=== PATIENT | female | born 1975 | race American Indian/Alaskan Native ===

== ENCOUNTER 2016-08-29 18:50 | Inpatient (IN) | payer MEDICARE ==
[2016-08-29 20:12] LABS: Red Blood Count 4.86 M/mm3 (3.65-5.03)
[2016-08-29 20:13] LABS: Hematocrit 38.6 % (30.3-42.9); Hemoglobin 12.4 gm/dl (10.1-14.3); Mean Corpuscular HGB Conc 32 % (30-34); Mean Corpuscular Hemoglobin 26 pg (28-32); Mean Corpuscular Volume 79 fl (79-97); Platelet Count 326 K/mm3 (140-440); Red Cell Distribution Width 14.6 % (13.2-15.2)
[2016-08-29 20:14] LABS: Basophils % (Auto) 0.3 % (0.0-1.8); Eosinophils % (Auto) 0.2 % (0.0-4.3)
[2016-08-29 20:23] LABS: Alanine Aminotransferase 25 units/L (7-56); Albumin 2.1 g/dL (3.9-5); Albumin/Globulin Ratio 0.4 %; Alkaline Phosphatase 164 units/L (35-129); Anion Gap 20 mmol/L; Bilirubin,Total 0.4 mg/dL (0.1-1.2); Blood Urea Nitrogen 10 mg/dL (7-17); Calcium 8.4 mg/dL (8.4-10.2); Carbon Dioxide 23 mmol/L (22-30); Chloride 89.3 mmol/L (98-107); Glucose 444 mg/dL (65-100); Potassium 4.3 mmol/L (3.6-5.0); Sodium 128 mmol/L (137-145); Total Protein 7.3 g/dL (6.3-8.2)
[2016-08-30 01:54] LABS: Bacteria,Urine 1+ /HPF (Negative); Bilirubin,Urine NEG (Negative); Blood,Urine MOD (Negative); Ketones,Urine NEG (Negative); Leukocyte Esterase,Urine NEG (Negative); Mucus,Urine FEW /HPF; Nitrite,Urine NEG (Negative)
[2016-08-30] MEDS ORDERED: VANCOMYCIN/NS 1 GM/250 ML 1 GM/250 ML BAG IV ONE (06:18)
--- NOTE | 2016-08-30 06:22 | Emergency Department Report ---
HPI - General Chief Complaint: Skin/Abscess/Foreign Body Time Seen by Provider: 08/30/16 06:10 - HPI HPI: 41-year-old Afro-Monegasque female presents to the emergency department from home with complaint of pain, intermittent fever, and feeling "sick" from a abdominal abscess. The patient was seen in for about 1 week ago for this abscess and was given clindamycin on a ten-day course. She has been taking the medication compliantly but says that the abscess is gotten larger, worse, and is causing other symptoms. She is not taken anything else for symptoms prior to presentation. Patient does have a history of hypertension and insulin- dependent diabetes. She currently lives in [place] and sees Dr. Lila Farr for her primary care needs but is trying to move to [place]. She denies any nausea, vomiting, chest pain or shortness of breath. ED Past Medical Hx - Past Medical History Previous Medical History?: Yes Hx Hypertension: Yes (seen by right of way appraiser with clearance) Hx Congestive Heart Failure: No Hx Diabetes: Yes Hx Renal Disease: No Hx Sickle Cell Disease: No Hx Asthma: Yes (stable on PRN inhalers; no recent flares) Hx COPD: No Hx HIV: No Additional medical history: High cholestrol. - Surgical History Past Surgical History?: Yes Additional Surgical History: c-sectionx3. abd surgery. - Social History Smoking Status: Never Smoker Substance Use Type: None - Medications Home Medications: Home Medications Medication Instructions Recorded Confirmed Last Taken Type Gabapentin [Gabapentin] 300 mg PO TID PRN 07/02/15 08/30/16 08/29/16 History Insulin Regular, Human [HumuLIN R] 40 unit SQ BS PRN 07/02/15 08/30/16 08/29/16 History Clindamycin [Clindamycin CAP] 300 mg PO Q6H 08/30/16 08/30/16 08/29/16 History ED Review of Systems ROS: Stated complaint: ABSCESS ON STOMACH Other details as noted in HPI Comment: All other systems reviewed and negative Constitutional: chills, fever Eyes: denies: eye pain, eye discharge, vision change ENT: denies: ear pain, throat pain Respiratory: denies: cough, shortness of breath, wheezing Cardiovascular: denies: chest pain, palpitations Gastrointestinal: abdominal pain. denies: nausea, vomiting Genitourinary: denies: urgency, dysuria, discharge Musculoskeletal: denies: back pain, joint swelling, arthralgia Skin: lesions, change in color Neurological: denies: headache, weakness, paresthesias Physical Exam - Physical Exam Vital Signs: Vital Signs 08/29/16 08/30/16 19:14 04:52 Temperature 99.7 F H Pulse Rate 119 H 110 H Respiratory 16 18 Rate Blood Pressure 154/95 Blood Pressure 127/82 [Right] O2 Sat by Pulse 100 100 Oximetry Physical Exam: GENERAL: The patient is well-developed well-nourished. HEENT: Normocephalic. Atraumatic. Extraocular motions are intact. Patient has moist mucous membranes. Pupils equal reactive to light bilaterally. NECK: Supple. Trachea is midline. CHEST/LUNGS: Clear to auscultation. There is no respiratory distress noted. HEART/CARDIOVASCULAR: Regular. There is no tachycardia. There is no gallop rub or murmur. ABDOMEN: Abdomen is soft. Patient has tenderness to palpation to the right lower quadrant of the abdomen where she has a cellulitis and abscess. Morbidly obese habitus. Patient has normal bowel sounds. SKIN: There is an area of cellulitis to the right lower quadrant of the abdomen with some erythema and thickened orange peel appearing skin. There is one area to the lateral portion of the cellulitis that appears to have been a previous abscess that is opened up and drained and there is another more medial portion that might be a more current, fluctuant abscess. NEURO: The patient is awake, alert, and oriented. The patient is cooperative. The patient has no focal neurologic deficits. The patient has normal speech. MUSCULOSKELETAL: There is no tenderness or deformity. There is no limitation range of motion. There is no evidence of acute injury. ED Course Vital Signs 08/29/16 08/30/16 19:14 04:52 Temperature 99.7 F H Pulse Rate 119 H 110 H Respiratory 16 18 Rate Blood Pressure 154/95 Blood Pressure 127/82 [Right] O2 Sat by Pulse 100 100 Oximetry ED Medical Decision Making - Lab Data Result diagrams: 08/29/16 19:35 08/29/16 19:35 - Radiology Data Radiology results: report reviewed CT of the abdomen and pelvis with IV contrast shows a new right lateral [place] hernia containing a normal loop of a descending colon. Interval hernia repair of midline periumbilical hernia. There is no evidence to suggest any ischemia or incarceration of the bowel. - Medical Decision Making This is a 41 year old female presents emergency Department with complaint of some right lower quadrant abdominal pain. She has a previous abscess and she does not think it is responding to the clindamycin she has been on. Patient does have a visible cellulitis and a superficial area that could be abscess. Patient has labs that show a leukocytosis, elevated lactic acid level. Patient' s vital signs show some mild tachycardia and a low-grade fever. All this together is concerning for sepsis. Blood cultures were sent and the patient was started on vancomycin. A CT of the abdomen and pelvis with IV contrast was done that shows a new spagelian hernia that is not incarcerated or strangulated. There is no obvious deep abdominal abscess but there is obviously visible superficial cellulitis and possible abscess there. Patient will be admitted to hospital for further evaluation and has been accepted for admission by will be adequate. Patient's blood sugar levels elevated. There is no visible acidosis on the labs. Unknown if there is any ketosis as the beta hydroxybutyrate is currently a send out test. Patient was given IV fluid resuscitation and IV insulin and her blood sugar will continue to be followed. - Differential Diagnosis abscess, cellulitis, diverticulitis, colitis Critical Care Time: No Critical care attestation.: If time is entered above; I have spent that time in minutes in the direct care of this critically ill patient, excluding procedure time. ED Disposition Clinical Impression: Abdominal wall cellulitis, Hyperglycemia Sepsis Qualifiers: Sepsis type: sepsis due to unspecified organism Qualified Code(s): A41.9 - Sepsis, unspecified organism Uncontrolled diabetes mellitus Qualifiers: Diabetes mellitus type: type 1 Diabetes mellitus complication status: with hyperglycemia Qualified Code(s): E10.65 - Type 1 diabetes mellitus with hyperglycemia Morbid obesity Qualifiers: Obesity type: unspecified obesity type Qualified Code(s): E66.01 - Morbid ( severe) obesity due to excess calories Disposition: OP ADMITTED IP TO THIS HOSP Is pt being admited?: Yes Condition: Stable Referrals: PRIMARY CARE,MD [Primary Care Provider] - 3-5 Days Time of Disposition: 10:21
[2016-08-30] MEDS ORDERED: NACL 0.9% 1000 ML 1,000 ML IV ONE (06:24)
[2016-08-30] MEDS ORDERED: TYLENOL PO ONE (07:58)
--- NOTE | 2016-08-30 08:56 | Cat Scan Report ---
FINAL REPORT EXAM: CT ABDOMEN PELVIS W CON HISTORY: Abd abscess TECHNIQUE: Standard enhanced CT of the abdomen and pelvis. Delayed images through the kidneys and bladder were obtained. Coronal and sagittal reconstruction was also performed. Contrast: 100 mL Omnipaque 300 given IV. PRIORS: CT a/P 11/14/2014 FINDINGS: There is no evidence for abscess or acute inflammatory process. There has been interval repair of a midline periumbilical hernia with ventral hernia mesh in place. However, there is now a right lateral spigelian hernia which contains a normal loop of ascending colon. Within the abdomen, the liver, spleen, pancreas, adrenal glands, and kidneys are unremarkable. The gallbladder has been surgically removed. No evidence for retroperitoneal or pelvic lymphadenopathy is seen. The bowel loops have normal caliber. No soft tissue mass, fluid collection, inflammatory change, or free air is seen within the abdomen or pelvis. The appendix is normal. Within the pelvis, the bladder is unremarkable. The uterus is normal. No evidence for mass or lymphadenopathy is seen in the pelvis. Images through the upper abdomen include the lung bases which are expanded and clear. Bony structures show no focal abnormalities and are intact. IMPRESSION: 1. New right lateral spigelian hernia containing a normal loop of ascending colon 2. Interval hernia repair of a midline periumbilical hernia 3. No evidence for abscess.
[2016-08-30] MEDS ORDERED: D50W (25GM) IV PRN (10:43)
[2016-08-30] MEDS ORDERED: VANCOMYCIN VIAL IV SCH (11:15)
--- NOTE | 2016-08-30 11:24 | History and Physical Report ---
History of Present Illness Date of examination: 08/30/16 Date of admission: 08/30/16 Chief complaint: Abscess in the anterior abdominal wall, very elevated blood sugar History of present illness: Patient is a 41-year-old lady was a history of diabetes mellitus, was in the process of moving to [place] 2 weeks ago. On the left her that she discovered that she had redness with abscess in the right lower quadrants of the anterior abdominal wall. She doctor who started her on 2 antibiotics. She's been unable to eat because of her symptoms. Has fever and chills. Denies any nausea vomiting. Has polyuria polydipsia and polyphagia. She has been in the 200s at home. Patient has not been taking her insulin because she has been unable to eat since onset of her symptoms. Denies any chest pain, no shortness of breath orthopnea paroxysmal nocturnal dyspnea. At emergency department patient also was found to be 440. Commenced on IV medications and insulin. Ketones were negative Past History Past Medical History: diabetes (with diabetic peripheral neuropathy, asthma, obesity), hypertension, hyperlipidemia Medications and Allergies Allergies Allergy/AdvReac Type Severity Reaction Status Date / Time No Known Allergies Allergy Verified 05/02/15 15:33 Home Medications Medication Instructions Recorded Confirmed Last Taken Type Gabapentin [Gabapentin] 300 mg PO TID PRN 07/02/15 08/30/16 08/29/16 History Insulin Regular, Human [HumuLIN R] 40 unit SQ BS PRN 07/02/15 08/30/16 08/29/16 History Clindamycin [Clindamycin CAP] 300 mg PO Q6H 08/30/16 08/30/16 08/29/16 History Active Meds: Active Medications Aspirin (Aspirin) 325 mg PO QDAY RAJAN Dextrose (D50w (25gm)) 50 ml IV PRN PRN PRN Reason: Hypoglycemia Gabapentin (Neurontin) 300 mg PO TID PRN PRN Reason: Pain Heparin Sodium (Porcine) (Heparin) 5,000 unit SUB-Q Q12HR RAJAN Levofloxacin/Dextrose (Levaquin 750mg/150ml) 750 mg in 150 mls @ 100 mls/hr IV Q24HR RAJAN PRN Reason: Protocol Insulin Aspart (Novolog) 0 units SUB-Q ACHS RAJAN PRN Reason: Protocol Insulin Detemir (Levemir) 20 units SUB-Q QHS RAJAN Vancomycin HCl (Vancomycin Pharmacy To Dose) 1 each IV PKCONSULT ON LICENSE OF [facility] PRN Reason: Protocol Vancomycin HCl (Vancomycin Vial) 1,000 mg IV DAILY ON LICENSE OF [facility] PRN Reason: Protocol Review of systems Constitutional: Well Nouridhed and Well developed. Obese Head: NC/ AT Eyes: Denies any visual impairments. No discharge from the eyes Nose: Denies any rhinorrhea or epistaxis Throats: Denies any post nasal drainage. Ears: Denies any hearing deficits Cardiovascular system: Denies any chest pain, shortness of breath, orthopnea, paroxysmal nocturnal dyspnea, or palpitation. Respiratory system: Denies any cough, difficulty breathing, wheezing, pleuritic chest pain, Gastrointestinal system: Denies any abdominal pain, nausea vomiting, hematemesis or melena. Neurological system: Denies any headache, slurred speech, facial droop, lateralizing weakness Genitalia system: Denies any dysuria, urinary frequency or urgency, urethral discharge Skin: Abscess right lower quadrant of the anterior abdominal wall draining yellowish-brown. Hematological: Denies any cervical tenderness hemorrhages or petechia. Immunological: Denies any multiple septic spots, Lymphatic: Denies any generalized lymphadenopathy. Endocrine: Denies any polyuria, polydipsia, polyphagia. No heat or cold intolerance. Musculoskeletal system: No joint pain or swelling. Psych: No visual, tactile, auditory or hallucination Exam - Constitutional Vitals: Temp Pulse Resp BP Pulse Ox 100.8 F H 104 H 16 141/86 97 08/30/16 07:46 08/30/16 07:46 08/30/16 07:46 08/30/16 08:00 08/30/16 08:00 General appearance: Present: no acute distress, obese - EENT Eyes: Present: PERRL ENT: hearing intact, clear oral mucosa - Neck Neck: Present: supple, normal ROM - Respiratory Respiratory effort: normal Respiratory: bilateral: CTA - Cardiovascular Heart Sounds: Present: S1 & S2. Absent: rub, click - Extremities Extremities: pulses symmetrical, No edema Peripheral Pulses: within normal limits - Abdominal General gastrointestinal: Present: soft, non-tender, non-distended, normal bowel sounds Female genitourinary: Present: normal - Integumentary Integumentary: Present: clear, warm, dry, erythema (on the right lower quadrant and anterior abdominal wall) - Musculoskeletal Musculoskeletal: gait normal, strength equal bilaterally - Psychiatric Psychiatric: appropriate mood/affect, intact judgment & insight - Neurologic Neurologic: CNII-XII intact, moves all extremities Results - Labs CBC & Chem 7: 08/29/16 19:35 08/29/16 19:35 Labs: Abnormal lab results 08/29/16 08/29/16 08/30/16 Range/Units 19:35 19:35 07:07 WBC 15.0 H (4.5-11.0) K/mm3 MCH 26 L (28-32) pg Lymph % (Auto) 8.1 L (13.4-35.0) % [place] % (Auto) 9.0 H (0.0-7.3) % [place] # 1.4 H (0.0-0.8) K/mm3 Seg Neutrophils % 82.4 H (40.0-70.0) % Seg Neutrophils # 12.3 H (1.8-7.7) K/mm3 Sodium 128 L (137-145) mmol/L Chloride 89.3 L (98-107) mmol/L Glucose 444 H (65-100) mg/dL Lactic Acid 2.1 H* (0.7-2.0) mmol/L Alkaline Phosphatase 164 H (35-129) units/L Albumin 2.1 L (3.9-5) g/dL Assessment and Plan 1. Abscess with cellulitis of the anterior abdominal wall right lower quadrant : Obtain a wound culture, blood culture, wound care, was patient on IV vancomycin and Levaquin. Likely organism is staph aureus from uncontrolled diabetes mellitus Patient has similar experience in the left lower quadrant on the anterior abdominal wall. Surgical consult obtained. Spoke with Dr. Mccracken 2. Sepsis: From anterior abdominal wall abscess. Patient has sinus tachycardia , tachypnea, leukocytosis and fever 100.8. Blood culture obtained. Wound culture obtained. Patient commenced on IV Levaquin and vancomycin. Wound care ordered. 3. Diabetes mellitus type 2: Uncontrolled. Noncompliant with medication. Commence patient on sliding scale insulin. Consistent, hydrated diet. Optimize wound infection control to enhance glycemic control 4. Diabetic peripheral neuropathy: Continue with gabapentin. 5. Morbid obesity: Controlled. 6. Obstructive sleep apnea: Patient is on CPAP machine at night. will continue with the same 7. DVT prophylaxis with heparin, GI prophylaxis with Pepcid spent 35 minutes during this admission process and that her patient care review of medical records and laboratory data. Explained To the Patient Was Presents Understanding - Patient Problems (1) Abdominal wall abscess Onset Date: 08/30/16 Current Visit: Yes Status: Acute Plan to address problem: Abscess with Cellulitis likely secondary to staph infection from uncontrolled diabetes mellitus. Patient has similar episode on the left lateral aspect of the anterior abdominal wall status post I&D. We will obtain wound culture, blood culture, commence patient on Levaquin and vancomycin. Surgical consult was obtained for incision and drainage. Discussed with Dr. Mccracken. (2) Sepsis Onset Date: 08/30/16 Current Visit: Yes Status: Acute Qualifiers: Sepsis type: sepsis due to unspecified organism Qualified Code(s): A41.9 - Sepsis, unspecified organism (3) Diabetes Onset Date: 08/30/16 Current Visit: No Status: Acute Qualifiers: Diabetes mellitus type: D Diabetes mellitus complication status: D Diabetes mellitus complication detail: D Diabetic retinopathy severity: D Proliferative retinopathy type: P Diabetes mellitus macular edema: D Diabetes mellitus terminal operator insulin use: D Laterality: L Chronic kidney disease stage: C (4) Hypertension Onset Date: 08/30/16 Current Visit: No Status: Acute Qualifiers: Hypertension type: H
[2016-08-30] MEDS ORDERED: ASPIRIN ONE (11:29)
[2016-08-30] MEDS ORDERED: HEPARIN ONE (11:29)
[2016-08-30] MEDS: ASPIRIN PO SCH (11:41)
[2016-08-30] MEDS: NOVOLOG SUB-Q SCH ×3 (11:41→22:49)
[2016-08-30] MEDS: HEPARIN SUB-Q SCH ×2 (11:41→22:49)
[2016-08-30] MEDS ORDERED: VANCOMYCIN PHARMACY TO DOSE IV SCH (12:00)
[2016-08-30] MEDS: LEVAQUIN 750MG/150ML 750 MG/150 ML BAG IV SCH (13:11)
--- NOTE | 2016-08-30 14:49 | Consultation ---
HISTORY OF PRESENT ILLNESS: I was called by Dr. Blake to see this patient. She is a 41-year-old black female, overweight. Her BSA is 2.89 and BMI is 56.7. She is 5 feet 7 inches. She is very obese. She is a known case of diabetes mellitus for the last 10-11 years; she is on insulin for that, which I believe maybe she is not taking it really well. Her blood sugar yesterday at home was in the range of about 400 according to her. I was called to evaluate her because of some cellulitis over the right lower quadrant with evidence of ? an abscess. She had a sinus tract draining some purulent material in that area. She had no nausea or vomiting. She had a spigelian hernia on the right side. She had questionable recurrence of her umbilical hernia that was repaired about 13 months ago. I was asked to evaluate her from a general surgical point of view. ALLERGIES: Allergic reactions were denied. MEDICATIONS: Mainly insulin and she is on vancomycin and Levaquin at the present time, by [place]. SOCIAL HISTORY: She has 3 children. She does not work. PHYSICAL EXAMINATION: GENERAL: At this point showed a very obese, bonita black female. She is in no distress. She told me she felt a little bit relieved now. HEAD AND NECK: Essentially negative. BREASTS: Symmetric. No evidence of any specific or discrete masses. CHEST: Essentially clear to me. HEART: Sounds normal. ABDOMEN: Protuberant, very stuporous, severe tenderness to the right lower quadrant with evidence of an induration and redness with a sinus tract releasing purulent material in the mid right lower abdomen. EXTREMITIES: Showed no evidence of any DVT, moderate edema. IMPRESSION: 1. Cellulitis with abscess formation ? right lower quadrant. 2. Status post umbilical hernia repair about 1 year ago. 3. Spigelian hernia, right side. 4. Exogenous obesity. 5. Diabetes mellitus that is not well controlled. Surgically speaking, we need to pursue that further. She is already on antibiotics. We will try to incise and drain and/or pack this area in the right lower quadrant on Thursday and then we will go from there. I had a lengthy talk with the patient as to the problem that you are facing. She understands, and we will go from there. JOB# [id number] MING/TEMITOPE
[2016-08-30] MEDS: VANCOMYCIN VIAL 1,500 MG in NACL 0.9% 500 ML 500 ML IV SCH ×2 (15:56→22:50)
[2016-08-30] MEDS: NEURONTIN PO PRN (22:48)
[2016-08-30] MEDS: LEVEMIR SUB-Q SCH (22:49)
[2016-08-31 06:40] LABS: Hematocrit 29.8 % (30.3-42.9); Hemoglobin 9.5 gm/dl (10.1-14.3); Mean Corpuscular HGB Conc 32 % (30-34); Mean Corpuscular Hemoglobin 25 pg (28-32); Mean Corpuscular Volume 79 fl (79-97); Platelet Count 302 K/mm3 (140-440); Red Blood Count 3.78 M/mm3 (3.65-5.03); Red Cell Distribution Width 14.8 % (13.2-15.2); White Blood Count 15.1 K/mm3 (4.5-11.0)
[2016-08-31 06:53] LABS: Alanine Aminotransferase 17 units/L (7-56); Albumin 2.3 g/dL (3.9-5); Albumin/Globulin Ratio 0.5 %; Alkaline Phosphatase 127 units/L (35-129); Anion Gap 16 mmol/L; BUN/Creatinine Ratio 17.77; Bilirubin,Total 0.3 mg/dL (0.1-1.2); Blood Urea Nitrogen 16 mg/dL (7-17); Carbon Dioxide 25 mmol/L (22-30); Chloride 96.8 mmol/L (98-107); Glucose 170 mg/dL (65-100); Magnesium 2.1 mg/dL (1.7-2.3); Phosphorous 2.7 mg/dL (2.5-4.5); Potassium 4.2 mmol/L (3.6-5.0); Sodium 134 mmol/L (137-145); Total Protein 6.6 g/dL (6.3-8.2)
[2016-08-31] MEDS: VANCOMYCIN VIAL 1,500 MG in NACL 0.9% 500 ML 500 ML IV SCH ×2 (07:45→16:59)
[2016-08-31 08:25] LABS: Basophils % (Manual) 0 % (0.0-1.8); Blastocytes % (Manual) 0 %; Eosinophils % (Manual) 0 % (0.0-4.3)
[2016-08-31 08:26] LABS: Anisocytosis 1+
[2016-08-31 08:27] LABS: Diff Status Complete
[2016-08-31] MEDS: NOVOLOG SUB-Q SCH ×4 (08:52→23:41)
--- NOTE | 2016-08-31 09:49 | Progress Note ---
Assessment and Plan Assessment and plan: 1. Abscess with cellulitis of the anterior abdominal wall right lower quadrant : Obtain a wound culture, blood culture, wound care, continue IV abx, fup with surgery, Dr delarosa for I&D, fup intraop cultures 2. Sepsis: From anterior abdominal wall abscess. continue sepsis protocol, continue abx 3. Diabetes mellitus type 2: optimize insulins 4. Diabetic peripheral neuropathy: Continue with gabapentin. 5. Obstructive sleep apnea: continue CPAP [facility] Hospitalist Physical - Constitutional Vitals: Temp Pulse Resp BP Pulse Ox 99.9 F H 93 H 20 131/64 95 08/31/16 08:28 08/31/16 08:28 08/31/16 08:28 08/31/16 08:28 08/31/16 08:28 General appearance: Present: no acute distress, obese Results - Labs CBC & Chem 7: 08/31/16 05:50 08/31/16 05:50 Labs: Laboratory Last Values WBC 15.1 K/mm3 (4.5-11.0) H 08/31/16 05:50 RBC 3.78 M/mm3 (3.65-5.03) 08/31/16 05:50 Hgb 9.5 gm/dl (10.1-14.3) L 08/31/16 05:50 Hct 29.8 % (30.3-42.9) L D 08/31/16 05:50 MCV 79 fl (79-97) 08/31/16 05:50 MCH 25 pg (28-32) L 08/31/16 05:50 MCHC 32 % (30-34) 08/31/16 05:50 RDW 14.8 % (13.2-15.2) 08/31/16 05:50 Plt Count 302 K/mm3 (140-440) 08/31/16 05:50 Lymph % (Auto) [employer] 08/31/16 05:50 [place] % (Auto) [employer] 08/31/16 05:50 Eos % (Auto) [employer] 08/31/16 05:50 Baso % (Auto) [employer] 08/31/16 05:50 Lymph # [employer] 08/31/16 05:50 Gall[place] # [employer] 08/31/16 05:50 Eos # [employer] 08/31/16 05:50 Baso # [employer] 08/31/16 05:50 Add Manual Diff Complete 08/31/16 05:50 Total Counted 100 08/31/16 05:50 Seg Neutrophils % [employer] 08/31/16 05:50 Seg Neuts % (Manual) 82.0 % (40.0-70.0) H 08/31/16 05:50 Band Neutrophils % 0 % 08/31/16 05:50 Lymphocytes % (Manual) 7.0 % (13.4-35.0) L 08/31/16 05:50 Reactive Lymphs % (Man) 0 % 08/31/16 05:50 Monocytes % (Manual) 11.0 % (0.0-7.3) H 08/31/16 05:50 Eosinophils % (Manual) 0 % (0.0-4.3) 08/31/16 05:50 Basophils % (Manual) 0 % (0.0-1.8) 08/31/16 05:50 Metamyelocytes % 0 % 08/31/16 05:50 Myelocytes % 0 % 08/31/16 05:50 Promyelocytes % 0 % 08/31/16 05:50 Blast Cells % 0 % 08/31/16 05:50 Nucleated RBC % Not Reportable 08/31/16 05:50 Seg Neutrophils # [employer] 08/31/16 05:50 Seg Neutrophils # Man 12.4 K/mm3 (1.8-7.7) H 08/31/16 05:50 Band Neutrophils # 0.0 K/mm3 08/31/16 05:50 Lymphocytes # (Manual) 1.1 K/mm3 (1.2-5.4) L 08/31/16 05:50 Abs React Lymphs (Man) 0.0 K/mm3 08/31/16 05:50 Monocytes # (Manual) 1.7 K/mm3 (0.0-0.8) H 08/31/16 05:50 Eosinophils # (Manual) 0.0 K/mm3 (0.0-0.4) 08/31/16 05:50 Basophils # (Manual) 0.0 K/mm3 (0.0-0.1) 08/31/16 05:50 Metamyelocytes # 0.0 K/mm3 08/31/16 05:50 Myelocytes # 0.0 K/mm3 08/31/16 05:50 Promyelocytes # 0.0 K/mm3 08/31/16 05:50 Blast Cells # 0.0 K/mm3 08/31/16 05:50 WBC Morphology Not Reportable 08/31/16 05:50 Hypersegmented Neuts Not Reportable 08/31/16 05:50 Hyposegmented Neuts Not Reportable 08/31/16 05:50 Hypogranular Neuts Not Reportable 08/31/16 05:50 Smudge Cells Not Reportable 08/31/16 05:50 Toxic Granulation Not Reportable 08/31/16 05:50 Toxic Vacuolation Not Reportable 08/31/16 05:50 Dohle Bodies Not Reportable 08/31/16 05:50 Pelger-Huet Anomaly Not Reportable 08/31/16 05:50 Eddy Rods Not Reportable 08/31/16 05:50 Platelet Estimate Appears normal 08/31/16 05:50 Clumped Platelets Not Reportable 08/31/16 05:50 Plt Clumps, EDTA Not Reportable 08/31/16 05:50 Large Platelets Not Reportable 08/31/16 05:50 Giant Platelets Not Reportable 08/31/16 05:50 Platelet Satelliting Not Reportable 08/31/16 05:50 Plt Morphology Comment Not Reportable 08/31/16 05:50 RBC Morphology Not Reportable 08/31/16 05:50 Dimorphic RBCs Not Reportable 08/31/16 05:50 Polychromasia Not Reportable 08/31/16 05:50 Hypochromasia Not Reportable 08/31/16 05:50 Poikilocytosis Not Reportable 08/31/16 05:50 Anisocytosis 1+ 08/31/16 05:50 Microcytosis Not Reportable 08/31/16 05:50 Macrocytosis Not Reportable 08/31/16 05:50 Spherocytes Not Reportable 08/31/16 05:50 Pappenheimer Bodies Not Reportable 08/31/16 05:50 Sickle Cells Not Reportable 08/31/16 05:50 Target Cells Not Reportable 08/31/16 05:50 Tear Drop Cells Not Reportable 08/31/16 05:50 Ovalocytes Not Reportable 08/31/16 05:50 Helmet Cells Not Reportable 08/31/16 05:50 [place] Bodies Not Reportable 08/31/16 05:50 [place] Rings Not Reportable 08/31/16 05:50 Praveen Cells Not Reportable 08/31/16 05:50 Bite Cells Not Reportable 08/31/16 05:50 Crenated Cell Not Reportable 08/31/16 05:50 Elliptocytes Not Reportable 08/31/16 05:50 Acanthocytes (Spur) Not Reportable 08/31/16 05:50 Rouleaux Not Reportable 08/31/16 05:50 Hemoglobin C Crystals Not Reportable 08/31/16 05:50 Schistocytes Not Reportable 08/31/16 05:50 Malaria parasites Not Reportable 08/31/16 05:50 Juan [place] Bodies Not Reportable 08/31/16 05:50 Hem Pathologist Commnt No 08/31/16 05:50 VBG pH 7.368 (7.320-7.420) 08/30/16 07:07 Sodium 134 mmol/L (137-145) L 08/31/16 05:50 Potassium 4.2 mmol/L (3.6-5.0) 08/31/16 05:50 Chloride 89.3 mmol/L (98-107) L 08/29/16 19:35 Carbon Dioxide 25 mmol/L (22-30) 08/31/16 05:50 Anion Gap 20 mmol/L 08/29/16 19:35 BUN 16 mg/dL (7-17) 08/31/16 05:50 Creatinine 0.9 mg/dL (0.7-1.2) 08/31/16 05:50 Estimated GFR > 60 ml/min 08/31/16 05:50 BUN/Creatinine Ratio 17.77 % 08/31/16 05:50 Glucose 170 mg/dL (65-100) H 08/31/16 05:50 Hemoglobin A1c 9.7 % (4-6) H 08/30/16 12:09 Lactic Acid 1.2 mmol/L (0.7-2.0) 08/30/16 11:15 Calcium 8.0 mg/dL (8.4-10.2) L 08/31/16 05:50 Phosphorus 2.7 mg/dL (2.5-4.5) 08/31/16 05:50 Magnesium 2.1 mg/dL (1.7-2.3) 08/31/16 05:50 Total Bilirubin 0.3 mg/dL (0.1-1.2) 08/31/16 05:50 AST 19 units/L (5-40) 08/31/16 05:50 ALT 17 units/L (7-56) 08/31/16 05:50 Alkaline Phosphatase 127 units/L (35-129) 08/31/16 05:50 Total Protein 6.6 g/dL (6.3-8.2) 08/31/16 05:50 Albumin 2.3 g/dL (3.9-5) L 08/31/16 05:50 Albumin/Globulin Ratio 0.5 % 08/31/16 05:50 Triglycerides 126 mg/dL (2-149) 08/30/16 12:09 Cholesterol 106 mg/dL (50-199) 08/30/16 12:09 LDL Cholesterol Direct 74 mg/dL (50-130) 08/30/16 12:09 HDL Cholesterol 7 mg/dL (40-59) L 08/30/16 12:09 Cholesterol/HDL Ratio 15.14 % 08/30/16 12:09 Urine Color Yellow (Yellow) 08/29/16 Unknown Urine Turbidity Clear (Clear) 08/29/16 Unknown Urine pH 6.0 (5.0-7.0) 08/29/16 Unknown Ur Specific [place] 1.027 (1.003-1.030) 08/29/16 Unknown Urine Protein 100 mg/dl mg/dL (Negative) 08/29/16 Unknown Urine Glucose (UA) >=500 mg/dL (Negative) 08/29/16 Unknown Urine Ketones Neg mg/dL (Negative) 08/29/16 Unknown Urine Blood Mod (Negative) 08/29/16 Unknown Urine Nitrite Neg (Negative) 08/29/16 Unknown Urine Bilirubin Neg (Negative) 08/29/16 Unknown Urine Urobilinogen 4.0 mg/dL (<2.0) 08/29/16 Unknown Ur Leukocyte Esterase Neg (Negative) 08/29/16 Unknown Urine WBC (Auto) 3.0 /HPF (0.0-6.0) 08/29/16 Unknown Urine RBC (Auto) 7.0 /HPF (0.0-6.0) 08/29/16 Unknown U Epithel Cells (Auto) 2.0 /HPF (0-13.0) 08/29/16 Unknown Urine Bacteria (Auto) 1+ /HPF (Negative) 08/29/16 Unknown Urine Mucus Few /HPF 08/29/16 Unknown Urine HCG, Qual Negative (Negative) 08/30/16 Unknown Vancomycin Trough 20.5 ug/mL (5.0-20.0) H 08/31/16 05:50 Ketones mmol/L (-0.28) 08/30/16 07:07
[2016-08-31] MEDS: MORPHINE IV PRN ×3 (09:56→23:43)
[2016-08-31] MEDS: ASPIRIN PO SCH (11:52)
[2016-08-31] MEDS: HEPARIN SUB-Q SCH ×2 (11:52→22:37)
[2016-08-31] MEDS: NEURONTIN PO PRN (11:53)
[2016-08-31] MEDS: LEVAQUIN 750MG/150ML 750 MG/150 ML BAG IV SCH (15:02)
--- NOTE | 2016-08-31 16:52 | Progress Note ---
Subjective Patient Reports: Positive: no new complaints, feels better Narrative: Will incise and drain under GA in AM ,sugar still high . Objective Vital Signs - 12hr 08/31/16 08/31/16 08/31/16 06:00 08:28 12:42 Temperature 98.0 F 99.9 F H 98.9 F Pulse Rate [ 99 H 93 H 92 H From Monitor] Respiratory 22 20 20 Rate Blood Pressure 127/67 131/64 155/78 [Left Arm] O2 Sat by Pulse 98 95 Oximetry 08/31/16 16:21 Temperature 98.3 F Pulse Rate [ 94 H From Monitor] Respiratory 20 Rate Blood Pressure 154/89 [Left Arm] O2 Sat by Pulse Oximetry - Labs 08/31/16 05:50 08/31/16 05:50 Diabetes panel 08/31/16 Range/Units 05:50 Sodium 134 L (137-145) mmol/L Potassium 4.2 (3.6-5.0) mmol/L Carbon Dioxide 25 (22-30) mmol/L BUN 16 (7-17) mg/dL Creatinine 0.9 (0.7-1.2) mg/dL Glucose 170 H (65-100) mg/dL Calcium 8.0 L (8.4-10.2) mg/dL AST 19 (5-40) units/L ALT 17 (7-56) units/L Alkaline Phosphatase 127 (35-129) units/L Total Protein 6.6 (6.3-8.2) g/dL Albumin 2.3 L (3.9-5) g/dL Calcium panel 08/31/16 Range/Units 05:50 Calcium 8.0 L (8.4-10.2) mg/dL Phosphorus 2.7 (2.5-4.5) mg/dL Albumin 2.3 L (3.9-5) g/dL Pituitary panel 08/31/16 Range/Units 05:50 Sodium 134 L (137-145) mmol/L Potassium 4.2 (3.6-5.0) mmol/L Carbon Dioxide 25 (22-30) mmol/L BUN 16 (7-17) mg/dL Creatinine 0.9 (0.7-1.2) mg/dL Glucose 170 H (65-100) mg/dL Calcium 8.0 L (8.4-10.2) mg/dL Adrenal panel 08/31/16 Range/Units 05:50 Sodium 134 L (137-145) mmol/L Potassium 4.2 (3.6-5.0) mmol/L Carbon Dioxide 25 (22-30) mmol/L BUN 16 (7-17) mg/dL Creatinine 0.9 (0.7-1.2) mg/dL Glucose 170 H (65-100) mg/dL Calcium 8.0 L (8.4-10.2) mg/dL Total Bilirubin 0.3 (0.1-1.2) mg/dL AST 19 (5-40) units/L ALT 17 (7-56) units/L Alkaline Phosphatase 127 (35-129) units/L Total Protein 6.6 (6.3-8.2) g/dL Albumin 2.3 L (3.9-5) g/dL
[2016-09-01] MEDS: VANCOMYCIN VIAL 1,500 MG in NACL 0.9% 500 ML 500 ML IV SCH ×3 (00:29→17:44)
[2016-09-01] MEDS: LEVEMIR SUB-Q SCH ×2 (00:29→22:51)
[2016-09-01 06:05] LABS: Basophils % (Auto) 0.3 % (0.0-1.8); Eosinophils % (Auto) 0.7 % (0.0-4.3); Hematocrit 28.9 % (30.3-42.9); Hemoglobin 9.4 gm/dl (10.1-14.3); Mean Corpuscular HGB Conc 33 % (30-34); Mean Corpuscular Volume 79 fl (79-97); Platelet Count 311 K/mm3 (140-440); Red Blood Count 3.66 M/mm3 (3.65-5.03); Red Cell Distribution Width 15.1 % (13.2-15.2); White Blood Count 14.3 K/mm3 (4.5-11.0)
[2016-09-01 06:10] LABS: Mean Corpuscular Hemoglobin 26 pg (28-32)
[2016-09-01 06:28] LABS: Alanine Aminotransferase 15 units/L (7-56); Albumin 2.1 g/dL (3.9-5); Albumin/Globulin Ratio 0.5 %; Alkaline Phosphatase 132 units/L (35-129); Anion Gap 16 mmol/L; Bilirubin,Total 0.3 mg/dL (0.1-1.2); Blood Urea Nitrogen 16 mg/dL (7-17); Carbon Dioxide 25 mmol/L (22-30); Glucose 151 mg/dL (65-100); Potassium 4.2 mmol/L (3.6-5.0); Sodium 135 mmol/L (137-145); Total Protein 6.4 g/dL (6.3-8.2)
[2016-09-01] MEDS: NOVOLOG SUB-Q SCH ×4 (08:15→22:50)
--- NOTE | 2016-09-01 10:45 | Admit Criteria Form ---
Admission Criteria Documentation: CELLULITIS Clinical Indications for Admission to Inpatient Care (Place 'X' for any and all applicable criteria): Admission is indicated for ANY ONE of the following(1)(2)(3)(4)(5): [ ]I. Limb-threatening infection [X]II. High-risk comorbid condition as indicated by ANY ONE of the following: [X]a) Uncontrolled diabetes (eg, HbA1c greater than 10% (0.1)) [ ]b) Cirrhosis [ ]c) Neutropenia [ ]d) Asplenia [ ]e) Immunosuppression [ ]f) Symptomatic heart failure [ ]III. Failure of outpatient therapy as indicated by ALL of the following: [ ]a) Progression or no improvement after adequate trial (minimum of 48 hours, with longer period for stable lower extremity infection) [ ]b) Adequate antibiotic regimen as indicated by use of ANY ONE of the following: [ ]i) First-generation cephalosporin (e.g., cephalexin) [ ]ii) Antistaphylococcal penicillin (e.g., dicloxacillin) [ ]iii) Penicillin-allergic patient regimen (clindamycin, extended-spectrum fluoroquinolone, or doxycycline) [ ]iv) Resistant organism (eg, methicillin-resistant Staphylococcus aureus) regimen (6) [ ]c) Outpatient intravenous therapy regimen is not appropriate due to ANY ONE of the following. (7)(8)(9)(10): [ ]i) It was tried and was not successful (eg, progression of infection). [ ]ii) It is not available or cannot be arranged in a clinically appropriate time frame (e.g., the next day). [ ]iii) Clinical presentation (eg, acuity of infection, rapidity of progression, confirmed or suspected bacteremia) is judged to require ALL of the following: [ ]1) Immediate initiation of intravenous therapy ( eg, cannot wait for next day) [ ]2) Intensity of patient monitoring and observation (eg, vital sign measurement, checks for infection progression) that cannot be provided at other than inpatient level of care [ ]IV. Mental status changes [ ]V. Bacteremia [ ]. Hemodynamic instability [ ]VII. Suspected necrotizing soft tissue infection (e.g., gas in tissue)(11)( 12) [ ]VIII. Orbital infection (13)(14) [X]IX. Associated surgical procedure (e.g., abscess drainage, debridement) not amenable to outpatient, emergency department, or observation care [ ]X. Cutaneous gangrene [ ]XI. High fever (temperature greater than 39.5 degrees C (103.1 degrees F) (oral)) not responsive to outpatient, emergency department, or observation care therapy [ ]XIII. Inpatient admission required rather than observation care (Also use Cellulitis: Observation Care as appropriate) because of ANY ONE of the following : [ ]a) Periorbital or perineal infection that is severe or worsening [ ]b) Severe pain requiring acute inpatient management [ ]c) IV fluid to replace significant ongoing (e.g., for over 24 hours) losses (greater than 3L/m2 per day) [ ]d) Compartment syndrome monitoring (17) [ ]e) Strict or protective (eg, laminar flow) isolation [ ]f) Urgent debridement or skin grafting [ ]g) Bone or joint debridement [ ]h) Immediate inpatient surgery [ ]i) Other condition, treatment or monitoring requiring inpatient admission Extended stay beyond goal length of stay may be needed for (1)(18): [ ]a) Necrotizing soft tissue infection or fasciitis [ ]b) Gram-negative infection [ ]c) Methicillin-resistant Staphylococcal aureus (MRSA) infection [ ]d) Peripheral venous insufficiency with cellulitis [ ]e) Extensive edema [ ]f) Sepsis or continued Hemodynamic instability [ ]g) Continued high fever or mental status change [ ]h) Bacteremia [ ]i) Active serious comorbid conditions ( eg, heart failure, renal insufficiency) The original [facility] content created by [facility] [employer] has been revised. The portions of the content which have been revised are identified through the use of italic text or in bold, and [facility] has neither reviewed nor approved the modified material. All other unmodified content is copyright [facility] Please see references footnoted in the original [facility] [employer] edition 2016 Admission Criteria Met: Yes
[2016-09-01] MEDS: ASPIRIN PO SCH (11:12)
[2016-09-01] MEDS: HEPARIN SUB-Q SCH ×2 (11:13→22:54)
--- NOTE | 2016-09-01 11:47 | Anesthesia Consultation ---
Anesthesia Consult and Med Hx Date of service: 09/01/16 - Airway Anesthetic Teeth Evaluation: Good ROM Head & Neck: Adequate Mental/Hyoid Distance: Adequate Mallampati Class: Class II Intubation Access Assessment: Probably Good - Pulmonary Exam CTA: Yes - Cardiac Exam Cardiac Exam: RRR - Pre-Operative Health Status ASA Pre-Surgery Classification: ASA3 Proposed Anesthetic Plan: General - Pulmonary Hx Smoking: No Hx Asthma: Yes (MILD) Hx Respiratory Symptoms: No COPD: No Hx Pneumonia: No Hx Sleep Apnea: No - Cardiovascular System Hx Hypertension: Yes Hx Coronary Artery Disease: No - Central Nervous System Hx Seizures: No CVA: No Hx Psychiatric Problems: No - Gastrointestinal Hx Gastroesophageal Reflux Disease: No - Endocrine Hx Renal Disease: No Hx End Stage Renal Disease: No Hx Insulin Dependent Diabetes: Yes (since 2001) - Hematic Hx Anemia: No Hx Sickle Cell Disease: No - Other Systems Hx Alcohol Use: No Hx Substance Use: No Hx Cancer: No Hx Obesity: Yes (BMI=52)
--- NOTE | 2016-09-01 11:48 | Anesthesia Day of Surgery ---
Anesthesia Day of Surgery - Day of Surgery Patient Examined: Yes Patient H&P Reviewed: Yes Patient is NPO: Yes
[2016-09-01] MEDS ORDERED: PEPCID IV NR (12:00)
[2016-09-01] MEDS ORDERED: VERSED IV NR (12:00)
[2016-09-01] MEDS: LEVAQUIN 750MG/150ML 750 MG/150 ML BAG IV SCH (12:06)
[2016-09-01] MEDS: NACL 0.9% 1000 ML 1,000 ML IV SCH ×2 (12:23→17:45)
[2016-09-01] MEDS ORDERED: PROAIR IH ONE (12:57)
[2016-09-01] MEDS ORDERED: DIPRIVAN 10 MG/ML IV ONE ×2 (12:57→13:29)
[2016-09-01] MEDS ORDERED: NACL 0.9% 1000 ML 1,000 ML IV SCH (13:00)
[2016-09-01] MEDS ORDERED: XYLOCAINE MPF 2% ONE (13:02)
[2016-09-01] MEDS ORDERED: ZEMURON IV ONE (13:02)
[2016-09-01] MEDS ORDERED: SUBLIMAZE ONE (13:03)
[2016-09-01] MEDS ORDERED: VERSED ONE (13:03)
[2016-09-01] MEDS ORDERED: QUELICIN ONE (13:25)
[2016-09-01] MEDS ORDERED: ZOFRAN ONE (13:42)
[2016-09-01] MEDS ORDERED: NACL 0.9% IR ONE (14:00)
[2016-09-01] MEDS ORDERED: DILAUDID ONE (14:46)
[2016-09-01] MEDS: DILAUDID IV PRN ×4 (15:41→16:10)
[2016-09-01] MEDS: MORPHINE IV PRN ×2 (17:35→22:00)
--- NOTE | 2016-09-01 17:36 | Post Anesthesia Evaluation ---
- Post Anesthesia Evaluation Patient Participated: Yes Airway Patent: Yes Stable Respiratory Function: Yes Nausea/Vomiting: No Temp > 96.8F: Yes Pain Manageable: Yes Adequeate Hydration: Yes Anesthesia Complications: No Block Receding Appropriately: Not Applicable Patient on Ventilator: No
--- NOTE | 2016-09-01 18:27 | Progress Note ---
Assessment and Plan Assessment and plan: 1. Abscess with cellulitis of the anterior abdominal wall right lower quadrant : Obtain a wound culture, blood culture, wound care, continue IV abx, fup with surgery, Dr delarosa for I&D today, fup intraop cultures 2. Sepsis: From anterior abdominal wall abscess. continue sepsis protocol, continue abx 3. Diabetes mellitus type 2: Continue insulins 4. Diabetic peripheral neuropathy: Continue with gabapentin. 5. Obstructive sleep apnea: continue CPAP QHS History Interval history: She continues to have right-sided abdominal pain, denies fevers or chills Hospitalist Physical - Physical exam Narrative exam: General: Patient appears well in no distress, obese HEENT: MMM, EOMI cardiac: S1-S2 heard lungs: clear to auscultation, abdomen: soft, nontender, nondistended bowel sounds positive Skin: There is induration, fluctuance, tenderness or warmth and erythema of the skin of the pannus on the right side extremities: no edema clubbing or cyanosis Neuro: no focal deficit Psych: appropriate behavior and mood, cognition intact - Constitutional Vitals: Temp Pulse Resp BP Pulse Ox 98 F 89 20 114/69 99 09/01/16 16:30 09/01/16 16:30 09/01/16 16:30 09/01/16 16:30 09/01/16 16:30 General appearance: Present: no acute distress, obese Results - Labs CBC & Chem 7: 09/02/16 06:46 09/02/16 06:46 Labs: Laboratory Last Values WBC 14.3 K/mm3 (4.5-11.0) H 09/01/16 05:32 RBC 3.66 M/mm3 (3.65-5.03) 09/01/16 05:32 Hgb 9.4 gm/dl (10.1-14.3) L 09/01/16 05:32 Hct 28.9 % (30.3-42.9) L 09/01/16 05:32 MCV 79 fl (79-97) 09/01/16 05:32 MCH 26 pg (28-32) L 09/01/16 05:32 MCHC 33 % (30-34) 09/01/16 05:32 RDW 15.1 % (13.2-15.2) 09/01/16 05:32 Plt Count 311 K/mm3 (140-440) 09/01/16 05:32 Lymph % (Auto) 11.0 % (13.4-35.0) L 09/01/16 05:32 [place] % (Auto) 10.4 % (0.0-7.3) H 09/01/16 05:32 Eos % (Auto) 0.7 % (0.0-4.3) 09/01/16 05:32 Baso % (Auto) 0.3 % (0.0-1.8) 09/01/16 05:32 Lymph # 1.6 K/mm3 (1.2-5.4) 09/01/16 05:32 [place] # 1.5 K/mm3 (0.0-0.8) H 09/01/16 05:32 Eos # 0.1 K/mm3 (0.0-0.4) 09/01/16 05:32 Baso # 0.0 K/mm3 (0.0-0.1) 09/01/16 05:32 Add Manual Diff Complete 08/31/16 05:50 Total Counted 100 08/31/16 05:50 Seg Neutrophils % 77.6 % (40.0-70.0) H 09/01/16 05:32 Seg Neuts % (Manual) 82.0 % (40.0-70.0) H 08/31/16 05:50 Band Neutrophils % 0 % 08/31/16 05:50 Lymphocytes % (Manual) 7.0 % (13.4-35.0) L 08/31/16 05:50 Reactive Lymphs % (Man) 0 % 08/31/16 05:50 Monocytes % (Manual) 11.0 % (0.0-7.3) H 08/31/16 05:50 Eosinophils % (Manual) 0 % (0.0-4.3) 08/31/16 05:50 Basophils % (Manual) 0 % (0.0-1.8) 08/31/16 05:50 Metamyelocytes % 0 % 08/31/16 05:50 Myelocytes % 0 % 08/31/16 05:50 Promyelocytes % 0 % 08/31/16 05:50 Blast Cells % 0 % 08/31/16 05:50 Nucleated RBC % Not Reportable 08/31/16 05:50 Seg Neutrophils # 11.1 K/mm3 (1.8-7.7) H 09/01/16 05:32 Seg Neutrophils # Man 12.4 K/mm3 (1.8-7.7) H 08/31/16 05:50 Band Neutrophils # 0.0 K/mm3 08/31/16 05:50 Lymphocytes # (Manual) 1.1 K/mm3 (1.2-5.4) L 08/31/16 05:50 Abs React Lymphs (Man) 0.0 K/mm3 08/31/16 05:50 Monocytes # (Manual) 1.7 K/mm3 (0.0-0.8) H 08/31/16 05:50 Eosinophils # (Manual) 0.0 K/mm3 (0.0-0.4) 08/31/16 05:50 Basophils # (Manual) 0.0 K/mm3 (0.0-0.1) 08/31/16 05:50 Metamyelocytes # 0.0 K/mm3 08/31/16 05:50 Myelocytes # 0.0 K/mm3 08/31/16 05:50 Promyelocytes # 0.0 K/mm3 08/31/16 05:50 Blast Cells # 0.0 K/mm3 08/31/16 05:50 WBC Morphology Not Reportable 08/31/16 05:50 Hypersegmented Neuts Not Reportable 08/31/16 05:50 Hyposegmented Neuts Not Reportable 08/31/16 05:50 Hypogranular Neuts Not Reportable 08/31/16 05:50 Smudge Cells Not Reportable 08/31/16 05:50 Toxic Granulation Not Reportable 08/31/16 05:50 Toxic Vacuolation Not Reportable 08/31/16 05:50 Dohle Bodies Not Reportable 08/31/16 05:50 Pelger-Huet Anomaly Not Reportable 08/31/16 05:50 Eddy Rods Not Reportable 08/31/16 05:50 Platelet Estimate Appears normal 08/31/16 05:50 Clumped Platelets Not Reportable 08/31/16 05:50 Plt Clumps, EDTA Not Reportable 08/31/16 05:50 Large Platelets Not Reportable 08/31/16 05:50 Giant Platelets Not Reportable 08/31/16 05:50 Platelet Satelliting Not Reportable 08/31/16 05:50 Plt Morphology Comment Not Reportable 08/31/16 05:50 RBC Morphology Not Reportable 08/31/16 05:50 Dimorphic RBCs Not Reportable 08/31/16 05:50 Polychromasia Not Reportable 08/31/16 05:50 Hypochromasia Not Reportable 08/31/16 05:50 Poikilocytosis Not Reportable 08/31/16 05:50 Anisocytosis 1+ 08/31/16 05:50 Microcytosis Not Reportable 08/31/16 05:50 Macrocytosis Not Reportable 08/31/16 05:50 Spherocytes Not Reportable 08/31/16 05:50 Pappenheimer Bodies Not Reportable 08/31/16 05:50 Sickle Cells Not Reportable 08/31/16 05:50 Target Cells Not Reportable 08/31/16 05:50 Tear Drop Cells Not Reportable 08/31/16 05:50 Ovalocytes Not Reportable 08/31/16 05:50 Helmet Cells Not Reportable 08/31/16 05:50 [place] Bodies Not Reportable 08/31/16 05:50 [place] Rings Not Reportable 08/31/16 05:50 Praveen Cells Not Reportable 08/31/16 05:50 Bite Cells Not Reportable 08/31/16 05:50 Crenated Cell Not Reportable 08/31/16 05:50 Elliptocytes Not Reportable 08/31/16 05:50 Acanthocytes (Spur) Not Reportable 08/31/16 05:50 Rouleaux Not Reportable 08/31/16 05:50 Hemoglobin C Crystals Not Reportable 08/31/16 05:50 Schistocytes Not Reportable 08/31/16 05:50 Malaria parasites Not Reportable 08/31/16 05:50 [place] Bodies Not Reportable 08/31/16 05:50 Hem Pathologist Commnt No 08/31/16 05:50 VBG pH 7.368 (7.320-7.420) 08/30/16 07:07 Sodium 134 mmol/L (137-145) L 08/31/16 05:50 Potassium 4.2 mmol/L (3.6-5.0) 08/31/16 05:50 Chloride 89.3 mmol/L (98-107) L 08/29/16 19:35 Carbon Dioxide 25 mmol/L (22-30) 09/01/16 05:32 Anion Gap 20 mmol/L 08/29/16 19:35 BUN 16 mg/dL (7-17) 09/01/16 05:32 Creatinine 1.0 mg/dL (0.7-1.2) 09/01/16 05:32 Estimated GFR > 60 ml/min 09/01/16 05:32 BUN/Creatinine Ratio 16.00 % 09/01/16 05:32 Glucose 151 mg/dL (65-100) H 09/01/16 05:32 POC Glucose 146 (70-105) H 09/01/16 17:15 Hemoglobin A1c 9.7 % (4-6) H 08/30/16 12:09 Lactic Acid 1.0 mmol/L (0.7-2.0) 08/31/16 12:40 Calcium 8.0 mg/dL (8.4-10.2) L 09/01/16 05:32 Phosphorus 2.7 mg/dL (2.5-4.5) 08/31/16 05:50 Magnesium 2.1 mg/dL (1.7-2.3) 08/31/16 05:50 Total Bilirubin 0.3 mg/dL (0.1-1.2) 09/01/16 05:32 AST 20 units/L (5-40) 09/01/16 05:32 ALT 15 units/L (7-56) 09/01/16 05:32 Alkaline Phosphatase 132 units/L (35-129) H 09/01/16 05:32 Total Protein 6.4 g/dL (6.3-8.2) 09/01/16 05:32 Albumin 2.1 g/dL (3.9-5) L 09/01/16 05:32 Albumin/Globulin Ratio 0.5 % 09/01/16 05:32 Triglycerides 126 mg/dL (2-149) 08/30/16 12:09 Cholesterol 106 mg/dL (50-199) 08/30/16 12:09 LDL Cholesterol Direct 74 mg/dL (50-130) 08/30/16 12:09 HDL Cholesterol 7 mg/dL (40-59) L 08/30/16 12:09 Cholesterol/HDL Ratio 15.14 % 08/30/16 12:09 Urine Color Yellow (Yellow) 08/29/16 Unknown Urine Turbidity Clear (Clear) 08/29/16 Unknown Urine pH 6.0 (5.0-7.0) 08/29/16 Unknown Ur Specific [place] 1.027 (1.003-1.030) 08/29/16 Unknown Urine Protein 100 mg/dl mg/dL (Negative) 08/29/16 Unknown Urine Glucose (UA) >=500 mg/dL (Negative) 08/29/16 Unknown Urine Ketones Neg mg/dL (Negative) 08/29/16 Unknown Urine Blood Mod (Negative) 08/29/16 Unknown Urine Nitrite Neg (Negative) 08/29/16 Unknown Urine Bilirubin Neg (Negative) 08/29/16 Unknown Urine Urobilinogen 4.0 mg/dL (<2.0) 08/29/16 Unknown Ur Leukocyte Esterase Neg (Negative) 08/29/16 Unknown Urine WBC (Auto) 3.0 /HPF (0.0-6.0) 08/29/16 Unknown Urine RBC (Auto) 7.0 /HPF (0.0-6.0) 08/29/16 Unknown U Epithel Cells (Auto) 2.0 /HPF (0-13.0) 08/29/16 Unknown Urine Bacteria (Auto) 1+ /HPF (Negative) 08/29/16 Unknown Urine Mucus Few /HPF 08/29/16 Unknown Urine HCG, Qual Negative (Negative) 08/30/16 Unknown Vancomycin Trough 20.5 ug/mL (5.0-20.0) H 08/31/16 05:50 Ketones mmol/L (-0.28) 08/30/16 07:07
--- NOTE | 2016-09-01 21:53 | Operative Report ---
PREOPERATIVE DIAGNOSES: 1. Large multiloculated abscess, right abdominal wall. 2. Diabetes mellitus. 3. Exogenous obesity. POSTOPERATIVE DIAGNOSES: 1. Large multiloculated abscess, right abdominal wall. 2. Diabetes mellitus. 3. Exogenous obesity. PROCEDURE: Wide excision with removal of multiloculated abscess, right abdominal wall with debridement and application of a wound VAC. ANESTHESIA: General. BLOOD LOSS: Minimal. FINDINGS: The patient had a fairly good size abscess on the abdominal wall in the subcutaneous tissue. It was multiloculated, at least about 4-5 loculations, each was about 3-4 cm. I was able to go all around them to a healthy-looking tissue, then I was able to apply a wound VAC in the usual fashion. DESCRIPTION OF PROCEDURE: With the patient in the supine position, I prepped and draped in the usual fashion. There was a sinus tract that was about 0.5 x 0.5 cm, this was seen to excrete or ooze a purulent material. Cultures were taken. Then, I was able to go around in the area of induration with a length of about 25 x [address] to a healthy-looking tissue. I had to carve more of the ____ necrotic tissue all the way down. I was well satisfied, had good hemostasis using electrocautery. Then, the wound VAC was applied in the usual fashion; it sucked about 2-3 mL. The patient was then transferred to the recovery room in good condition. JOB# [id number] MING/TEMITOPE
[2016-09-02] MEDS: DILAUDID IV PRN (02:22)
[2016-09-02] MEDS: VANCOMYCIN VIAL 1,500 MG in NACL 0.9% 500 ML 500 ML IV SCH (02:30)
[2016-09-02] MEDS: MORPHINE IV PRN ×3 (06:35→21:49)
[2016-09-02 07:19] LABS: Hematocrit 26.3 % (30.3-42.9); Hemoglobin 8.4 gm/dl (10.1-14.3); Mean Corpuscular HGB Conc 32 % (30-34); Mean Corpuscular Volume 80 fl (79-97); Platelet Count 324 K/mm3 (140-440); Red Blood Count 3.31 M/mm3 (3.65-5.03); Red Cell Distribution Width 15.1 % (13.2-15.2); White Blood Count 16.9 K/mm3 (4.5-11.0)
[2016-09-02 07:23] LABS: Mean Corpuscular Hemoglobin 25 pg (28-32)
[2016-09-02 07:27] LABS: Albumin 1.8 g/dL (3.9-5); Albumin/Globulin Ratio 0.4 %; BUN/Creatinine Ratio 13.07; Bilirubin,Total 0.4 mg/dL (0.1-1.2); Calcium 7.8 mg/dL (8.4-10.2); Chloride 98.4 mmol/L (98-107); Potassium 4.7 mmol/L (3.6-5.0); Total Protein 6.1 g/dL (6.3-8.2)
[2016-09-02] MEDS: NOVOLOG SUB-Q SCH ×4 (09:10→22:05)
[2016-09-02 09:15] LABS: Basophils % (Manual) 0 % (0.0-1.8); Blastocytes % (Manual) 0 %; Diff Status Complete; Hypochromasia 1+; Platelet Estimate Consistent w Auto
[2016-09-02] MEDS: HEPARIN SUB-Q SCH ×2 (09:24→21:51)
[2016-09-02] MEDS: ASPIRIN PO SCH (09:24)
[2016-09-02] MEDS: LEVAQUIN 750MG/150ML 750 MG/150 ML BAG IV SCH (13:25)
[2016-09-02] MEDS ORDERED: VANCOMYCIN VIAL 1,250 MG in NACL 0.9% 250ML 250 ML IV SCH (14:00)
--- NOTE | 2016-09-02 14:51 | Progress Note ---
Subjective Patient Reports: Positive: feels better, still having pain, flatus Narrative: doing fine wound clean ,Pt is hungry , will up PO , will ambulate , Objective Vital Signs - 12hr 09/02/16 04:51 Temperature 98.9 F Pulse Rate [ 95 H Right Radial] Respiratory 18 Rate Blood Pressure 121/73 [Right Arm] O2 Sat by Pulse 97 Oximetry - Labs 09/02/16 06:46 09/02/16 06:46 Diabetes panel 09/02/16 Range/Units 06:46 Sodium 133 L (137-145) mmol/L Potassium 4.7 (3.6-5.0) mmol/L Chloride 98.4 (98-107) mmol/L Carbon Dioxide 24 (22-30) mmol/L BUN 17 (7-17) mg/dL Creatinine 1.3 H (0.7-1.2) mg/dL Glucose 132 H (65-100) mg/dL Calcium 7.8 L (8.4-10.2) mg/dL AST 26 (5-40) units/L ALT 15 (7-56) units/L Alkaline Phosphatase 135 H (35-129) units/L Total Protein 6.1 L (6.3-8.2) g/dL Albumin 1.8 L (3.9-5) g/dL Calcium panel 09/02/16 Range/Units 06:46 Calcium 7.8 L (8.4-10.2) mg/dL Albumin 1.8 L (3.9-5) g/dL Pituitary panel 09/02/16 Range/Units 06:46 Sodium 133 L (137-145) mmol/L Potassium 4.7 (3.6-5.0) mmol/L Chloride 98.4 (98-107) mmol/L Carbon Dioxide 24 (22-30) mmol/L BUN 17 (7-17) mg/dL Creatinine 1.3 H (0.7-1.2) mg/dL Glucose 132 H (65-100) mg/dL Calcium 7.8 L (8.4-10.2) mg/dL Adrenal panel 09/02/16 Range/Units 06:46 Sodium 133 L (137-145) mmol/L Potassium 4.7 (3.6-5.0) mmol/L Chloride 98.4 (98-107) mmol/L Carbon Dioxide 24 (22-30) mmol/L BUN 17 (7-17) mg/dL Creatinine 1.3 H (0.7-1.2) mg/dL Glucose 132 H (65-100) mg/dL Calcium 7.8 L (8.4-10.2) mg/dL Total Bilirubin 0.4 (0.1-1.2) mg/dL AST 26 (5-40) units/L ALT 15 (7-56) units/L Alkaline Phosphatase 135 H (35-129) units/L Total Protein 6.1 L (6.3-8.2) g/dL Albumin 1.8 L (3.9-5) g/dL
--- NOTE | 2016-09-02 17:03 | Progress Note ---
Assessment and Plan Assessment and plan: 1. Abscess with cellulitis of the anterior abdominal wall right lower quadrant : S/P I&D on 09/01, with placement of wound vac, fup intraop cultures, ID consultation 2. Sepsis: From anterior abdominal wall abscess. continue sepsis protocol, continue abx 3. Diabetes mellitus type 2: Continue insulins 4. Diabetic peripheral neuropathy: Continue with gabapentin. 5. Obstructive sleep apnea: continue CPAP QHS History Interval history: Pain on the right abdomen has improved, since she had I&D, she has on wound VAC and feels a lot more improved Hospitalist Physical - Physical exam Narrative exam: General: Patient appears well in no distress, obese HEENT: MMM, EOMI cardiac: S1-S2 heard lungs: clear to auscultation, abdomen: soft, nontender, nondistended bowel sounds positive Skin: Wound VAC is seen over the right pannus, there isn't a big open wound which has wound vac over it, has surrounding induration, interval decrease in warmth and tenderness extremities: no edema clubbing or cyanosis Neuro: no focal deficit Psych: appropriate behavior and mood, cognition intact - Constitutional Vitals: Temp Pulse Resp BP Pulse Ox 98.9 F 95 H 18 121/73 97 09/02/16 04:51 09/02/16 04:51 09/02/16 04:51 09/02/16 04:51 09/02/16 04:51 General appearance: Present: no acute distress, obese Results - Labs CBC & Chem 7: 09/02/16 06:46 09/02/16 06:46 Labs: Laboratory Last Values WBC 16.9 K/mm3 (4.5-11.0) H 09/02/16 06:46 RBC 3.31 M/mm3 (3.65-5.03) L 09/02/16 06:46 Hgb 8.4 gm/dl (10.1-14.3) L 09/02/16 06:46 Hct 26.3 % (30.3-42.9) L 09/02/16 06:46 MCV 80 fl (79-97) 09/02/16 06:46 MCH 25 pg (28-32) L 09/02/16 06:46 MCHC 32 % (30-34) 09/02/16 06:46 RDW 15.1 % (13.2-15.2) 09/02/16 06:46 Plt Count 324 K/mm3 (140-440) 09/02/16 06:46 Lymph % (Auto) Utility Sales And Service Manager 09/02/16 06:46 [place] % (Auto) Utility Sales And Service Manager 09/02/16 06:46 Eos % (Auto) Utility Sales And Service Manager 09/02/16 06:46 Baso % (Auto) Utility Sales And Service Manager 09/02/16 06:46 Lymph # Utility Sales And Service Manager 09/02/16 06:46 [place] # Utility Sales And Service Manager 09/02/16 06:46 Eos # Utility Sales And Service Manager 09/02/16 06:46 Baso # Utility Sales And Service Manager 09/02/16 06:46 Add Manual Diff Complete 09/02/16 06:46 Total Counted 100 09/02/16 06:46 Seg Neutrophils % Utility Sales And Service Manager 09/02/16 06:46 Seg Neuts % (Manual) 82.0 % (40.0-70.0) H 09/02/16 06:46 Band Neutrophils % 1.0 % 09/02/16 06:46 Lymphocytes % (Manual) 7.0 % (13.4-35.0) L 09/02/16 06:46 Reactive Lymphs % (Man) 0 % 09/02/16 06:46 Monocytes % (Manual) 8.0 % (0.0-7.3) H 09/02/16 06:46 Eosinophils % (Manual) 1.0 % (0.0-4.3) 09/02/16 06:46 Basophils % (Manual) 0 % (0.0-1.8) 09/02/16 06:46 Metamyelocytes % 0 % 09/02/16 06:46 Myelocytes % 1.0 % 09/02/16 06:46 Promyelocytes % 0 % 09/02/16 06:46 Blast Cells % 0 % 09/02/16 06:46 Nucleated RBC % Not Reportable 09/02/16 06:46 Seg Neutrophils # Utility Sales And Service Manager 09/02/16 06:46 Seg Neutrophils # Man 13.9 K/mm3 (1.8-7.7) H 09/02/16 06:46 Band Neutrophils # 0.2 K/mm3 09/02/16 06:46 Lymphocytes # (Manual) 1.2 K/mm3 (1.2-5.4) 09/02/16 06:46 Abs React Lymphs (Man) 0.0 K/mm3 09/02/16 06:46 Monocytes # (Manual) 1.4 K/mm3 (0.0-0.8) H 09/02/16 06:46 Eosinophils # (Manual) 0.2 K/mm3 (0.0-0.4) 09/02/16 06:46 Basophils # (Manual) 0.0 K/mm3 (0.0-0.1) 09/02/16 06:46 Metamyelocytes # 0.0 K/mm3 09/02/16 06:46 Myelocytes # 0.2 K/mm3 09/02/16 06:46 Promyelocytes # 0.0 K/mm3 09/02/16 06:46 Blast Cells # 0.0 K/mm3 09/02/16 06:46 WBC Morphology Not Reportable 09/02/16 06:46 Hypersegmented Neuts Not Reportable 09/02/16 06:46 Hyposegmented Neuts Not Reportable 09/02/16 06:46 Hypogranular Neuts Not Reportable 09/02/16 06:46 Smudge Cells Not Reportable 09/02/16 06:46 Toxic Granulation Not Reportable 09/02/16 06:46 Toxic Vacuolation Not Reportable 09/02/16 06:46 Dohle Bodies Not Reportable 09/02/16 06:46 Pelger-Huet Anomaly Not Reportable 09/02/16 06:46 Eddy Rods Not Reportable 09/02/16 06:46 Platelet Estimate Consistent w auto 09/02/16 06:46 Clumped Platelets Not Reportable 09/02/16 06:46 Plt Clumps, EDTA Not Reportable 09/02/16 06:46 Large Platelets Not Reportable 09/02/16 06:46 Giant Platelets Not Reportable 09/02/16 06:46 Platelet Satelliting Not Reportable 09/02/16 06:46 Plt Morphology Comment Not Reportable 09/02/16 06:46 RBC Morphology Not Reportable 09/02/16 06:46 Dimorphic RBCs Not Reportable 09/02/16 06:46 Polychromasia Not Reportable 09/02/16 06:46 Hypochromasia 1+ 09/02/16 06:46 Poikilocytosis Not Reportable 09/02/16 06:46 Anisocytosis Not Reportable 09/02/16 06:46 Microcytosis Not Reportable 09/02/16 06:46 Macrocytosis Not Reportable 09/02/16 06:46 Spherocytes Not Reportable 09/02/16 06:46 Pappenheimer Bodies Not Reportable 09/02/16 06:46 Sickle Cells Not Reportable 09/02/16 06:46 Target Cells Not Reportable 09/02/16 06:46 Tear Drop Cells Not Reportable 09/02/16 06:46 Ovalocytes Not Reportable 09/02/16 06:46 Helmet Cells Not Reportable 09/02/16 06:46 [place] Bodies Not Reportable 09/02/16 06:46 [place] Rings Not Reportable 09/02/16 06:46 [place] Cells Not Reportable 09/02/16 06:46 Bite Cells Not Reportable 09/02/16 06:46 Crenated Cell Not Reportable 09/02/16 06:46 Elliptocytes Not Reportable 09/02/16 06:46 Acanthocytes (Spur) Not Reportable 09/02/16 06:46 Rouleaux Not Reportable 09/02/16 06:46 Hemoglobin C Crystals Not Reportable 09/02/16 06:46 Schistocytes Not Reportable 09/02/16 06:46 Malaria parasites Not Reportable 09/02/16 06:46 [place] Bodies Not Reportable 09/02/16 06:46 Hem Pathologist Commnt No 09/02/16 06:46 VBG pH 7.368 (7.320-7.420) 08/30/16 07:07 Sodium 133 mmol/L (137-145) L 09/02/16 06:46 Potassium 4.7 mmol/L (3.6-5.0) 09/02/16 06:46 Chloride 98.4 mmol/L (98-107) 09/02/16 06:46 Carbon Dioxide 24 mmol/L (22-30) 09/02/16 06:46 Anion Gap 15 mmol/L 09/02/16 06:46 BUN 17 mg/dL (7-17) 09/02/16 06:46 Creatinine 1.3 mg/dL (0.7-1.2) H 09/02/16 06:46 Estimated GFR 55 ml/min 09/02/16 06:46 BUN/Creatinine Ratio 13.07 % 09/02/16 06:46 Glucose 132 mg/dL (65-100) H 09/02/16 06:46 POC Glucose 160 (70-105) H 09/02/16 12:17 Hemoglobin A1c 9.7 % (4-6) H 08/30/16 12:09 Lactic Acid 0.9 mmol/L (0.7-2.0) 09/02/16 10:49 Calcium 7.8 mg/dL (8.4-10.2) L 09/02/16 06:46 Phosphorus 2.7 mg/dL (2.5-4.5) 08/31/16 05:50 Magnesium 2.1 mg/dL (1.7-2.3) 08/31/16 05:50 Total Bilirubin 0.4 mg/dL (0.1-1.2) 09/02/16 06:46 AST 26 units/L (5-40) 09/02/16 06:46 ALT 15 units/L (7-56) 09/02/16 06:46 Alkaline Phosphatase 135 units/L (35-129) H 09/02/16 06:46 Total Protein 6.1 g/dL (6.3-8.2) L 09/02/16 06:46 Albumin 1.8 g/dL (3.9-5) L 09/02/16 06:46 Albumin/Globulin Ratio 0.4 % 09/02/16 06:46 Triglycerides 126 mg/dL (2-149) 08/30/16 12:09 Cholesterol 106 mg/dL (50-199) 08/30/16 12:09 LDL Cholesterol Direct 74 mg/dL (50-130) 08/30/16 12:09 HDL Cholesterol 7 mg/dL (40-59) L 08/30/16 12:09 Cholesterol/HDL Ratio 15.14 % 08/30/16 12:09 Urine Color Yellow (Yellow) 08/29/16 Unknown Urine Turbidity Clear (Clear) 08/29/16 Unknown Urine pH 6.0 (5.0-7.0) 08/29/16 Unknown Ur Specific [place] 1.027 (1.003-1.030) 08/29/16 Unknown Urine Protein 100 mg/dl mg/dL (Negative) 08/29/16 Unknown Urine Glucose (UA) >=500 mg/dL (Negative) 08/29/16 Unknown Urine Ketones Neg mg/dL (Negative) 08/29/16 Unknown Urine Blood Mod (Negative) 08/29/16 Unknown Urine Nitrite Neg (Negative) 08/29/16 Unknown Urine Bilirubin Neg (Negative) 08/29/16 Unknown Urine Urobilinogen 4.0 mg/dL (<2.0) 08/29/16 Unknown Ur Leukocyte Esterase Neg (Negative) 08/29/16 Unknown Urine WBC (Auto) 3.0 /HPF (0.0-6.0) 08/29/16 Unknown Urine RBC (Auto) 7.0 /HPF (0.0-6.0) 08/29/16 Unknown U Epithel Cells (Auto) 2.0 /HPF (0-13.0) 08/29/16 Unknown Urine Bacteria (Auto) 1+ /HPF (Negative) 08/29/16 Unknown Urine Mucus Few /HPF 08/29/16 Unknown Urine HCG, Qual Negative (Negative) 08/30/16 Unknown Vancomycin Trough 20.5 ug/mL (5.0-20.0) H 08/31/16 05:50 Ketones mmol/L (-0.28) 08/30/16 07:07
[2016-09-02 17:40] LABS: BUN/Creatinine Ratio 12.66; Calcium 7.9 mg/dL (8.4-10.2); Chloride 98.6 mmol/L (98-107); Potassium 4.5 mmol/L (3.6-5.0)
[2016-09-02] MEDS: LEVEMIR SUB-Q SCH (21:51)
[2016-09-02] MEDS: VANCOMYCIN VIAL 1,250 MG in NACL 0.9% 250ML 250 ML IV SCH (21:51)
[2016-09-03] MEDS: VANCOMYCIN VIAL 1,250 MG in NACL 0.9% 250ML 250 ML IV SCH ×3 (05:00→23:00)
[2016-09-03] MEDS: MORPHINE IV PRN ×3 (06:31→18:50)
[2016-09-03] MEDS: NOVOLOG SUB-Q SCH ×4 (08:00→23:02)
[2016-09-03] MEDS: HEPARIN SUB-Q SCH ×2 (10:05→23:01)
[2016-09-03] MEDS: ASPIRIN PO SCH (10:05)
--- NOTE | 2016-09-03 10:22 | Progress Note ---
Assessment and Plan Assessment and plan: Abscess with cellulitis of the anterior abdominal wall right lower quadrant: * S/P I&D on 09/01, with placement of wound vac, * wound culture growing gram-negative rods * Continue antibiotics and follow ID recommendation Sepsis: * From anterior abdominal wall abscess. * continue sepsis protocol, continue abx Diabetes mellitus type 2: * Continue insulins Diabetic peripheral neuropathy: * Continue with gabapentin. Obstructive sleep apnea: * continue CPAP QHS Microbiology 08/30/16 07:07 Peripheral/Venous Blood Culture - Preliminary NO GROWTH AFTER 4 DAYS 08/30/16 07:07 Peripheral/Venous Blood Culture - Preliminary NO GROWTH AFTER 4 DAYS 09/01/16 14:53 Abdomen Anaerobic Culture - Preliminary 09/01/16 14:53 Abdomen Surgical Culture - Preliminary History Interval history: Patient seen and examined. Medical records and medication list reviewed. No acute event overnight noted by the RN. Patient c/o abdominal discomfort Discussed plan of care at bedside with patient. Hospitalist Physical - Physical exam Narrative exam: General: Patient appears well in no distress, obese HEENT: MMM, EOMI cardiac: S1-S2 heard lungs: clear to auscultation, abdomen: soft, nontender, nondistended bowel sounds positive Skin: Wound VAC is seen over the right pannus, there isn't a big open wound which has wound vac over it, has surrounding induration, interval decrease in warmth and tenderness extremities: no edema clubbing or cyanosis Neuro: no focal deficit Psych: appropriate behavior and mood, cognition intact - Constitutional Vitals: Temp Pulse Resp BP Pulse Ox 98.4 F 94 H 20 145/67 95 09/02/16 23:00 09/02/16 23:00 09/03/16 07:01 09/02/16 23:00 09/02/16 23:00 General appearance: Present: no acute distress, obese Results - Labs CBC & Chem 7: 09/02/16 06:46 09/02/16 16:57 Labs: Laboratory Last Values WBC 16.9 K/mm3 (4.5-11.0) H 09/02/16 06:46 RBC 3.31 M/mm3 (3.65-5.03) L 09/02/16 06:46 Hgb 8.4 gm/dl (10.1-14.3) L 09/02/16 06:46 Hct 26.3 % (30.3-42.9) L 09/02/16 06:46 MCV 80 fl (79-97) 09/02/16 06:46 MCH 25 pg (28-32) L 09/02/16 06:46 MCHC 32 % (30-34) 09/02/16 06:46 RDW 15.1 % (13.2-15.2) 09/02/16 06:46 Plt Count 324 K/mm3 (140-440) 09/02/16 06:46 Lymph % (Auto) Valve Grinder 09/02/16 06:46 [place] % (Auto) Valve Grinder 09/02/16 06:46 Eos % (Auto) Valve Grinder 09/02/16 06:46 Baso % (Auto) Valve Grinder 09/02/16 06:46 Lymph # Valve Grinder 09/02/16 06:46 [place] # Valve Grinder 09/02/16 06:46 Eos # Valve Grinder 09/02/16 06:46 Baso # Valve Grinder 09/02/16 06:46 Add Manual Diff Complete 09/02/16 06:46 Total Counted 100 09/02/16 06:46 Seg Neutrophils % Valve Grinder 09/02/16 06:46 Seg Neuts % (Manual) 82.0 % (40.0-70.0) H 09/02/16 06:46 Band Neutrophils % 1.0 % 09/02/16 06:46 Lymphocytes % (Manual) 7.0 % (13.4-35.0) L 09/02/16 06:46 Reactive Lymphs % (Man) 0 % 09/02/16 06:46 Monocytes % (Manual) 8.0 % (0.0-7.3) H 09/02/16 06:46 Eosinophils % (Manual) 1.0 % (0.0-4.3) 09/02/16 06:46 Basophils % (Manual) 0 % (0.0-1.8) 09/02/16 06:46 Metamyelocytes % 0 % 09/02/16 06:46 Myelocytes % 1.0 % 09/02/16 06:46 Promyelocytes % 0 % 09/02/16 06:46 Blast Cells % 0 % 09/02/16 06:46 Nucleated RBC % Not Reportable 09/02/16 06:46 Seg Neutrophils # Valve Grinder 09/02/16 06:46 Seg Neutrophils # Man 13.9 K/mm3 (1.8-7.7) H 09/02/16 06:46 Band Neutrophils # 0.2 K/mm3 09/02/16 06:46 Lymphocytes # (Manual) 1.2 K/mm3 (1.2-5.4) 09/02/16 06:46 Abs React Lymphs (Man) 0.0 K/mm3 09/02/16 06:46 Monocytes # (Manual) 1.4 K/mm3 (0.0-0.8) H 09/02/16 06:46 Eosinophils # (Manual) 0.2 K/mm3 (0.0-0.4) 09/02/16 06:46 Basophils # (Manual) 0.0 K/mm3 (0.0-0.1) 09/02/16 06:46 Metamyelocytes # 0.0 K/mm3 09/02/16 06:46 Myelocytes # 0.2 K/mm3 09/02/16 06:46 Promyelocytes # 0.0 K/mm3 09/02/16 06:46 Blast Cells # 0.0 K/mm3 09/02/16 06:46 WBC Morphology Not Reportable 09/02/16 06:46 Hypersegmented Neuts Not Reportable 09/02/16 06:46 Hyposegmented Neuts Not Reportable 09/02/16 06:46 Hypogranular Neuts Not Reportable 09/02/16 06:46 Smudge Cells Not Reportable 09/02/16 06:46 Toxic Granulation Not Reportable 09/02/16 06:46 Toxic Vacuolation Not Reportable 09/02/16 06:46 Dohle Bodies Not Reportable 09/02/16 06:46 Pelger-Huet Anomaly Not Reportable 09/02/16 06:46 Eddy Rods Not Reportable 09/02/16 06:46 Platelet Estimate Consistent w auto 09/02/16 06:46 Clumped Platelets Not Reportable 09/02/16 06:46 Plt Clumps, EDTA Not Reportable 09/02/16 06:46 Large Platelets Not Reportable 09/02/16 06:46 Giant Platelets Not Reportable 09/02/16 06:46 Platelet Satelliting Not Reportable 09/02/16 06:46 Plt Morphology Comment Not Reportable 09/02/16 06:46 RBC Morphology Not Reportable 09/02/16 06:46 Dimorphic RBCs Not Reportable 09/02/16 06:46 Polychromasia Not Reportable 09/02/16 06:46 Hypochromasia 1+ 09/02/16 06:46 Poikilocytosis Not Reportable 09/02/16 06:46 Anisocytosis Not Reportable 09/02/16 06:46 Microcytosis Not Reportable 09/02/16 06:46 Macrocytosis Not Reportable 09/02/16 06:46 Spherocytes Not Reportable 09/02/16 06:46 Pappenheimer Bodies Not Reportable 09/02/16 06:46 Sickle Cells Not Reportable 09/02/16 06:46 Target Cells Not Reportable 09/02/16 06:46 Tear Drop Cells Not Reportable 09/02/16 06:46 Ovalocytes Not Reportable 09/02/16 06:46 Helmet Cells Not Reportable 09/02/16 06:46 [place] Bodies Not Reportable 09/02/16 06:46 [place] Rings Not Reportable 09/02/16 06:46 [place] Cells Not Reportable 09/02/16 06:46 Bite Cells Not Reportable 09/02/16 06:46 Crenated Cell Not Reportable 09/02/16 06:46 Elliptocytes Not Reportable 09/02/16 06:46 Acanthocytes (Spur) Not Reportable 09/02/16 06:46 Rouleaux Not Reportable 09/02/16 06:46 Hemoglobin C Crystals Not Reportable 09/02/16 06:46 Schistocytes Not Reportable 09/02/16 06:46 Malaria parasites Not Reportable 09/02/16 06:46 [place] Bodies Not Reportable 09/02/16 06:46 Hem Pathologist Commnt No 09/02/16 06:46 VBG pH 7.368 (7.320-7.420) 08/30/16 07:07 Sodium 134 mmol/L (137-145) L 09/02/16 16:57 Potassium 4.5 mmol/L (3.6-5.0) 09/02/16 16:57 Chloride 98.6 mmol/L (98-107) 09/02/16 16:57 Carbon Dioxide 22 mmol/L (22-30) 09/02/16 16:57 Anion Gap 18 mmol/L 09/02/16 16:57 BUN 19 mg/dL (7-17) H 09/02/16 16:57 Creatinine 1.5 mg/dL (0.7-1.2) H 09/02/16 16:57 Estimated GFR 46 ml/min 09/02/16 16:57 BUN/Creatinine Ratio 12.66 % 09/02/16 16:57 Glucose 148 mg/dL (65-100) H 09/02/16 16:57 POC Glucose 121 (70-105) H 09/03/16 05:54 Hemoglobin A1c 9.7 % (4-6) H 08/30/16 12:09 Lactic Acid 0.9 mmol/L (0.7-2.0) 09/02/16 10:49 Calcium 7.9 mg/dL (8.4-10.2) L 09/02/16 16:57 Phosphorus 2.7 mg/dL (2.5-4.5) 08/31/16 05:50 Magnesium 2.1 mg/dL (1.7-2.3) 08/31/16 05:50 Total Bilirubin 0.4 mg/dL (0.1-1.2) 09/02/16 06:46 AST 26 units/L (5-40) 09/02/16 06:46 ALT 15 units/L (7-56) 09/02/16 06:46 Alkaline Phosphatase 135 units/L (35-129) H 09/02/16 06:46 Total Protein 6.1 g/dL (6.3-8.2) L 09/02/16 06:46 Albumin 1.8 g/dL (3.9-5) L 09/02/16 06:46 Albumin/Globulin Ratio 0.4 % 09/02/16 06:46 Triglycerides 126 mg/dL (2-149) 08/30/16 12:09 Cholesterol 106 mg/dL (50-199) 08/30/16 12:09 LDL Cholesterol Direct 74 mg/dL (50-130) 08/30/16 12:09 HDL Cholesterol 7 mg/dL (40-59) L 08/30/16 12:09 Cholesterol/HDL Ratio 15.14 % 08/30/16 12:09 Urine Color Yellow (Yellow) 08/29/16 Unknown Urine Turbidity Clear (Clear) 08/29/16 Unknown Urine pH 6.0 (5.0-7.0) 08/29/16 Unknown Ur Specific [place] 1.027 (1.003-1.030) 08/29/16 Unknown Urine Protein 100 mg/dl mg/dL (Negative) 08/29/16 Unknown Urine Glucose (UA) >=500 mg/dL (Negative) 08/29/16 Unknown Urine Ketones Neg mg/dL (Negative) 08/29/16 Unknown Urine Blood Mod (Negative) 08/29/16 Unknown Urine Nitrite Neg (Negative) 08/29/16 Unknown Urine Bilirubin Neg (Negative) 08/29/16 Unknown Urine Urobilinogen 4.0 mg/dL (<2.0) 08/29/16 Unknown Ur Leukocyte Esterase Neg (Negative) 08/29/16 Unknown Urine WBC (Auto) 3.0 /HPF (0.0-6.0) 08/29/16 Unknown Urine RBC (Auto) 7.0 /HPF (0.0-6.0) 08/29/16 Unknown U Epithel Cells (Auto) 2.0 /HPF (0-13.0) 08/29/16 Unknown Urine Bacteria (Auto) 1+ /HPF (Negative) 08/29/16 Unknown Urine Mucus Few /HPF 08/29/16 Unknown Urine HCG, Qual Negative (Negative) 08/30/16 Unknown Vancomycin Trough 20.5 ug/mL (5.0-20.0) H 08/31/16 05:50 Ketones mmol/L (-0.28) 08/30/16 07:07
[2016-09-03] MEDS: LEVAQUIN 750MG/150ML 750 MG/150 ML BAG IV SCH (13:49)
[2016-09-03] MEDS: NEURONTIN PO PRN ×2 (15:00→19:00)
[2016-09-03] MEDS: LEVEMIR SUB-Q SCH (23:02)
[2016-09-04] MEDS: MORPHINE IV PRN (04:08)
[2016-09-04] MEDS: VANCOMYCIN VIAL 1,250 MG in NACL 0.9% 250ML 250 ML IV SCH (04:10)
[2016-09-04 06:58] LABS: Hematocrit 24.8 % (30.3-42.9); Mean Corpuscular HGB Conc 32 % (30-34); Mean Corpuscular Volume 81 fl (79-97); Platelet Count 448 K/mm3 (140-440); Red Blood Count 3.09 M/mm3 (3.65-5.03); Red Cell Distribution Width 15.8 % (13.2-15.2); White Blood Count 16.6 K/mm3 (4.5-11.0)
[2016-09-04 06:59] LABS: Mean Corpuscular Hemoglobin 26 pg (28-32)
[2016-09-04] MEDS ORDERED: ZOFRAN IV PRN (09:09)
[2016-09-04] MEDS ORDERED: DILAUDID IV PRN (09:09)
--- NOTE | 2016-09-04 09:09 | Anesthesia Consultation ---
Anesthesia Consult and Med Hx Date of service: 09/04/16 - Airway Anesthetic Teeth Evaluation: Good ROM Head & Neck: Adequate Mental/Hyoid Distance: Adequate Mallampati Class: Class II Intubation Access Assessment: Probably Good - Pulmonary Exam CTA: Yes - Cardiac Exam Cardiac Exam: RRR - Pre-Operative Health Status ASA Pre-Surgery Classification: ASA3 Proposed Anesthetic Plan: General - Pulmonary Hx Smoking: No Hx Asthma: Yes (MILD) Hx Respiratory Symptoms: No COPD: No Hx Pneumonia: No Hx Sleep Apnea: No - Cardiovascular System Hx Hypertension: Yes Hx Coronary Artery Disease: No - Central Nervous System Hx Seizures: No CVA: No Hx Psychiatric Problems: No - Gastrointestinal Hx Gastroesophageal Reflux Disease: No - Endocrine Hx Renal Disease: No Hx End Stage Renal Disease: No Hx Insulin Dependent Diabetes: Yes (since 2001) - Hematic Hx Anemia: Yes Hx Sickle Cell Disease: No - Other Systems Hx Alcohol Use: No Hx Substance Use: No Hx Cancer: No Hx Obesity: Yes (BMI > 40, morbid obesity)
[2016-09-04] MEDS ORDERED: PEPCID PO NR (10:00)
[2016-09-04] MEDS ORDERED: VERSED IV NR (10:00)
[2016-09-04] MEDS ORDERED: NACL 0.9% 1000 ML 1,000 ML IV SCH (10:00)
[2016-09-04 10:53] LABS: Basophils % (Manual) 0 % (0.0-1.8); Blastocytes % (Manual) 0 %
[2016-09-04 10:54] LABS: Diff Status Complete; Hypochromasia Few
[2016-09-04] MEDS: HEPARIN SUB-Q SCH ×2 (11:01→22:20)
[2016-09-04] MEDS: ASPIRIN PO SCH (11:01)
[2016-09-04] MEDS: NOVOLOG SUB-Q SCH ×3 (11:01→23:06)
[2016-09-04] MEDS ORDERED: NACL 0.9% 1000 ML 1,000 ML ONE ×2 (11:30→14:20)
[2016-09-04] MEDS ORDERED: DIPRIVAN 10 MG/ML IV ONE (11:31)
[2016-09-04] MEDS ORDERED: SUBLIMAZE ONE (11:31)
[2016-09-04] MEDS ORDERED: XYLOCAINE MPF 2% ONE (11:32)
[2016-09-04] MEDS ORDERED: ZEMURON IV ONE (11:32)
--- NOTE | 2016-09-04 11:41 | Anesthesia Day of Surgery ---
Anesthesia Day of Surgery - Day of Surgery Patient Examined: Yes Patient H&P Reviewed: Yes Patient is NPO: Yes
[2016-09-04] MEDS ORDERED: PROAIR IH ONE (13:14)
[2016-09-04] MEDS ORDERED: NACL 0.9% IR ONE (13:50)
[2016-09-04] MEDS ORDERED: ROBINUL ONE (14:14)
[2016-09-04] MEDS ORDERED: NEOSTIGMINE ONE (14:14)
[2016-09-04] MEDS ORDERED: DECADRON ONE (14:15)
[2016-09-04] MEDS ORDERED: ZOFRAN ONE (14:15)
[2016-09-04] MEDS ORDERED: DILAUDID ONE ×2 (14:19→15:09)
[2016-09-04] MEDS: DILAUDID IV PRN ×2 (15:10→15:20)
--- NOTE | 2016-09-04 18:51 | Consultation ---
History of Present Illness - Reason for Consult Consult date: 09/04/16 sepsis Requesting physician: ADELINE CAMACHO - History of Present Illness Patient is a 41-year-old lady was a history of diabetes mellitus, was in the process of moving to [place] 2 weeks ago. On the left her that she discovered that she had redness with abscess in the right lower quadrants of the anterior abdominal wall. She doctor who started her on 2 antibiotics. She's been unable to eat because of her symptoms. Has fever and chills. Denies any nausea vomiting. Has polyuria polydipsia and polyphagia. She was admitted and I and D done. Patient continues to have fever and leukocytosis hence infectious disease consult. Past History Past Medical History: diabetes (with diabetic peripheral neuropathy, asthma, obesity), hypertension, hyperlipidemia LABS - Reviewed. See lab section ASSESSMENT 1. Sepsis 2. Abdominal wall abscess s/p debridement. 4. DM2 4. Obesity RECOMMENDATION 1. D/C LEVAQUIN AND START ZOSYN. 2. CONTINUE VANCOMYCIN. Adjust dosing per renal function 3. cbc/bmp in am 4. Continue wound care. Past History Past Medical History: diabetes (with diabetic peripheral neuropathy, asthma, obesity), hypertension, hyperlipidemia Medications and Allergies Allergies Allergy/AdvReac Type Severity Reaction Status Date / Time No Known Allergies Allergy Verified 05/02/15 15:33 Home Medications Medication Instructions Recorded Confirmed Last Taken Type Gabapentin [Gabapentin] 300 mg PO TID PRN 07/02/15 08/30/16 08/29/16 History Insulin Regular, Human [HumuLIN R] 40 unit SQ BS PRN 07/02/15 08/30/16 08/29/16 History Clindamycin [Clindamycin CAP] 300 mg PO Q6H 08/30/16 08/30/16 08/29/16 History Active Meds: Active Medications Aspirin (Aspirin) 325 mg PO QDAY ARJAN Last Admin: 09/04/16 11:01 Dose: Not Given Dextrose (D50w (25gm)) 50 ml IV PRN PRN PRN Reason: Hypoglycemia Famotidine (Pepcid) 20 mg PO PREOP NR Stop: 09/04/16 23:59 Last Admin: 09/04/16 12:05 Dose: 20 mg Gabapentin (Neurontin) 300 mg PO TID PRN PRN Reason: Pain Last Admin: 09/03/16 19:00 Dose: 300 mg Heparin Sodium (Porcine) (Heparin) 5,000 unit SUB-Q Q12HR [facility] Last Admin: 09/04/16 11:01 Dose: Not Given Hydromorphone HCl (Dilaudid) 0.5 mg IV Q10MIN PRN PRN Reason: Pain , Severe (7-10) Stop: 09/04/16 23:59 Last Admin: 09/04/16 16:40 Dose: 0.5 mg Levofloxacin/Dextrose (Levaquin 750mg/150ml) 750 mg in 150 mls @ 100 mls/hr IV Q24H [facility] PRN Reason: Protocol Last Admin: 09/03/16 13:49 Dose: 100 mls/hr Vancomycin HCl (Vancomycin/Ns 1 Gm/250 Ml) 1 gm in 250 mls @ 166.667 mls/hr IV Q8HR [facility] Sodium Chloride (Nacl 0.9% 1000 Ml) 1,000 mls @ 75 mls/hr IV DIRECT [facility] Last Admin: 09/04/16 12:05 Dose: 75 mls/hr Insulin Aspart (Novolog) 0 units SUB-Q ACHS [facility] PRN Reason: Protocol Last Admin: 09/04/16 18:12 Dose: Not Given Insulin Detemir (Levemir) 20 units SUB-Q QHS [facility] Last Admin: 09/03/16 23:02 Dose: 20 units Midazolam HCl (Versed) 2 mg IV PREOP NR Stop: 09/04/16 23:59 Morphine Sulfate (Morphine) 2 mg IV Q4H PRN PRN Reason: Pain, Moderate (4-6) Last Admin: 09/04/16 04:08 Dose: 2 mg Vancomycin HCl (Vancomycin Pharmacy To Dose) 1 each IV PKCONSULT [facility] PRN Reason: Protocol Physical Examination - Constitutional Vitals: Vital Signs Temp Pulse Resp BP Pulse Ox 97.5 F L 74 16 145/93 99 09/04/16 17:55 09/04/16 17:55 09/04/16 17:55 09/04/16 17:55 09/04/16 17:55 Temperature -Last 24 Hours Temperature 97.5 F Temperature 98.1 F Temperature 98.1 F Temperature 97.5 F Temperature 97.6 F Temperature 98.1 F Temperature 98.9 F Temperature 98.9 F Temperature 98.1 F Temperature 98.2 F Temperature 98.3 F Temperature 97.6 F Results - Labs CBC & Chem 7: 09/04/16 05:43 09/02/16 16:57 Labs: Abnormal lab results 09/03/16 09/03/16 09/04/16 Range/Units 19:21 21:07 05:43 WBC 16.6 H (4.5-11.0) K/mm3 RBC 3.09 L (3.65-5.03) M/mm3 Hgb 8.0 L (10.1-14.3) gm/dl Hct 24.8 L (30.3-42.9) % MCH 26 L (28-32) pg RDW 15.8 H (13.2-15.2) % Plt Count 448 H (140-440) K/mm3 Seg Neuts % (Manual) 75.0 H (40.0-70.0) % Lymphocytes % (Manual) 7.0 L (13.4-35.0) % Monocytes % (Manual) 8.0 H (0.0-7.3) % Seg Neutrophils # Man 12.5 H (1.8-7.7) K/mm3 Monocytes # (Manual) 1.3 H (0.0-0.8) K/mm3 POC Glucose 249 H (70-105) Vancomycin Trough 22.8 H (5.0-20.0) ug/mL 09/04/16 09/04/16 09/04/16 Range/Units 06:11 11:43 14:37 WBC (4.5-11.0) K/mm3 RBC (3.65-5.03) M/mm3 Hgb (10.1-14.3) gm/dl Hct (30.3-42.9) % MCH (28-32) pg RDW (13.2-15.2) % Plt Count (140-440) K/mm3 Seg Neuts % (Manual) (40.0-70.0) % Lymphocytes % (Manual) (13.4-35.0) % Monocytes % (Manual) (0.0-7.3) % Seg Neutrophils # Man (1.8-7.7) K/mm3 Monocytes # (Manual) (0.0-0.8) K/mm3 POC Glucose 176 H 123 H 144 H (70-105) Vancomycin Trough (5.0-20.0) ug/mL 09/04/16 Range/Units 16:52 WBC (4.5-11.0) K/mm3 RBC (3.65-5.03) M/mm3 Hgb (10.1-14.3) gm/dl Hct (30.3-42.9) % MCH (28-32) pg RDW (13.2-15.2) % Plt Count (140-440) K/mm3 Seg Neuts % (Manual) (40.0-70.0) % Lymphocytes % (Manual) (13.4-35.0) % Monocytes % (Manual) (0.0-7.3) % Seg Neutrophils # Man (1.8-7.7) K/mm3 Monocytes # (Manual) (0.0-0.8) K/mm3 POC Glucose 172 H (70-105) Vancomycin Trough (5.0-20.0) ug/mL
[2016-09-04] MEDS: ZOSYN/NS 2.25 GM/50ML 2.25 GM/50 ML BAG IV SCH (22:04)
[2016-09-04] MEDS: VANCOMYCIN/NS 1 GM/250 ML 1 GM/250 ML BAG IV SCH (22:05)
[2016-09-04] MEDS: LEVEMIR SUB-Q SCH (23:50)
[2016-09-05] MEDS: MORPHINE IV PRN ×4 (00:03→20:52)
[2016-09-05] MEDS: VANCOMYCIN/NS 1 GM/250 ML 1 GM/250 ML BAG IV SCH ×2 (06:33→22:00)
[2016-09-05] MEDS: ZOSYN/NS 2.25 GM/50ML 2.25 GM/50 ML BAG IV SCH (06:33)
[2016-09-05] MEDS: NOVOLOG SUB-Q SCH ×3 (08:01→12:54)
[2016-09-05] MEDS: LEVAQUIN 750MG/150ML 750 MG/150 ML BAG IV SCH (08:02)
[2016-09-05] MEDS: ASPIRIN PO SCH (09:23)
[2016-09-05] MEDS: HEPARIN SUB-Q SCH (09:23)
[2016-09-05] MEDS: NEURONTIN PO PRN (10:50)
--- NOTE | 2016-09-05 11:20 | Progress Note ---
Subjective Narrative: doing OK still with hi sugar . indicated to Pt the the extent of the operation , ,on wound vac . Objective Vital Signs - 12hr 09/05/16 04:57 Temperature 98.4 F Pulse Rate [ 83 Left Radial] Respiratory 16 Rate Blood Pressure 116/67 [Right Arm] - Labs 09/04/16 05:43 09/02/16 16:57
[2016-09-05] MEDS ORDERED: NACL 0.9% 250ML 250 ML ONE (12:58)
[2016-09-05] MEDS: ZOSYN/NS 4.5GM/100ML 4.5 GM/100 ML VIAL IV SCH (12:59)
--- NOTE | 2016-09-05 14:30 | Progress Note ---
Assessment and Plan Assessment and plan: Abscess with cellulitis of the anterior abdominal wall right lower quadrant: * S/P I&D on 09/01, with placement of wound vac, * Wound debridement today with replacement of the wound vac * wound culture growing gram-negative rods * Continue antibiotics and follow ID recommendation Sepsis: * From anterior abdominal wall abscess. * continue sepsis protocol, continue abx Diabetes mellitus type 2: * Continue insulins, adjust dose Diabetic peripheral neuropathy: * Continue with gabapentin. Obstructive sleep apnea: * continue CPAP Q Microbiology 08/30/16 07:07 Peripheral/Venous Blood Culture - Preliminary NO GROWTH AFTER 4 DAYS 08/30/16 07:07 Peripheral/Venous Blood Culture - Preliminary NO GROWTH AFTER 4 DAYS 09/01/16 14:53 Abdomen Anaerobic Culture - Preliminary 09/01/16 14:53 Abdomen Surgical Culture - Preliminary History Interval history: Patient seen and examined. Medical records and medication list reviewed. No acute event overnight noted by the RN. s/p wound debridement today Discussed plan of care at bedside with patient. Hospitalist Physical - Physical exam Narrative exam: General: Patient appears well in no distress, obese HEENT: MMM, EOMI cardiac: S1-S2 heard lungs: clear to auscultation, abdomen: soft, nontender, nondistended bowel sounds positive Skin: Wound VAC is seen over the right pannus, has surrounding induration, interval decrease in warmth and tenderness extremities: no edema clubbing or cyanosis Neuro: no focal deficit Psych: appropriate behavior and mood, cognition intact - Constitutional Vitals: Temp Pulse Resp BP Pulse Ox 98.4 F 83 16 116/67 99 09/05/16 04:57 09/05/16 04:57 09/05/16 04:57 09/05/16 04:57 09/04/16 17:55 General appearance: Present: no acute distress, obese Results - Labs CBC & Chem 7: 09/04/16 05:43 09/02/16 16:57 Labs: Laboratory Last Values WBC 16.6 K/mm3 (4.5-11.0) H 09/04/16 05:43 RBC 3.09 M/mm3 (3.65-5.03) L 09/04/16 05:43 Hgb 8.0 gm/dl (10.1-14.3) L 09/04/16 05:43 Hct 24.8 % (30.3-42.9) L 09/04/16 05:43 MCV 81 fl (79-97) 09/04/16 05:43 MCH 26 pg (28-32) L 09/04/16 05:43 MCHC 32 % (30-34) 09/04/16 05:43 RDW 15.8 % (13.2-15.2) H 09/04/16 05:43 Plt Count 448 K/mm3 (140-440) H 09/04/16 05:43 Lymph % (Auto) [employer] 09/02/16 06:46 [place] % (Auto) [employer] 09/02/16 06:46 Eos % (Auto) [employer] 09/02/16 06:46 Baso % (Auto) [employer] 09/02/16 06:46 Lymph # [employer] 09/02/16 06:46 [place] # [employer] 09/02/16 06:46 Eos # [employer] 09/02/16 06:46 Baso # [employer] Inspector 09/02/16 06:46 Add Manual Diff Complete 09/04/16 05:43 Total Counted 100 09/04/16 05:43 Seg Neutrophils % [employer] 09/02/16 06:46 Seg Neuts % (Manual) 75.0 % (40.0-70.0) H 09/04/16 05:43 Band Neutrophils % 9.0 % 09/04/16 05:43 Lymphocytes % (Manual) 7.0 % (13.4-35.0) L 09/04/16 05:43 Reactive Lymphs % (Man) 0 % 09/04/16 05:43 Monocytes % (Manual) 8.0 % (0.0-7.3) H 09/04/16 05:43 Eosinophils % (Manual) 1.0 % (0.0-4.3) 09/04/16 05:43 Basophils % (Manual) 0 % (0.0-1.8) 09/04/16 05:43 Metamyelocytes % 0 % 09/04/16 05:43 Myelocytes % 0 % 09/04/16 05:43 Promyelocytes % 0 % 09/04/16 05:43 Blast Cells % 0 % 09/04/16 05:43 Nucleated RBC % Not Reportable 09/04/16 05:43 Seg Neutrophils # [employer] 09/02/16 06:46 Seg Neutrophils # Man 12.5 K/mm3 (1.8-7.7) H 09/04/16 05:43 Band Neutrophils # 1.5 K/mm3 09/04/16 05:43 Lymphocytes # (Manual) 1.2 K/mm3 (1.2-5.4) 09/04/16 05:43 Abs React Lymphs (Man) 0.0 K/mm3 09/04/16 05:43 Monocytes # (Manual) 1.3 K/mm3 (0.0-0.8) H 09/04/16 05:43 Eosinophils # (Manual) 0.2 K/mm3 (0.0-0.4) 09/04/16 05:43 Basophils # (Manual) 0.0 K/mm3 (0.0-0.1) 09/04/16 05:43 Metamyelocytes # 0.0 K/mm3 09/04/16 05:43 Myelocytes # 0.0 K/mm3 09/04/16 05:43 Promyelocytes # 0.0 K/mm3 09/04/16 05:43 Blast Cells # 0.0 K/mm3 09/04/16 05:43 WBC Morphology Not Reportable 09/04/16 05:43 Hypersegmented Neuts Not Reportable 09/04/16 05:43 Hyposegmented Neuts Not Reportable 09/04/16 05:43 Hypogranular Neuts Not Reportable 09/04/16 05:43 Smudge Cells Not Reportable 09/04/16 05:43 Toxic Granulation Not Reportable 09/04/16 05:43 Toxic Vacuolation Not Reportable 09/04/16 05:43 Dohle Bodies Not Reportable 09/04/16 05:43 Pelger-Huet Anomaly Not Reportable 09/04/16 05:43 Eddy Rods Not Reportable 09/04/16 05:43 Platelet Estimate Appears normal 09/04/16 05:43 Clumped Platelets Not Reportable 09/04/16 05:43 Plt Clumps, EDTA Not Reportable 09/04/16 05:43 Large Platelets Not Reportable 09/04/16 05:43 Giant Platelets Not Reportable 09/04/16 05:43 Platelet Satelliting Not Reportable 09/04/16 05:43 Plt Morphology Comment Not Reportable 09/04/16 05:43 RBC Morphology Not Reportable 09/04/16 05:43 Dimorphic RBCs Not Reportable 09/04/16 05:43 Polychromasia Not Reportable 09/04/16 05:43 Hypochromasia Few 09/04/16 05:43 Poikilocytosis Not Reportable 09/04/16 05:43 Anisocytosis Not Reportable 09/04/16 05:43 Microcytosis Not Reportable 09/04/16 05:43 Macrocytosis Not Reportable 09/04/16 05:43 Spherocytes Not Reportable 09/04/16 05:43 Pappenheimer Bodies Not Reportable 09/04/16 05:43 Sickle Cells Not Reportable 09/04/16 05:43 Target Cells Not Reportable 09/04/16 05:43 Tear Drop Cells Not Reportable 09/04/16 05:43 Ovalocytes Not Reportable 09/04/16 05:43 Helmet Cells Not Reportable 09/04/16 05:43 [place] Bodies Not Reportable 09/04/16 05:43 [place] Rings Not Reportable 09/04/16 05:43 [place] Cells Not Reportable 09/04/16 05:43 Bite Cells Not Reportable 09/04/16 05:43 Crenated Cell Not Reportable 09/04/16 05:43 Elliptocytes Not Reportable 09/04/16 05:43 Acanthocytes (Spur) Not Reportable 09/04/16 05:43 Rouleaux Not Reportable 09/04/16 05:43 Hemoglobin C Crystals Not Reportable 09/04/16 05:43 Schistocytes Not Reportable 09/04/16 05:43 Malaria parasites Not Reportable 09/04/16 05:43 [place] Bodies Not Reportable 09/04/16 05:43 Hem Pathologist Commnt No 09/04/16 05:43 VBG pH 7.368 (7.320-7.420) 08/30/16 07:07 Sodium 134 mmol/L (137-145) L 09/02/16 16:57 Potassium 4.5 mmol/L (3.6-5.0) 09/02/16 16:57 Chloride 98.6 mmol/L (98-107) 09/02/16 16:57 Carbon Dioxide 22 mmol/L (22-30) 09/02/16 16:57 Anion Gap 18 mmol/L 09/02/16 16:57 BUN 19 mg/dL (7-17) H 09/02/16 16:57 Creatinine 1.5 mg/dL (0.7-1.2) H 09/02/16 16:57 Estimated GFR 46 ml/min 09/02/16 16:57 BUN/Creatinine Ratio 12.66 % 09/02/16 16:57 Glucose 148 mg/dL (65-100) H 09/02/16 16:57 POC Glucose 226 (70-105) H 09/05/16 12:15 Hemoglobin A1c 9.7 % (4-6) H 08/30/16 12:09 Lactic Acid 0.9 mmol/L (0.7-2.0) 09/02/16 10:49 Calcium 7.9 mg/dL (8.4-10.2) L 09/02/16 16:57 Phosphorus 2.7 mg/dL (2.5-4.5) 08/31/16 05:50 Magnesium 2.1 mg/dL (1.7-2.3) 08/31/16 05:50 Total Bilirubin 0.4 mg/dL (0.1-1.2) 09/02/16 06:46 AST 26 units/L (5-40) 09/02/16 06:46 ALT 15 units/L (7-56) 09/02/16 06:46 Alkaline Phosphatase 135 units/L (35-129) H 09/02/16 06:46 Total Protein 6.1 g/dL (6.3-8.2) L 09/02/16 06:46 Albumin 1.8 g/dL (3.9-5) L 09/02/16 06:46 Albumin/Globulin Ratio 0.4 % 09/02/16 06:46 Triglycerides 126 mg/dL (2-149) 08/30/16 12:09 Cholesterol 106 mg/dL (50-199) 08/30/16 12:09 LDL Cholesterol Direct 74 mg/dL (50-130) 08/30/16 12:09 HDL Cholesterol 7 mg/dL (40-59) L 08/30/16 12:09 Cholesterol/HDL Ratio 15.14 % 08/30/16 12:09 Urine Color Yellow (Yellow) 08/29/16 Unknown Urine Turbidity Clear (Clear) 08/29/16 Unknown Urine pH 6.0 (5.0-7.0) 08/29/16 Unknown Ur Specific [place] 1.027 (1.003-1.030) 08/29/16 Unknown Urine Protein 100 mg/dl mg/dL (Negative) 08/29/16 Unknown Urine Glucose (UA) >=500 mg/dL (Negative) 08/29/16 Unknown Urine Ketones Neg mg/dL (Negative) 08/29/16 Unknown Urine Blood Mod (Negative) 08/29/16 Unknown Urine Nitrite Neg (Negative) 08/29/16 Unknown Urine Bilirubin Neg (Negative) 08/29/16 Unknown Urine Urobilinogen 4.0 mg/dL (<2.0) 08/29/16 Unknown Ur Leukocyte Esterase Neg (Negative) 08/29/16 Unknown Urine WBC (Auto) 3.0 /HPF (0.0-6.0) 08/29/16 Unknown Urine RBC (Auto) 7.0 /HPF (0.0-6.0) 08/29/16 Unknown U Epithel Cells (Auto) 2.0 /HPF (0-13.0) 08/29/16 Unknown Urine Bacteria (Auto) 1+ /HPF (Negative) 08/29/16 Unknown Urine Mucus Few /HPF 08/29/16 Unknown Urine HCG, Qual Negative (Negative) 08/30/16 Unknown Vancomycin Trough 22.8 ug/mL (5.0-20.0) H 09/03/16 19:21 Ketones 0.5 mmol/L (-0.28) H 08/30/16 07:07
--- NOTE | 2016-09-05 14:37 | Progress Note ---
Assessment and Plan Assessment and plan: Abscess with cellulitis of the anterior abdominal wall right lower quadrant: * S/P I&D on 09/01, and Wound debridement on 09/04 with replacement of wound vac , * wound culture growing gram-negative rods * changed abx to vanc and zosyn * place a PICC line Sepsis: * From anterior abdominal wall abscess. * continue sepsis protocol, continue abx Diabetes mellitus type 2: * increase dose of insulin Diabetic peripheral neuropathy: * Continue with gabapentin. Obstructive sleep apnea: * continue CPAP QHS SHABBIR, Cr 1.3-1.5 on 09/02 - could be due to vasomotor nephropathy - iv fluid, repeat BMP Microbiology 09/01/16 14:53 Abdomen Surgical Culture - Preliminary 09/04/16 Unknown Abdomen Surgical Culture - Preliminary 09/04/16 Unknown Abdomen Surgical Biopsy Culture - Preliminary 09/01/16 14:53 Abdomen Anaerobic Culture - Preliminary 08/30/16 07:07 Peripheral/Venous Blood Culture - Final NO GROWTH AFTER 5 DAYS 08/30/16 07:07 Peripheral/Venous Blood Culture - Final NO GROWTH AFTER 5 DAYS History Interval history: Patient seen and examined. Medical records and medication list reviewed. No acute event overnight noted by the RN. BG elevated this am, doing well Discussed plan of care at bedside with patient. Hospitalist Physical - Physical exam Narrative exam: General: Patient appears well in no distress, obese HEENT: MMM, EOMI cardiac: S1-S2 heard lungs: clear to auscultation, abdomen: soft, nontender, nondistended bowel sounds positive Skin: Wound VAC is seen over the right pannus, has surrounding induration, interval decrease in warmth and tenderness extremities: no edema clubbing or cyanosis Neuro: no focal deficit Psych: appropriate behavior and mood, cognition intact - Constitutional Vitals: Temp Pulse Resp BP Pulse Ox 98.4 F 83 16 116/67 99 09/05/16 04:57 09/05/16 04:57 09/05/16 04:57 09/05/16 04:57 09/04/16 17:55 General appearance: Present: no acute distress, obese Results - Labs CBC & Chem 7: 09/04/16 05:43 09/02/16 16:57 Labs: Laboratory Last Values WBC 16.6 K/mm3 (4.5-11.0) H 09/04/16 05:43 RBC 3.09 M/mm3 (3.65-5.03) L 09/04/16 05:43 Hgb 8.0 gm/dl (10.1-14.3) L 09/04/16 05:43 Hct 24.8 % (30.3-42.9) L 09/04/16 05:43 MCV 81 fl (79-97) 09/04/16 05:43 MCH 26 pg (28-32) L 09/04/16 05:43 MCHC 32 % (30-34) 09/04/16 05:43 RDW 15.8 % (13.2-15.2) H 09/04/16 05:43 Plt Count 448 K/mm3 (140-440) H 09/04/16 05:43 Lymph % (Auto) [employer] Tig Welder 09/02/16 06:46 [place] % (Auto) [employer] Tig Welder 09/02/16 06:46 Eos % (Auto) [employer] Tig Welder 09/02/16 06:46 Baso % (Auto) [employer] Tig Welder 09/02/16 06:46 Lymph # [employer] Tig Welder 09/02/16 06:46 [place] # [employer] Tig Welder 09/02/16 06:46 Eos # [employer] Tig Welder 09/02/16 06:46 Baso # [employer] Tig Welder 09/02/16 06:46 Add Manual Diff Complete 09/04/16 05:43 Total Counted 100 09/04/16 05:43 Seg Neutrophils % [employer] Tig Welder 09/02/16 06:46 Seg Neuts % (Manual) 75.0 % (40.0-70.0) H 09/04/16 05:43 Band Neutrophils % 9.0 % 09/04/16 05:43 Lymphocytes % (Manual) 7.0 % (13.4-35.0) L 09/04/16 05:43 Reactive Lymphs % (Man) 0 % 09/04/16 05:43 Monocytes % (Manual) 8.0 % (0.0-7.3) H 09/04/16 05:43 Eosinophils % (Manual) 1.0 % (0.0-4.3) 09/04/16 05:43 Basophils % (Manual) 0 % (0.0-1.8) 09/04/16 05:43 Metamyelocytes % 0 % 09/04/16 05:43 Myelocytes % 0 % 09/04/16 05:43 Promyelocytes % 0 % 09/04/16 05:43 Blast Cells % 0 % 09/04/16 05:43 Nucleated RBC % Not Reportable 09/04/16 05:43 Seg Neutrophils # [employer] Tig Welder 09/02/16 06:46 Seg Neutrophils # Man 12.5 K/mm3 (1.8-7.7) H 09/04/16 05:43 Band Neutrophils # 1.5 K/mm3 09/04/16 05:43 Lymphocytes # (Manual) 1.2 K/mm3 (1.2-5.4) 09/04/16 05:43 Abs React Lymphs (Man) 0.0 K/mm3 09/04/16 05:43 Monocytes # (Manual) 1.3 K/mm3 (0.0-0.8) H 09/04/16 05:43 Eosinophils # (Manual) 0.2 K/mm3 (0.0-0.4) 09/04/16 05:43 Basophils # (Manual) 0.0 K/mm3 (0.0-0.1) 09/04/16 05:43 Metamyelocytes # 0.0 K/mm3 09/04/16 05:43 Myelocytes # 0.0 K/mm3 09/04/16 05:43 Promyelocytes # 0.0 K/mm3 09/04/16 05:43 Blast Cells # 0.0 K/mm3 09/04/16 05:43 WBC Morphology Not Reportable 09/04/16 05:43 Hypersegmented Neuts Not Reportable 09/04/16 05:43 Hyposegmented Neuts Not Reportable 09/04/16 05:43 Hypogranular Neuts Not Reportable 09/04/16 05:43 Smudge Cells Not Reportable 09/04/16 05:43 Toxic Granulation Not Reportable 09/04/16 05:43 Toxic Vacuolation Not Reportable 09/04/16 05:43 Dohle Bodies Not Reportable 09/04/16 05:43 Pelger-Huet Anomaly Not Reportable 09/04/16 05:43 Eddy Rods Not Reportable 09/04/16 05:43 Platelet Estimate Appears normal 09/04/16 05:43 Clumped Platelets Not Reportable 09/04/16 05:43 Plt Clumps, EDTA Not Reportable 09/04/16 05:43 Large Platelets Not Reportable 09/04/16 05:43 Giant Platelets Not Reportable 09/04/16 05:43 Platelet Satelliting Not Reportable 09/04/16 05:43 Plt Morphology Comment Not Reportable 09/04/16 05:43 RBC Morphology Not Reportable 09/04/16 05:43 Dimorphic RBCs Not Reportable 09/04/16 05:43 Polychromasia Not Reportable 09/04/16 05:43 Hypochromasia Few 09/04/16 05:43 Poikilocytosis Not Reportable 09/04/16 05:43 Anisocytosis Not Reportable 09/04/16 05:43 Microcytosis Not Reportable 09/04/16 05:43 Macrocytosis Not Reportable 09/04/16 05:43 Spherocytes Not Reportable 09/04/16 05:43 Pappenheimer Bodies Not Reportable 09/04/16 05:43 Sickle Cells Not Reportable 09/04/16 05:43 Target Cells Not Reportable 09/04/16 05:43 Tear Drop Cells Not Reportable 09/04/16 05:43 Ovalocytes Not Reportable 09/04/16 05:43 Helmet Cells Not Reportable 09/04/16 05:43 [place] Bodies Not Reportable 09/04/16 05:43 [place] Rings Not Reportable 09/04/16 05:43 [place] Cells Not Reportable 09/04/16 05:43 Bite Cells Not Reportable 09/04/16 05:43 Crenated Cell Not Reportable 09/04/16 05:43 Elliptocytes Not Reportable 09/04/16 05:43 Acanthocytes (Spur) Not Reportable 09/04/16 05:43 Rouleaux Not Reportable 09/04/16 05:43 Hemoglobin C Crystals Not Reportable 09/04/16 05:43 Schistocytes Not Reportable 09/04/16 05:43 Malaria parasites Not Reportable 09/04/16 05:43 [place] Bodies Not Reportable 09/04/16 05:43 Hem Pathologist Commnt No 09/04/16 05:43 VBG pH 7.368 (7.320-7.420) 08/30/16 07:07 Sodium 134 mmol/L (137-145) L 09/02/16 16:57 Potassium 4.5 mmol/L (3.6-5.0) 09/02/16 16:57 Chloride 98.6 mmol/L (98-107) 09/02/16 16:57 Carbon Dioxide 22 mmol/L (22-30) 09/02/16 16:57 Anion Gap 18 mmol/L 09/02/16 16:57 BUN 19 mg/dL (7-17) H 09/02/16 16:57 Creatinine 1.5 mg/dL (0.7-1.2) H 09/02/16 16:57 Estimated GFR 46 ml/min 09/02/16 16:57 BUN/Creatinine Ratio 12.66 % 09/02/16 16:57 Glucose 148 mg/dL (65-100) H 09/02/16 16:57 POC Glucose 226 (70-105) H 09/05/16 12:15 Hemoglobin A1c 9.7 % (4-6) H 08/30/16 12:09 Lactic Acid 0.9 mmol/L (0.7-2.0) 09/02/16 10:49 Calcium 7.9 mg/dL (8.4-10.2) L 09/02/16 16:57 Phosphorus 2.7 mg/dL (2.5-4.5) 08/31/16 05:50 Magnesium 2.1 mg/dL (1.7-2.3) 08/31/16 05:50 Total Bilirubin 0.4 mg/dL (0.1-1.2) 09/02/16 06:46 AST 26 units/L (5-40) 09/02/16 06:46 ALT 15 units/L (7-56) 09/02/16 06:46 Alkaline Phosphatase 135 units/L (35-129) H 09/02/16 06:46 Total Protein 6.1 g/dL (6.3-8.2) L 09/02/16 06:46 Albumin 1.8 g/dL (3.9-5) L 09/02/16 06:46 Albumin/Globulin Ratio 0.4 % 09/02/16 06:46 Triglycerides 126 mg/dL (2-149) 08/30/16 12:09 Cholesterol 106 mg/dL (50-199) 08/30/16 12:09 LDL Cholesterol Direct 74 mg/dL (50-130) 08/30/16 12:09 HDL Cholesterol 7 mg/dL (40-59) L 08/30/16 12:09 Cholesterol/HDL Ratio 15.14 % 08/30/16 12:09 Urine Color Yellow (Yellow) 08/29/16 Unknown Urine Turbidity Clear (Clear) 08/29/16 Unknown Urine pH 6.0 (5.0-7.0) 08/29/16 Unknown Ur Specific [place] 1.027 (1.003-1.030) 08/29/16 Unknown Urine Protein 100 mg/dl mg/dL (Negative) 08/29/16 Unknown Urine Glucose (UA) >=500 mg/dL (Negative) 08/29/16 Unknown Urine Ketones Neg mg/dL (Negative) 08/29/16 Unknown Urine Blood Mod (Negative) 08/29/16 Unknown Urine Nitrite Neg (Negative) 08/29/16 Unknown Urine Bilirubin Neg (Negative) 08/29/16 Unknown Urine Urobilinogen 4.0 mg/dL (<2.0) 08/29/16 Unknown Ur Leukocyte Esterase Neg (Negative) 08/29/16 Unknown Urine WBC (Auto) 3.0 /HPF (0.0-6.0) 08/29/16 Unknown Urine RBC (Auto) 7.0 /HPF (0.0-6.0) 08/29/16 Unknown U Epithel Cells (Auto) 2.0 /HPF (0-13.0) 08/29/16 Unknown Urine Bacteria (Auto) 1+ /HPF (Negative) 08/29/16 Unknown Urine Mucus Few /HPF 08/29/16 Unknown Urine HCG, Qual Negative (Negative) 08/30/16 Unknown Vancomycin Trough 22.8 ug/mL (5.0-20.0) H 09/03/16 19:21 Ketones 0.5 mmol/L (-0.28) H 08/30/16 07:07
[2016-09-05] MEDS ORDERED: NACL 0.9% 1000 ML 1,000 ML IV SCH (15:00)
--- NOTE | 2016-09-05 19:57 | Progress Note ---
Subjective Date of service: 09/05/16 Principal diagnosis: sepsis Interval history: Patient seen and evaluated. No new complaints. PHYSICAL EXAM VS - Afebrile chest - good air entry cvs - s1s2 abd - wound vac in place. LABS - Reviewed. See lab section no growth so far from cultures. ASSESSMENT 1. Sepsis 2. Abdominal wall abscess s/p debridement. 4. DM2 4. Obesity RECOMMENDATION 1. CONTINUE VANCOMYCIN. Adjust dosing per renal function 2. cbc/bmp in am 3. Continue wound care. 4. d/c planning on wound care and iv antibiotics. Consider LTAC vs home iv antibiotics and wound care. Preference for LTAC for closer monitoring of wound. Objective - Constitutional Vitals: Vital Signs Temp Pulse Resp BP Pulse Ox 98.1 F 81 18 122/68 98 09/05/16 16:30 09/05/16 16:30 09/05/16 16:30 09/05/16 16:30 09/05/16 16:30 Temperature -Last 24 Hours Temperature 98.1 F Temperature 98.4 F Temperature 98.6 F - Labs CBC & Chem 7: 09/04/16 05:43 09/02/16 16:57 Labs: Abnormal lab results 09/04/16 09/05/16 09/05/16 Range/Units 22:56 08:30 12:15 POC Glucose 276 H 229 H 226 H (70-105) 09/05/16 Range/Units 16:47 POC Glucose 222 H (70-105)
[2016-09-06] MEDS: VANCOMYCIN/NS 1 GM/250 ML 1 GM/250 ML BAG IV SCH (00:44)
[2016-09-06] MEDS: ZOSYN/NS 4.5GM/100ML 4.5 GM/100 ML VIAL IV SCH ×4 (00:46→23:37)
[2016-09-06] MEDS: HEPARIN SUB-Q SCH ×3 (00:48→22:00)
[2016-09-06] MEDS: LEVEMIR SUB-Q SCH ×2 (00:52→22:00)
[2016-09-06] MEDS: MORPHINE IV PRN ×2 (03:10→20:20)
[2016-09-06 06:37] LABS: Hematocrit 22.3 % (30.3-42.9); Hemoglobin 7.1 gm/dl (10.1-14.3); Mean Corpuscular HGB Conc 32 % (30-34); Mean Corpuscular Volume 80 fl (79-97); Platelet Count 472 K/mm3 (140-440); Red Blood Count 2.78 M/mm3 (3.65-5.03); Red Cell Distribution Width 15.9 % (13.2-15.2); White Blood Count 13.4 K/mm3 (4.5-11.0)
[2016-09-06 06:40] LABS: BUN/Creatinine Ratio 10.62; Calcium 7.8 mg/dL (8.4-10.2); Chloride 104.7 mmol/L (98-107); Potassium 4.8 mmol/L (3.6-5.0)
[2016-09-06 06:53] LABS: Mean Corpuscular Hemoglobin 26 pg (28-32)
[2016-09-06 07:55] LABS: Anisocytosis 1+; Basophils % (Manual) 0 % (0.0-1.8); Blastocytes % (Manual) 0 %; Diff Status Complete; Hypochromasia Few
[2016-09-06] MEDS ORDERED: NACL 0.9% 500 ML 500 ML IV ONE (08:30)
[2016-09-06] MEDS: ASPIRIN PO SCH (11:14)
[2016-09-06] MEDS: NEURONTIN PO PRN (11:16)
--- NOTE | 2016-09-06 13:53 | Progress Note ---
Subjective Narrative: Doing OK ,indicated to Pt need to have plastic to consider abdomino plasty , will have Dr Work to see. Objective Vital Signs - 12hr 09/06/16 09/06/16 09/06/16 04:00 07:30 12:00 Temperature 98.6 F 98.2 F 98.8 F Pulse Rate [ 79 78 Left Radial] Pulse Rate [ 79 Right Radial] Respiratory 18 20 20 Rate Blood Pressure 130/79 119/75 141/81 [Right Arm] O2 Sat by Pulse 99 98 Oximetry - Labs 09/06/16 04:32 09/06/16 04:32 Diabetes panel 09/06/16 Range/Units 04:32 Sodium 137 (137-145) mmol/L Potassium 4.8 (3.6-5.0) mmol/L Chloride 104.7 (98-107) mmol/L Carbon Dioxide 23 (22-30) mmol/L BUN 17 (7-17) mg/dL Creatinine 1.6 H (0.7-1.2) mg/dL Glucose 169 H (65-100) mg/dL Calcium 7.8 L (8.4-10.2) mg/dL Calcium panel 09/06/16 Range/Units 04:32 Calcium 7.8 L (8.4-10.2) mg/dL Pituitary panel 09/06/16 Range/Units 04:32 Sodium 137 (137-145) mmol/L Potassium 4.8 (3.6-5.0) mmol/L Chloride 104.7 (98-107) mmol/L Carbon Dioxide 23 (22-30) mmol/L BUN 17 (7-17) mg/dL Creatinine 1.6 H (0.7-1.2) mg/dL Glucose 169 H (65-100) mg/dL Calcium 7.8 L (8.4-10.2) mg/dL Adrenal panel 09/06/16 Range/Units 04:32 Sodium 137 (137-145) mmol/L Potassium 4.8 (3.6-5.0) mmol/L Chloride 104.7 (98-107) mmol/L Carbon Dioxide 23 (22-30) mmol/L BUN 17 (7-17) mg/dL Creatinine 1.6 H (0.7-1.2) mg/dL Glucose 169 H (65-100) mg/dL Calcium 7.8 L (8.4-10.2) mg/dL
--- NOTE | 2016-09-06 14:53 | Progress Note ---
Assessment and Plan Assessment and plan: Abscess with cellulitis of the anterior abdominal wall right lower quadrant: * S/P I&D on 09/01, and Wound debridement on 09/04 with replacement of wound vac , * wound culture on 09/01 growing gram-negative rods, repeat cultures are negative for any organism * changed abx to vanc and zosyn by ID * Ordered for a PICC line Sepsis: * From anterior abdominal wall abscess. * continue sepsis protocol, continue abx Diabetes mellitus type 2: * Continue insulin long acting and Sliding-scale * ADA diet Diabetic peripheral neuropathy: * Continue with gabapentin. Obstructive sleep apnea: * continue CPAP QHS SHABBIR, Cr 1.3 to 1.5 on 09/02 - could be due to vasomotor nephropathy -Continue iv fluid, creatinine 1.6 today, monito renal function. Anemia, likely due to blood loss -Transfuse 1 unit packed RBC today Disposition: LTAC fo better wound care, CM notified Microbiology 09/01/16 14:53 Abdomen Surgical Culture - Preliminary 09/04/16 Unknown Abdomen Surgical Culture - Preliminary 09/04/16 Unknown Abdomen Surgical Biopsy Culture - Preliminary 09/01/16 14:53 Abdomen Anaerobic Culture - Preliminary 08/30/16 07:07 Peripheral/Venous Blood Culture - Final NO GROWTH AFTER 5 DAYS 08/30/16 07:07 Peripheral/Venous Blood Culture - Final NO GROWTH AFTER 5 DAYS History Interval history: Patient seen and examined. Medical records and medication list reviewed. No acute event overnight noted by the RN. doing well, Hb dropped to 7.1 today Discussed plan of care at bedside with patient. Hospitalist Physical - Physical exam Narrative exam: General: Patient appears well in no distress, obese HEENT: MMM, EOMI cardiac: S1-S2 heard lungs: clear to auscultation, abdomen: soft, nontender, nondistended bowel sounds positive Skin: Wound VAC is seen over the right pannus, has surrounding induration, interval decrease in warmth and tenderness extremities: no edema clubbing or cyanosis Neuro: no focal deficit Psych: appropriate behavior and mood, cognition intact - Constitutional Vitals: Temp Pulse Resp BP Pulse Ox 98.8 F 78 20 141/81 98 09/06/16 12:00 09/06/16 12:00 09/06/16 12:00 09/06/16 12:09/06/16 07:30 General appearance: Present: no acute distress, obese Results - Labs CBC & Chem 7: 09/06/16 04:32 09/06/16 04:32 Labs: Laboratory Last Values WBC 13.4 K/mm3 (4.5-11.0) H 09/06/16 04:32 RBC 2.78 M/mm3 (3.65-5.03) L 09/06/16 04:32 Hgb 7.1 gm/dl (10.1-14.3) L 09/06/16 04:32 Hct 22.3 % (30.3-42.9) L 09/06/16 04:32 MCV 80 fl (79-97) 09/06/16 04:32 MCH 26 pg (28-32) L 09/06/16 04:32 MCHC 32 % (30-34) 09/06/16 04:32 RDW 15.9 % (13.2-15.2) H 09/06/16 04:32 Plt Count 472 K/mm3 (140-440) H 09/06/16 04:32 Lymph % (Auto) [employer]ing [employer] 09/02/16 06:46 [place] % (Auto) [employer] 09/02/16 06:46 Eos % (Auto) [employer] Att[employer] 09/02/16 06:46 Baso % (Auto) [employer] Att[employer] 09/02/16 06:46 Lymph # [employer] 09/02/16 06:46 [place] # Parking Lot Attendant [employer] Cashier 09/02/16 06:46 Eos # Parking Lot Attendant And Cash[employer] 09/02/16 06:46 Baso # [employer] Lot Att[employer] 09/02/16 06:46 Add Manual Diff Complete 09/06/16 04:32 Total Counted 100 09/06/16 04:32 Seg Neutrophils % [employer] 09/02/16 06:46 Seg Neuts % (Manual) 57.0 % (40.0-70.0) 09/06/16 04:32 Band Neutrophils % 6.0 % 09/06/16 04:32 Lymphocytes % (Manual) 26.0 % (13.4-35.0) 09/06/16 04:32 Reactive Lymphs % (Man) 0 % 09/06/16 04:32 Monocytes % (Manual) 7.0 % (0.0-7.3) 09/06/16 04:32 Eosinophils % (Manual) 4.0 % (0.0-4.3) 09/06/16 04:32 Basophils % (Manual) 0 % (0.0-1.8) 09/06/16 04:32 Metamyelocytes % 0 % 09/06/16 04:32 Myelocytes % 0 % 09/06/16 04:32 Promyelocytes % 0 % 09/06/16 04:32 Blast Cells % 0 % 09/06/16 04:32 Nucleated RBC % Not Reportable 09/06/16 04:32 Seg Neutrophils # Parking Lot Attendant [employer] Cashier 09/02/16 06:46 Seg Neutrophils # Man 7.6 K/mm3 (1.8-7.7) 09/06/16 04:32 Band Neutrophils # 0.8 K/mm3 09/06/16 04:32 Lymphocytes # (Manual) 3.5 K/mm3 (1.2-5.4) 09/06/16 04:32 Abs React Lymphs (Man) 0.0 K/mm3 09/06/16 04:32 Monocytes # (Manual) 0.9 K/mm3 (0.0-0.8) H 09/06/16 04:32 Eosinophils # (Manual) 0.5 K/mm3 (0.0-0.4) H 09/06/16 04:32 Basophils # (Manual) 0.0 K/mm3 (0.0-0.1) 09/06/16 04:32 Metamyelocytes # 0.0 K/mm3 09/06/16 04:32 Myelocytes # 0.0 K/mm3 09/06/16 04:32 Promyelocytes # 0.0 K/mm3 09/06/16 04:32 Blast Cells # 0.0 K/mm3 09/06/16 04:32 WBC Morphology Not Reportable 09/06/16 04:32 Hypersegmented Neuts Not Reportable 09/06/16 04:32 Hyposegmented Neuts Not Reportable 09/06/16 04:32 Hypogranular Neuts Not Reportable 09/06/16 04:32 Smudge Cells Not Reportable 09/06/16 04:32 Toxic Granulation Not Reportable 09/06/16 04:32 Toxic Vacuolation Not Reportable 09/06/16 04:32 Dohle Bodies Not Reportable 09/06/16 04:32 Pelger-Huet Anomaly Not Reportable 09/06/16 04:32 Eddy Rods Not Reportable 09/06/16 04:32 Platelet Estimate Appears normal 09/06/16 04:32 Clumped Platelets Not Reportable 09/06/16 04:32 Plt Clumps, EDTA Not Reportable 09/06/16 04:32 Large Platelets Not Reportable 09/06/16 04:32 Giant Platelets Not Reportable 09/06/16 04:32 Platelet Satelliting Not Reportable 09/06/16 04:32 Plt Morphology Comment Not Reportable 09/06/16 04:32 RBC Morphology Not Reportable 09/06/16 04:32 Dimorphic RBCs Not Reportable 09/06/16 04:32 Polychromasia Not Reportable 09/06/16 04:32 Hypochromasia Few 09/06/16 04:32 Poikilocytosis Not Reportable 09/06/16 04:32 Anisocytosis 1+ 09/06/16 04:32 Microcytosis Not Reportable 09/06/16 04:32 Macrocytosis Not Reportable 09/06/16 04:32 Spherocytes Not Reportable 09/06/16 04:32 Pappenheimer Bodies Not Reportable 09/06/16 04:32 Sickle Cells Not Reportable 09/06/16 04:32 Target Cells Not Reportable 09/06/16 04:32 Tear Drop Cells Not Reportable 09/06/16 04:32 Ovalocytes Not Reportable 09/06/16 04:32 Helmet Cells Not Reportable 09/06/16 04:32 [place] Bodies Not Reportable 09/06/16 04:32 [place] Rings Not Reportable 09/06/16 04:32 [place] Cells Not Reportable 09/06/16 04:32 Bite Cells Not Reportable 09/06/16 04:32 Crenated Cell Not Reportable 09/06/16 04:32 Elliptocytes Not Reportable 09/06/16 04:32 Acanthocytes (Spur) Not Reportable 09/06/16 04:32 Rouleaux Not Reportable 09/06/16 04:32 Hemoglobin C Crystals Not Reportable 09/06/16 04:32 Schistocytes Not Reportable 09/06/16 04:32 Malaria parasites Not Reportable 09/06/16 04:32 [place] Bodies Not Reportable 09/06/16 04:32 Hem Pathologist Commnt No 09/06/16 04:32 VBG pH 7.368 (7.320-7.420) 08/30/16 07:07 Sodium 137 mmol/L (137-145) 09/06/16 04:32 Potassium 4.8 mmol/L (3.6-5.0) 09/06/16 04:32 Chloride 104.7 mmol/L (98-107) 09/06/16 04:32 Carbon Dioxide 23 mmol/L (22-30) 09/06/16 04:32 Anion Gap 14 mmol/L 09/06/16 04:32 BUN 17 mg/dL (7-17) 09/06/16 04:32 Creatinine 1.6 mg/dL (0.7-1.2) H 09/06/16 04:32 Estimated GFR 43 ml/min 09/06/16 04:32 BUN/Creatinine Ratio 10.62 % 09/06/16 04:32 Glucose 169 mg/dL (65-100) H 09/06/16 04:32 POC Glucose 188 (70-105) H 09/06/16 07:13 Hemoglobin A1c 9.7 % (4-6) H 08/30/16 12:09 Lactic Acid 0.9 mmol/L (0.7-2.0) 09/02/16 10:49 Calcium 7.8 mg/dL (8.4-10.2) L 09/06/16 04:32 Phosphorus 2.7 mg/dL (2.5-4.5) 08/31/16 05:50 Magnesium 2.1 mg/dL (1.7-2.3) 08/31/16 05:50 Total Bilirubin 0.4 mg/dL (0.1-1.2) 09/02/16 06:46 AST 26 units/L (5-40) 09/02/16 06:46 ALT 15 units/L (7-56) 09/02/16 06:46 Alkaline Phosphatase 135 units/L (35-129) H 09/02/16 06:46 Total Protein 6.1 g/dL (6.3-8.2) L 09/02/16 06:46 Albumin 1.8 g/dL (3.9-5) L 09/02/16 06:46 Albumin/Globulin Ratio 0.4 % 09/02/16 06:46 Triglycerides 126 mg/dL (2-149) 08/30/16 12:09 Cholesterol 106 mg/dL (50-199) 08/30/16 12:09 LDL Cholesterol Direct 74 mg/dL (50-130) 08/30/16 12:09 HDL Cholesterol 7 mg/dL (40-59) L 08/30/16 12:09 Cholesterol/HDL Ratio 15.14 % 08/30/16 12:09 Urine Color Yellow (Yellow) 08/29/16 Unknown Urine Turbidity Clear (Clear) 08/29/16 Unknown Urine pH 6.0 (5.0-7.0) 08/29/16 Unknown Ur Specific [place] 1.027 (1.003-1.030) 08/29/16 Unknown Urine Protein 100 mg/dl mg/dL (Negative) 08/29/16 Unknown Urine Glucose (UA) >=500 mg/dL (Negative) 08/29/16 Unknown Urine Ketones Neg mg/dL (Negative) 08/29/16 Unknown Urine Blood Mod (Negative) 08/29/16 Unknown Urine Nitrite Neg (Negative) 08/29/16 Unknown Urine Bilirubin Neg (Negative) 08/29/16 Unknown Urine Urobilinogen 4.0 mg/dL (<2.0) 08/29/16 Unknown Ur Leukocyte Esterase Neg (Negative) 08/29/16 Unknown Urine WBC (Auto) 3.0 /HPF (0.0-6.0) 08/29/16 Unknown Urine RBC (Auto) 7.0 /HPF (0.0-6.0) 08/29/16 Unknown U Epithel Cells (Auto) 2.0 /HPF (0-13.0) 08/29/16 Unknown Urine Bacteria (Auto) 1+ /HPF (Negative) 08/29/16 Unknown Urine Mucus Few /HPF 08/29/16 Unknown Urine HCG, Qual Negative (Negative) 08/30/16 Unknown Vancomycin Trough 22.8 ug/mL (5.0-20.0) H 09/03/16 19:21 Ketones 0.5 mmol/L (-0.28) H 08/30/16 07:07 Blood Type O POSITIVE 09/06/16 10:20 Antibody Screen Negative 09/06/16 10:20 Crossmatch See Detail 09/06/16 10:20
--- NOTE | 2016-09-06 16:31 | Progress Note ---
Subjective Date of service: 09/06/16 Principal diagnosis: sepsis Interval history: Patient seen and evaluated. No new complaints. PHYSICAL EXAM VS - Afebrile chest - good air entry cvs - s1s2 abd - wound vac in place. LABS - Reviewed. See lab section no growth so far from cultures. ASSESSMENT 1. Sepsis 2. Abdominal wall abscess s/p debridement. 4. DM2 4. Obesity RECOMMENDATION 1. CONTINUE VANCOMYCIN. Adjust dosing per renal function 2. cbc/bmp in am 3. Continue wound care. 4. d/w surgery. Patient may need further debridement and will also need plastic surgery input. Objective - Constitutional Vitals: Vital Signs Temp Pulse Resp BP Pulse Ox 98.8 F 78 20 141/81 98 09/06/16 12:00 09/06/16 12:00 09/06/16 12:00 09/06/16 12:00 09/06/16 07:30 Temperature -Last 24 Hours Temperature 98.8 F Temperature 98.2 F Temperature 98.6 F Temperature 98.2 F Temperature 98.2 F - Labs CBC & Chem 7: 09/06/16 04:32 09/06/16 04:32 Labs: Abnormal lab results 09/05/16 09/05/16 09/06/16 Range/Units 16:47 22:06 04:32 WBC 13.4 H (4.5-11.0) K/mm3 RBC 2.78 L (3.65-5.03) M/mm3 Hgb 7.1 L (10.1-14.3) gm/dl Hct 22.3 L (30.3-42.9) % MCH 26 L (28-32) pg RDW 15.9 H (13.2-15.2) % Plt Count 472 H (140-440) K/mm3 Monocytes # (Manual) 0.9 H (0.0-0.8) K/mm3 Eosinophils # (Manual) 0.5 H (0.0-0.4) K/mm3 Creatinine (0.7-1.2) mg/dL Glucose (65-100) mg/dL POC Glucose 222 H 289 H (70-105) Calcium (8.4-10.2) mg/dL Crossmatch 09/06/16 09/06/16 09/06/16 Range/Units 04:32 07:13 10:20 WBC (4.5-11.0) K/mm3 RBC (3.65-5.03) M/mm3 Hgb (10.1-14.3) gm/dl Hct (30.3-42.9) % MCH (28-32) pg RDW (13.2-15.2) % Plt Count (140-440) K/mm3 Monocytes # (Manual) (0.0-0.8) K/mm3 Eosinophils # (Manual) (0.0-0.4) K/mm3 Creatinine 1.6 H (0.7-1.2) mg/dL Glucose 169 H (65-100) mg/dL POC Glucose 188 H (70-105) Calcium 7.8 L (8.4-10.2) mg/dL Crossmatch See Detail
[2016-09-07 05:46] LABS: Basophils % (Auto) 0.5 % (0.0-1.8); Eosinophils % (Auto) 1.7 % (0.0-4.3); Hematocrit 23.1 % (30.3-42.9); Hemoglobin 7.3 gm/dl (10.1-14.3); Mean Corpuscular HGB Conc 32 % (30-34); Mean Corpuscular Volume 80 fl (79-97); Platelet Count 513 K/mm3 (140-440); Red Blood Count 2.88 M/mm3 (3.65-5.03); Red Cell Distribution Width 15.4 % (13.2-15.2); White Blood Count 12.2 K/mm3 (4.5-11.0)
[2016-09-07 05:58] LABS: Mean Corpuscular Hemoglobin 26 pg (28-32)
[2016-09-07] MEDS: ZOSYN/NS 4.5GM/100ML 4.5 GM/100 ML VIAL IV SCH ×3 (06:00→22:10)
[2016-09-07 06:01] LABS: BUN/Creatinine Ratio 8.82; Calcium 7.9 mg/dL (8.4-10.2); Chloride 108.4 mmol/L (98-107)
[2016-09-07] MEDS: MORPHINE IV PRN ×2 (08:03→18:26)
[2016-09-07] MEDS: ASPIRIN PO SCH (09:30)
[2016-09-07] MEDS: HEPARIN SUB-Q SCH ×2 (09:39→22:11)
--- NOTE | 2016-09-07 15:21 | Progress Note ---
Assessment and Plan Assessment and plan: Abscess with cellulitis of the anterior abdominal wall right lower quadrant: * S/P I&D on 09/01, and Wound debridement on 09/04 with replacement of wound vac , * wound culture on 09/01 growing gram-negative rods, repeat cultures are negative for any organism * changed abx to vanc and zosyn by ID, d/c vanc today as Cx grew gm negative fawn and Cr trending up * Ordered for a PICC line, not placed yet * plan for further debridement Sepsis: * From anterior abdominal wall abscess. * continue sepsis protocol, continue abx Diabetes mellitus type 2: * Continue insulin long acting and Sliding-scale * ADA diet Diabetic peripheral neuropathy: * Continue with gabapentin. Obstructive sleep apnea: * continue CPAP QHS SHABBIR, Cr 1.7 today - could be due to vasomotor nephropathy -Continue iv fluid, monitor renal function. - d/c vanc Anemia, likely due to blood loss -Transfuse 1 unit packed RBC pending Disposition: LTAC fo better wound care, CM notified Microbiology 09/01/16 14:53 Abdomen Surgical Culture - Preliminary 09/04/16 Unknown Abdomen Surgical Culture - Preliminary 09/04/16 Unknown Abdomen Surgical Biopsy Culture - Preliminary 09/01/16 14:53 Abdomen Anaerobic Culture - Preliminary 08/30/16 07:07 Peripheral/Venous Blood Culture - Final NO GROWTH AFTER 5 DAYS 08/30/16 07:07 Peripheral/Venous Blood Culture - Final NO GROWTH AFTER 5 DAYS History Interval history: Patient seen and examined. Medical records and medication list reviewed. No acute event overnight noted by the RN. doing well, Hb 7.3 today, did not get transfusion yet Patient may need further debridement and will also need plastic surgery input. Discussed plan of care at bedside with patient. Hospitalist Physical - Physical exam Narrative exam: General: Patient appears well in no distress, obese HEENT: MMM, EOMI cardiac: S1-S2 heard lungs: clear to auscultation, abdomen: soft, nontender, nondistended bowel sounds positive Skin: Wound VAC is seen over the right pannus, has surrounding induration, interval decrease in warmth and tenderness extremities: no edema clubbing or cyanosis Neuro: no focal deficit Psych: appropriate behavior and mood, cognition intact - Constitutional Vitals: Temp Pulse Resp BP Pulse Ox 97.1 F L 75 18 139/80 99 09/07/16 11:30 09/07/16 11:30 09/07/16 11:30 09/07/16 11:30 09/07/16 08:10 General appearance: Present: no acute distress, obese Results - Labs CBC & Chem 7: 09/07/16 05:11 09/07/16 05:11 Labs: Laboratory Last Values WBC 12.2 K/mm3 (4.5-11.0) H 09/07/16 05:11 RBC 2.88 M/mm3 (3.65-5.03) L 09/07/16 05:11 Hgb 7.3 gm/dl (10.1-14.3) L 09/07/16 05:11 Hct 23.1 % (30.3-42.9) L 09/07/16 05:11 MCV 80 fl (79-97) 09/07/16 05:11 MCH 26 pg (28-32) L 09/07/16 05:11 MCHC 32 % (30-34) 09/07/16 05:11 RDW 15.4 % (13.2-15.2) H 09/07/16 05:11 Plt Count 513 K/mm3 (140-440) H 09/07/16 05:11 Lymph % (Auto) 13.8 % (13.4-35.0) 09/07/16 05:11 [place] % (Auto) 9.0 % (0.0-7.3) H 09/07/16 05:11 Eos % (Auto) 1.7 % (0.0-4.3) 09/07/16 05:11 Baso % (Auto) 0.5 % (0.0-1.8) 09/07/16 05:11 Lymph # 1.7 K/mm3 (1.2-5.4) 09/07/16 05:11 [place] # 1.1 K/mm3 (0.0-0.8) H 09/07/16 05:11 Eos # 0.2 K/mm3 (0.0-0.4) 09/07/16 05:11 Baso # 0.1 K/mm3 (0.0-0.1) 09/07/16 05:11 Add Manual Diff Complete 09/06/16 04:32 Total Counted 100 09/06/16 04:32 Seg Neutrophils % 75.0 % (40.0-70.0) H 09/07/16 05:11 Seg Neuts % (Manual) 57.0 % (40.0-70.0) 09/06/16 04:32 Band Neutrophils % 6.0 % 09/06/16 04:32 Lymphocytes % (Manual) 26.0 % (13.4-35.0) 09/06/16 04:32 Reactive Lymphs % (Man) 0 % 09/06/16 04:32 Monocytes % (Manual) 7.0 % (0.0-7.3) 09/06/16 04:32 Eosinophils % (Manual) 4.0 % (0.0-4.3) 09/06/16 04:32 Basophils % (Manual) 0 % (0.0-1.8) 09/06/16 04:32 Metamyelocytes % 0 % 09/06/16 04:32 Myelocytes % 0 % 09/06/16 04:32 Promyelocytes % 0 % 09/06/16 04:32 Blast Cells % 0 % 09/06/16 04:32 Nucleated RBC % Not Reportable 09/06/16 04:32 Seg Neutrophils # 9.2 K/mm3 (1.8-7.7) H 09/07/16 05:11 Seg Neutrophils # Man 7.6 K/mm3 (1.8-7.7) 09/06/16 04:32 Band Neutrophils # 0.8 K/mm3 09/06/16 04:32 Lymphocytes # (Manual) 3.5 K/mm3 (1.2-5.4) 09/06/16 04:32 Abs React Lymphs (Man) 0.0 K/mm3 09/06/16 04:32 Monocytes # (Manual) 0.9 K/mm3 (0.0-0.8) H 09/06/16 04:32 Eosinophils # (Manual) 0.5 K/mm3 (0.0-0.4) H 09/06/16 04:32 Basophils # (Manual) 0.0 K/mm3 (0.0-0.1) 09/06/16 04:32 Metamyelocytes # 0.0 K/mm3 09/06/16 04:32 Myelocytes # 0.0 K/mm3 09/06/16 04:32 Promyelocytes # 0.0 K/mm3 09/06/16 04:32 Blast Cells # 0.0 K/mm3 09/06/16 04:32 WBC Morphology Not Reportable 09/06/16 04:32 Hypersegmented Neuts Not Reportable 09/06/16 04:32 Hyposegmented Neuts Not Reportable 09/06/16 04:32 Hypogranular Neuts Not Reportable 09/06/16 04:32 Smudge Cells Not Reportable 09/06/16 04:32 Toxic Granulation Not Reportable 09/06/16 04:32 Toxic Vacuolation Not Reportable 09/06/16 04:32 Dohle Bodies Not Reportable 09/06/16 04:32 Pelger-Huet Anomaly Not Reportable 09/06/16 04:32 Eddy Rods Not Reportable 09/06/16 04:32 Platelet Estimate Appears normal 09/06/16 04:32 Clumped Platelets Not Reportable 09/06/16 04:32 Plt Clumps, EDTA Not Reportable 09/06/16 04:32 Large Platelets Not Reportable 09/06/16 04:32 Giant Platelets Not Reportable 09/06/16 04:32 Platelet Satelliting Not Reportable 09/06/16 04:32 Plt Morphology Comment Not Reportable 09/06/16 04:32 RBC Morphology Not Reportable 09/06/16 04:32 Dimorphic RBCs Not Reportable 09/06/16 04:32 Polychromasia Not Reportable 09/06/16 04:32 Hypochromasia Few 09/06/16 04:32 Poikilocytosis Not Reportable 09/06/16 04:32 Anisocytosis 1+ 09/06/16 04:32 Microcytosis Not Reportable 09/06/16 04:32 Macrocytosis Not Reportable 09/06/16 04:32 Spherocytes Not Reportable 09/06/16 04:32 Pappenheimer Bodies Not Reportable 09/06/16 04:32 Sickle Cells Not Reportable 09/06/16 04:32 Target Cells Not Reportable 09/06/16 04:32 Tear Drop Cells Not Reportable 09/06/16 04:32 Ovalocytes Not Reportable 09/06/16 04:32 Helmet Cells Not Reportable 09/06/16 04:32 [place] Bodies Not Reportable 09/06/16 04:32 [place] Rings Not Reportable 09/06/16 04:32 [place] Cells Not Reportable 09/06/16 04:32 Bite Cells Not Reportable 09/06/16 04:32 Crenated Cell Not Reportable 09/06/16 04:32 Elliptocytes Not Reportable 09/06/16 04:32 Acanthocytes (Spur) Not Reportable 09/06/16 04:32 Rouleaux Not Reportable 09/06/16 04:32 Hemoglobin C Crystals Not Reportable 09/06/16 04:32 Schistocytes Not Reportable 09/06/16 04:32 Malaria parasites Not Reportable 09/06/16 04:32 [place] Bodies Not Reportable 09/06/16 04:32 Hem Pathologist Commnt No 09/06/16 04:32 VBG pH 7.368 (7.320-7.420) 08/30/16 07:07 Sodium 141 mmol/L (137-145) 09/07/16 05:11 Potassium 5.0 mmol/L (3.6-5.0) 09/07/16 05:11 Chloride 108.4 mmol/L (98-107) H 09/07/16 05:11 Carbon Dioxide 22 mmol/L (22-30) 09/07/16 05:11 Anion Gap 16 mmol/L 09/07/16 05:11 BUN 15 mg/dL (7-17) 09/07/16 05:11 Creatinine 1.7 mg/dL (0.7-1.2) H 09/07/16 05:11 Estimated GFR 40 ml/min 09/07/16 05:11 BUN/Creatinine Ratio 8.82 % 09/07/16 05:11 Glucose 216 mg/dL (65-100) H 09/07/16 05:11 POC Glucose 227 (70-105) H 09/07/16 11:16 Hemoglobin A1c 9.7 % (4-6) H 08/30/16 12:09 Lactic Acid 0.9 mmol/L (0.7-2.0) 09/02/16 10:49 Calcium 7.9 mg/dL (8.4-10.2) L 09/07/16 05:11 Phosphorus 2.7 mg/dL (2.5-4.5) 08/31/16 05:50 Magnesium 2.1 mg/dL (1.7-2.3) 08/31/16 05:50 Total Bilirubin 0.4 mg/dL (0.1-1.2) 09/02/16 06:46 AST 26 units/L (5-40) 09/02/16 06:46 ALT 15 units/L (7-56) 09/02/16 06:46 Alkaline Phosphatase 135 units/L (35-129) H 09/02/16 06:46 Total Protein 6.1 g/dL (6.3-8.2) L 09/02/16 06:46 Albumin 1.8 g/dL (3.9-5) L 09/02/16 06:46 Albumin/Globulin Ratio 0.4 % 09/02/16 06:46 Triglycerides 126 mg/dL (2-149) 08/30/16 12:09 Cholesterol 106 mg/dL (50-199) 08/30/16 12:09 LDL Cholesterol Direct 74 mg/dL (50-130) 08/30/16 12:09 HDL Cholesterol 7 mg/dL (40-59) L 08/30/16 12:09 Cholesterol/HDL Ratio 15.14 % 08/30/16 12:09 Urine Color Yellow (Yellow) 08/29/16 Unknown Urine Turbidity Clear (Clear) 08/29/16 Unknown Urine pH 6.0 (5.0-7.0) 08/29/16 Unknown Ur Specific [place] 1.027 (1.003-1.030) 08/29/16 Unknown Urine Protein 100 mg/dl mg/dL (Negative) 08/29/16 Unknown Urine Glucose (UA) >=500 mg/dL (Negative) 08/29/16 Unknown Urine Ketones Neg mg/dL (Negative) 08/29/16 Unknown Urine Blood Mod (Negative) 08/29/16 Unknown Urine Nitrite Neg (Negative) 08/29/16 Unknown Urine Bilirubin Neg (Negative) 08/29/16 Unknown Urine Urobilinogen 4.0 mg/dL (<2.0) 08/29/16 Unknown Ur Leukocyte Esterase Neg (Negative) 08/29/16 Unknown Urine WBC (Auto) 3.0 /HPF (0.0-6.0) 08/29/16 Unknown Urine RBC (Auto) 7.0 /HPF (0.0-6.0) 08/29/16 Unknown U Epithel Cells (Auto) 2.0 /HPF (0-13.0) 08/29/16 Unknown Urine Bacteria (Auto) 1+ /HPF (Negative) 08/29/16 Unknown Urine Mucus Few /HPF 08/29/16 Unknown Urine HCG, Qual Negative (Negative) 08/30/16 Unknown Vancomycin Trough 33.0 ug/mL (5.0-20.0) H 09/07/16 14:25 Ketones 0.5 mmol/L (-0.28) H 08/30/16 07:07 Blood Type O POSITIVE 09/06/16 10:20 Antibody Screen Negative 09/06/16 10:20 Crossmatch See Detail 09/06/16 10:20
--- NOTE | 2016-09-07 16:34 | Progress Note ---
Subjective Date of service: 09/07/16 Principal diagnosis: sepsis Interval history: Patient seen and evaluated. No new complaints. PHYSICAL EXAM VS - Afebrile chest - good air entry cvs - s1s2 abd - wound vac in place. LABS - Reviewed. See lab section no growth so far from cultures. ASSESSMENT 1. Sepsis 2. Abdominal wall abscess s/p debridement. 4. DM2 4. Obesity RECOMMENDATION 1. iv abx 2. cbc/bmp in am 3. Continue wound care. 4. d/w surgery. Patient may need further debridement and will also need plastic surgery input. Objective - Constitutional Vitals: Vital Signs Temp Pulse Resp BP Pulse Ox 97.1 F L 75 18 139/80 99 09/07/16 11:30 09/07/16 11:30 09/07/16 11:30 09/07/16 11:30 09/07/16 08:10 Temperature -Last 24 Hours Temperature 97.1 F Temperature 97.1 F Temperature 99.3 F Temperature 98.5 F Temperature 98.4 F - Labs CBC & Chem 7: 09/07/16 05:11 09/07/16 05:11 Labs: Abnormal lab results 09/06/16 09/06/16 09/06/16 Range/Units 11:41 16:29 21:44 WBC (4.5-11.0) K/mm3 RBC (3.65-5.03) M/mm3 Hgb (10.1-14.3) gm/dl Hct (30.3-42.9) % MCH (28-32) pg RDW (13.2-15.2) % Plt Count (140-440) K/mm3 [place] % (Auto) (0.0-7.3) % [place] # (0.0-0.8) K/mm3 Seg Neutrophils % (40.0-70.0) % Seg Neutrophils # (1.8-7.7) K/mm3 Chloride (98-107) mmol/L Creatinine (0.7-1.2) mg/dL Glucose (65-100) mg/dL POC Glucose 269 H 253 H 314 H (70-105) Calcium (8.4-10.2) mg/dL Vancomycin Trough (5.0-20.0) ug/mL 09/07/16 09/07/16 09/07/16 Range/Units 05:11 05:11 07:06 WBC 12.2 H (4.5-11.0) K/mm3 RBC 2.88 L (3.65-5.03) M/mm3 Hgb 7.3 L (10.1-14.3) gm/dl Hct 23.1 L (30.3-42.9) % MCH 26 L (28-32) pg RDW 15.4 H (13.2-15.2) % Plt Count 513 H (140-440) K/mm3 [place] % (Auto) 9.0 H (0.0-7.3) % [place] # 1.1 H (0.0-0.8) K/mm3 Seg Neutrophils % 75.0 H (40.0-70.0) % Seg Neutrophils # 9.2 H (1.8-7.7) K/mm3 Chloride 108.4 H (98-107) mmol/L Creatinine 1.7 H (0.7-1.2) mg/dL Glucose 216 H (65-100) mg/dL POC Glucose 226 H (70-105) Calcium 7.9 L (8.4-10.2) mg/dL Vancomycin Trough (5.0-20.0) ug/mL 09/07/16 09/07/16 Range/Units 11:16 14:25 WBC (4.5-11.0) K/mm3 RBC (3.65-5.03) M/mm3 Hgb (10.1-14.3) gm/dl Hct (30.3-42.9) % MCH (28-32) pg RDW (13.2-15.2) % Plt Count (140-440) K/mm3 [place] % (Auto) (0.0-7.3) % [place] # (0.0-0.8) K/mm3 Seg Neutrophils % (40.0-70.0) % Seg Neutrophils # (1.8-7.7) K/mm3 Chloride (98-107) mmol/L Creatinine (0.7-1.2) mg/dL Glucose (65-100) mg/dL POC Glucose 227 H (70-105) Calcium (8.4-10.2) mg/dL Vancomycin Trough 33.0 H (5.0-20.0) ug/mL
[2016-09-07] MEDS ORDERED: VANCOMYCIN PHARMACY TO DOSE IV SCH (17:00)
[2016-09-07] MEDS ORDERED: VANCOMYCIN VIAL 1,500 MG in NACL 0.9% 500 ML 500 ML IV SCH (20:00)
[2016-09-07] MEDS: LEVEMIR SUB-Q SCH (22:11)
[2016-09-08] MEDS: PERCOCET 5/325 PO PRN (04:48)
[2016-09-08] MEDS: ZOSYN/NS 4.5GM/100ML 4.5 GM/100 ML VIAL IV SCH ×3 (07:09→21:20)
[2016-09-08 07:30] LABS: BUN/Creatinine Ratio 7.64; Potassium 4.9 mmol/L (3.6-5.0)
[2016-09-08 07:48] LABS: Basophils % (Auto) 0.6 % (0.0-1.8); Eosinophils % (Auto) 1.1 % (0.0-4.3); Hematocrit 22.1 % (30.3-42.9); Hemoglobin 7.1 gm/dl (10.1-14.3); Mean Corpuscular HGB Conc 32 % (30-34); Mean Corpuscular Volume 78 fl (79-97); Platelet Count 498 K/mm3 (140-440); Red Blood Count 2.83 M/mm3 (3.65-5.03); Red Cell Distribution Width 15.8 % (13.2-15.2)
[2016-09-08 07:50] LABS: Mean Corpuscular Hemoglobin 25 pg (28-32)
[2016-09-08] MEDS: ASPIRIN PO SCH (09:04)
[2016-09-08] MEDS: HEPARIN SUB-Q SCH ×2 (10:00→21:21)
--- NOTE | 2016-09-08 12:23 | Progress Note ---
Subjective Narrative: more areas of induration medial to the wound , BS 128 this AM will need further RADICAL debridement abd plasty , will see Dr SELLERS opinion . Objective Vital Signs - 12hr 09/08/16 09/08/16 09/08/16 04:00 04:48 07:35 Temperature 98.3 F 98.2 F Pulse Rate [ 74 Left Radial] Pulse Rate [ 79 Right Radial] Respiratory 20 20 20 Rate Blood Pressure 144/82 126/72 [Right Arm] O2 Sat by Pulse 99 98 Oximetry 09/08/16 09/08/16 08:41 10:00 Temperature Pulse Rate [ 72 Left Radial] Pulse Rate [ Right Radial] Respiratory Rate Blood Pressure [Right Arm] O2 Sat by Pulse 98 Oximetry - Labs 09/08/16 06:39 09/08/16 06:39 Diabetes panel 09/08/16 Range/Units 06:39 Sodium 139 (137-145) mmol/L Potassium 4.9 (3.6-5.0) mmol/L Chloride 106.0 (98-107) mmol/L Carbon Dioxide 24 (22-30) mmol/L BUN 13 (7-17) mg/dL Creatinine 1.7 H (0.7-1.2) mg/dL Glucose 132 H (65-100) mg/dL Calcium 8.0 L (8.4-10.2) mg/dL Calcium panel 09/08/16 Range/Units 06:39 Calcium 8.0 L (8.4-10.2) mg/dL Pituitary panel 09/08/16 Range/Units 06:39 Sodium 139 (137-145) mmol/L Potassium 4.9 (3.6-5.0) mmol/L Chloride 106.0 (98-107) mmol/L Carbon Dioxide 24 (22-30) mmol/L BUN 13 (7-17) mg/dL Creatinine 1.7 H (0.7-1.2) mg/dL Glucose 132 H (65-100) mg/dL Calcium 8.0 L (8.4-10.2) mg/dL Adrenal panel 09/08/16 Range/Units 06:39 Sodium 139 (137-145) mmol/L Potassium 4.9 (3.6-5.0) mmol/L Chloride 106.0 (98-107) mmol/L Carbon Dioxide 24 (22-30) mmol/L BUN 13 (7-17) mg/dL Creatinine 1.7 H (0.7-1.2) mg/dL Glucose 132 H (65-100) mg/dL Calcium 8.0 L (8.4-10.2) mg/dL
--- NOTE | 2016-09-08 12:47 | Progress Note ---
Subjective Date of service: 09/08/16 Principal diagnosis: sepsis Interval history: Patient seen and evaluated. No new complaints. PHYSICAL EXAM VS - Afebrile chest - good air entry cvs - s1s2 abd - wound vac in place. LABS - Reviewed. See lab section no growth so far from cultures. ASSESSMENT 1. Sepsis 2. Abdominal wall abscess s/p debridement. 4. DM2 4. Obesity RECOMMENDATION 1. iv abx 2. cbc/bmp in am 3. Continue wound care. 4 awaits plastic surgery evaluation Objective - Constitutional Vitals: Vital Signs Temp Pulse Resp BP Pulse Ox 98.2 F 72 20 126/72 98 09/08/16 07:35 09/08/16 08:41 09/08/16 07:35 09/08/16 07:35 09/08/16 10:00 Temperature -Last 24 Hours Temperature 98.2 F Temperature 98.3 F Temperature 98.4 F Temperature 98.3 F Temperature 98.1 F - Labs CBC & Chem 7: 09/08/16 06:39 09/08/16 06:39 Labs: Abnormal lab results 09/07/16 09/07/16 09/07/16 Range/Units 14:25 17:00 21:09 WBC (4.5-11.0) K/mm3 RBC (3.65-5.03) M/mm3 Hgb (10.1-14.3) gm/dl Hct (30.3-42.9) % MCV (79-97) fl MCH (28-32) pg RDW (13.2-15.2) % Plt Count (140-440) K/mm3 [place] % (Auto) (0.0-7.3) % [place] # (0.0-0.8) K/mm3 Seg Neutrophils % (40.0-70.0) % Seg Neutrophils # (1.8-7.7) K/mm3 Creatinine (0.7-1.2) mg/dL Glucose (65-100) mg/dL POC Glucose 155 H 216 H (70-105) Calcium (8.4-10.2) mg/dL Vancomycin Trough 33.0 H (5.0-20.0) ug/mL 09/08/16 09/08/16 09/08/16 Range/Units 06:39 06:39 08:02 WBC 13.0 H (4.5-11.0) K/mm3 RBC 2.83 L (3.65-5.03) M/mm3 Hgb 7.1 L (10.1-14.3) gm/dl Hct 22.1 L (30.3-42.9) % MCV 78 L (79-97) fl MCH 25 L (28-32) pg RDW 15.8 H (13.2-15.2) % Plt Count 498 H (140-440) K/mm3 [place] % (Auto) 8.1 H (0.0-7.3) % [place] # 1.1 H (0.0-0.8) K/mm3 Seg Neutrophils % 74.3 H (40.0-70.0) % Seg Neutrophils # 9.6 H (1.8-7.7) K/mm3 Creatinine 1.7 H (0.7-1.2) mg/dL Glucose 132 H (65-100) mg/dL POC Glucose 116 H (70-105) Calcium 8.0 L (8.4-10.2) mg/dL Vancomycin Trough (5.0-20.0) ug/mL 09/08/16 Range/Units 11:16 WBC (4.5-11.0) K/mm3 RBC (3.65-5.03) M/mm3 Hgb (10.1-14.3) gm/dl Hct (30.3-42.9) % MCV (79-97) fl MCH (28-32) pg RDW (13.2-15.2) % Plt Count (140-440) K/mm3 [place] % (Auto) (0.0-7.3) % [place] # (0.0-0.8) K/mm3 Seg Neutrophils % (40.0-70.0) % Seg Neutrophils # (1.8-7.7) K/mm3 Creatinine (0.7-1.2) mg/dL Glucose (65-100) mg/dL POC Glucose 124 H (70-105) Calcium (8.4-10.2) mg/dL Vancomycin Trough (5.0-20.0) ug/mL
--- NOTE | 2016-09-08 13:18 | Progress Note ---
Assessment and Plan Assessment and plan: Patient is a 41-year-old lady was a history of diabetes mellitus, developed redness with abscess in the right lower quadrants of the anterior abdominal wall. She was placed on 2 antibiotics as outpatient but was unable to tolerate PO meds. At emergency department patient found to be with abscess, cellulitis of the anterior abdominal wall right lower quadrant and BG of 440. Abscess with cellulitis of the anterior abdominal wall right lower quadrant: * S/P I&D on 09/01, and Wound debridement on 09/04 with replacement of wound vac , * wound culture on 09/01 growing gram-negative rods, repeat cultures are negative for any organism * Placed on vanc and zosyn by ID, d/c vanc on 09/07 as Cx grew gm negative fawn and Cr trending up * Ordered for a PICC line, not placed yet * plan for further debridement and evaluation by plastic surgeon Sepsis: * From anterior abdominal wall abscess. * continue sepsis protocol, continue abx Diabetes mellitus type 2: * Continue insulin long acting and Sliding-scale * ADA diet Diabetic peripheral neuropathy: * Continue with gabapentin. Obstructive sleep apnea: * continue CPAP QHS SHABBIR, Cr 1.7 today - could be due to vasomotor nephropathy -Continue iv fluid, monitor renal function. - d/c vanc Anemia, likely due to blood loss -Transfuse 1 unit packed RBC pending, reordered today - Hemoglobin 7.1 this morning Disposition: LTAC fo better wound care, CM notified Microbiology 09/04/16 Unknown Abdomen Surgical Biopsy Culture - Preliminary 09/01/16 14:53 Abdomen Surgical Culture - Final 09/04/16 Unknown Abdomen Surgical Culture - Final 09/04/16 Unknown Abdomen Anaerobic Culture - Preliminary 09/01/16 14:53 Abdomen Anaerobic Culture - Preliminary 08/30/16 07:07 Peripheral/Venous Blood Culture - Final NO GROWTH AFTER 5 DAYS 08/30/16 07:07 Peripheral/Venous Blood Culture - Final NO GROWTH AFTER 5 DAYS History Interval history: Patient seen and examined. Medical records and medication list reviewed. No acute event overnight noted by the RN. doing well, Hb 7.3 today, did not get transfusion yet Patient may need further debridement and will also need plastic surgery input. Dr. Saini to see her today Discussed plan of care at bedside with patient. Hospitalist Physical - Physical exam Narrative exam: General: Patient appears well in no distress, obese HEENT: MMM, EOMI cardiac: S1-S2 heard lungs: clear to auscultation, abdomen: soft, nontender, nondistended bowel sounds positive Skin: Wound VAC is seen over the right pannus, has surrounding induration, interval decrease in warmth and tenderness extremities: no edema clubbing or cyanosis Neuro: no focal deficit Psych: appropriate behavior and mood, cognition intact - Constitutional Vitals: Temp Pulse Resp BP Pulse Ox 98.2 F 72 20 126/72 98 09/08/16 07:35 09/08/16 08:41 09/08/16 07:35 09/08/16 07:35 09/08/16 10:00 General appearance: Present: no acute distress, obese Results - Labs CBC & Chem 7: 09/08/16 06:39 09/08/16 06:39 Labs: Laboratory Last Values WBC 13.0 K/mm3 (4.5-11.0) H 09/08/16 06:39 RBC 2.83 M/mm3 (3.65-5.03) L 09/08/16 06:39 Hgb 7.1 gm/dl (10.1-14.3) L 09/08/16 06:39 Hct 22.1 % (30.3-42.9) L 09/08/16 06:39 MCV 78 fl (79-97) L 09/08/16 06:39 MCH 25 pg (28-32) L 09/08/16 06:39 MCHC 32 % (30-34) 09/08/16 06:39 RDW 15.8 % (13.2-15.2) H 09/08/16 06:39 Plt Count 498 K/mm3 (140-440) H 09/08/16 06:39 Lymph % (Auto) 15.9 % (13.4-35.0) 09/08/16 06:39 [place] % (Auto) 8.1 % (0.0-7.3) H 09/08/16 06:39 Eos % (Auto) 1.1 % (0.0-4.3) 09/08/16 06:39 Baso % (Auto) 0.6 % (0.0-1.8) 09/08/16 06:39 Lymph # 2.1 K/mm3 (1.2-5.4) 09/08/16 06:39 [place] # 1.1 K/mm3 (0.0-0.8) H 09/08/16 06:39 Eos # 0.1 K/mm3 (0.0-0.4) 09/08/16 06:39 Baso # 0.1 K/mm3 (0.0-0.1) 09/08/16 06:39 Add Manual Diff Complete 09/06/16 04:32 Total Counted 100 09/06/16 04:32 Seg Neutrophils % 74.3 % (40.0-70.0) H 09/08/16 06:39 Seg Neuts % (Manual) 57.0 % (40.0-70.0) 09/06/16 04:32 Band Neutrophils % 6.0 % 09/06/16 04:32 Lymphocytes % (Manual) 26.0 % (13.4-35.0) 09/06/16 04:32 Reactive Lymphs % (Man) 0 % 09/06/16 04:32 Monocytes % (Manual) 7.0 % (0.0-7.3) 09/06/16 04:32 Eosinophils % (Manual) 4.0 % (0.0-4.3) 09/06/16 04:32 Basophils % (Manual) 0 % (0.0-1.8) 09/06/16 04:32 Metamyelocytes % 0 % 09/06/16 04:32 Myelocytes % 0 % 09/06/16 04:32 Promyelocytes % 0 % 09/06/16 04:32 Blast Cells % 0 % 09/06/16 04:32 Nucleated RBC % Not Reportable 09/06/16 04:32 Seg Neutrophils # 9.6 K/mm3 (1.8-7.7) H 09/08/16 06:39 Seg Neutrophils # Man 7.6 K/mm3 (1.8-7.7) 09/06/16 04:32 Band Neutrophils # 0.8 K/mm3 09/06/16 04:32 Lymphocytes # (Manual) 3.5 K/mm3 (1.2-5.4) 09/06/16 04:32 Abs React Lymphs (Man) 0.0 K/mm3 09/06/16 04:32 Monocytes # (Manual) 0.9 K/mm3 (0.0-0.8) H 09/06/16 04:32 Eosinophils # (Manual) 0.5 K/mm3 (0.0-0.4) H 09/06/16 04:32 Basophils # (Manual) 0.0 K/mm3 (0.0-0.1) 09/06/16 04:32 Metamyelocytes # 0.0 K/mm3 09/06/16 04:32 Myelocytes # 0.0 K/mm3 09/06/16 04:32 Promyelocytes # 0.0 K/mm3 09/06/16 04:32 Blast Cells # 0.0 K/mm3 09/06/16 04:32 WBC Morphology Not Reportable 09/06/16 04:32 Hypersegmented Neuts Not Reportable 09/06/16 04:32 Hyposegmented Neuts Not Reportable 09/06/16 04:32 Hypogranular Neuts Not Reportable 09/06/16 04:32 Smudge Cells Not Reportable 09/06/16 04:32 Toxic Granulation Not Reportable 09/06/16 04:32 Toxic Vacuolation Not Reportable 09/06/16 04:32 Dohle Bodies Not Reportable 09/06/16 04:32 Pelger-Huet Anomaly Not Reportable 09/06/16 04:32 Eddy Rods Not Reportable 09/06/16 04:32 Platelet Estimate Appears normal 09/06/16 04:32 Clumped Platelets Not Reportable 09/06/16 04:32 Plt Clumps, EDTA Not Reportable 09/06/16 04:32 Large Platelets Not Reportable 09/06/16 04:32 Giant Platelets Not Reportable 09/06/16 04:32 Platelet Satelliting Not Reportable 09/06/16 04:32 Plt Morphology Comment Not Reportable 09/06/16 04:32 RBC Morphology Not Reportable 09/06/16 04:32 Dimorphic RBCs Not Reportable 09/06/16 04:32 Polychromasia Not Reportable 09/06/16 04:32 Hypochromasia Few 09/06/16 04:32 Poikilocytosis Not Reportable 09/06/16 04:32 Anisocytosis 1+ 09/06/16 04:32 Microcytosis Not Reportable 09/06/16 04:32 Macrocytosis Not Reportable 09/06/16 04:32 Spherocytes Not Reportable 09/06/16 04:32 Pappenheimer Bodies Not Reportable 09/06/16 04:32 Sickle Cells Not Reportable 09/06/16 04:32 Target Cells Not Reportable 09/06/16 04:32 Tear Drop Cells Not Reportable 09/06/16 04:32 Ovalocytes Not Reportable 09/06/16 04:32 Helmet Cells Not Reportable 09/06/16 04:32 [place] Bodies Not Reportable 09/06/16 04:32 [place] Rings Not Reportable 09/06/16 04:32 [place] Cells Not Reportable 09/06/16 04:32 Bite Cells Not Reportable 09/06/16 04:32 Crenated Cell Not Reportable 09/06/16 04:32 Elliptocytes Not Reportable 09/06/16 04:32 Acanthocytes (Spur) Not Reportable 09/06/16 04:32 Rouleaux Not Reportable 09/06/16 04:32 Hemoglobin C Crystals Not Reportable 09/06/16 04:32 Schistocytes Not Reportable 09/06/16 04:32 Malaria parasites Not Reportable 09/06/16 04:32 [place] Bodies Not Reportable 09/06/16 04:32 Hem Pathologist Commnt No 09/06/16 04:32 VBG pH 7.368 (7.320-7.420) 08/30/16 07:07 Sodium 139 mmol/L (137-145) 09/08/16 06:39 Potassium 4.9 mmol/L (3.6-5.0) 09/08/16 06:39 Chloride 106.0 mmol/L (98-107) 09/08/16 06:39 Carbon Dioxide 24 mmol/L (22-30) 09/08/16 06:39 Anion Gap 14 mmol/L 09/08/16 06:39 BUN 13 mg/dL (7-17) 09/08/16 06:39 Creatinine 1.7 mg/dL (0.7-1.2) H 09/08/16 06:39 Estimated GFR 40 ml/min 09/08/16 06:39 BUN/Creatinine Ratio 7.64 % 09/08/16 06:39 Glucose 132 mg/dL (65-100) H 09/08/16 06:39 POC Glucose 124 (70-105) H 09/08/16 11:16 Hemoglobin A1c 9.7 % (4-6) H 08/30/16 12:09 Lactic Acid 0.9 mmol/L (0.7-2.0) 09/02/16 10:49 Calcium 8.0 mg/dL (8.4-10.2) L 09/08/16 06:39 Phosphorus 2.7 mg/dL (2.5-4.5) 08/31/16 05:50 Magnesium 2.1 mg/dL (1.7-2.3) 08/31/16 05:50 Total Bilirubin 0.4 mg/dL (0.1-1.2) 09/02/16 06:46 AST 26 units/L (5-40) 09/02/16 06:46 ALT 15 units/L (7-56) 09/02/16 06:46 Alkaline Phosphatase 135 units/L (35-129) H 09/02/16 06:46 Total Protein 6.1 g/dL (6.3-8.2) L 09/02/16 06:46 Albumin 1.8 g/dL (3.9-5) L 09/02/16 06:46 Albumin/Globulin Ratio 0.4 % 09/02/16 06:46 Triglycerides 126 mg/dL (2-149) 08/30/16 12:09 Cholesterol 106 mg/dL (50-199) 08/30/16 12:09 LDL Cholesterol Direct 74 mg/dL (50-130) 08/30/16 12:09 HDL Cholesterol 7 mg/dL (40-59) L 08/30/16 12:09 Cholesterol/HDL Ratio 15.14 % 08/30/16 12:09 Urine Color Yellow (Yellow) 08/29/16 Unknown Urine Turbidity Clear (Clear) 08/29/16 Unknown Urine pH 6.0 (5.0-7.0) 08/29/16 Unknown Ur Specific [place] 1.027 (1.003-1.030) 08/29/16 Unknown Urine Protein 100 mg/dl mg/dL (Negative) 08/29/16 Unknown Urine Glucose (UA) >=500 mg/dL (Negative) 08/29/16 Unknown Urine Ketones Neg mg/dL (Negative) 08/29/16 Unknown Urine Blood Mod (Negative) 08/29/16 Unknown Urine Nitrite Neg (Negative) 08/29/16 Unknown Urine Bilirubin Neg (Negative) 08/29/16 Unknown Urine Urobilinogen 4.0 mg/dL (<2.0) 08/29/16 Unknown Ur Leukocyte Esterase Neg (Negative) 08/29/16 Unknown Urine WBC (Auto) 3.0 /HPF (0.0-6.0) 08/29/16 Unknown Urine RBC (Auto) 7.0 /HPF (0.0-6.0) 08/29/16 Unknown U Epithel Cells (Auto) 2.0 /HPF (0-13.0) 08/29/16 Unknown Urine Bacteria (Auto) 1+ /HPF (Negative) 08/29/16 Unknown Urine Mucus Few /HPF 08/29/16 Unknown Urine HCG, Qual Negative (Negative) 08/30/16 Unknown Vancomycin Trough 33.0 ug/mL (5.0-20.0) H 09/07/16 14:25 Random Vancomycin 25.4 ug/mL (0-40.0) 09/08/16 08:17 Ketones 0.5 mmol/L (-0.28) H 08/30/16 07:07 Blood Type O POSITIVE 09/06/16 10:20 Antibody Screen Negative 09/06/16 10:20 Crossmatch See Detail 09/06/16 10:20
[2016-09-08] MEDS: MORPHINE IV PRN ×2 (15:22→21:19)
[2016-09-08] MEDS: LEVEMIR SUB-Q SCH (21:28)
[2016-09-09] MEDS: PERCOCET 5/325 PO PRN ×2 (01:27→09:38)
[2016-09-09] MEDS: ZOSYN/NS 4.5GM/100ML 4.5 GM/100 ML VIAL IV SCH ×3 (06:47→21:47)
[2016-09-09 07:02] LABS: Basophils % (Auto) 0.7 % (0.0-1.8); Eosinophils % (Auto) 2.5 % (0.0-4.3); Hematocrit 26.5 % (30.3-42.9); Hemoglobin 8.5 gm/dl (10.1-14.3); Mean Corpuscular HGB Conc 32 % (30-34); Mean Corpuscular Volume 80 fl (79-97); Platelet Count 504 K/mm3 (140-440); Red Blood Count 3.32 M/mm3 (3.65-5.03); Red Cell Distribution Width 16.3 % (13.2-15.2); White Blood Count 10.8 K/mm3 (4.5-11.0)
[2016-09-09 07:03] LABS: Mean Corpuscular Hemoglobin 26 pg (28-32)
[2016-09-09 07:25] LABS: BUN/Creatinine Ratio 6.47; Calcium 8.4 mg/dL (8.4-10.2); Chloride 106.3 mmol/L (98-107); Potassium 4.9 mmol/L (3.6-5.0)
[2016-09-09] MEDS: HEPARIN SUB-Q SCH ×2 (09:09→21:47)
[2016-09-09] MEDS: ASPIRIN PO SCH (09:09)
--- NOTE | 2016-09-09 12:35 | Progress Note ---
Assessment and Plan Assessment and plan: Patient is a 41-year-old woman with a history of type II diabetes mellitus, morbid obesity BMI 58.4, chronic anemia, obstructive sleep apnea on CPAP and diabetic peripheral neuropathy who presented with abscess in the right lower quadrants of the anterior abdominal wall. She was placed on 2 antibiotics as outpatient but was unable to tolerate PO meds. In the emergency department, she was found to have abscess, cellulitis of the anterior abdominal wall right lower quadrant and BG of 440. Abscess with cellulitis of the anterior abdominal wall right lower quadrant: S/P I&D on 09/01, and Wound debridement on 09/04 with replacement of wound vac , wound culture on 09/01 growing gram-negative rods, repeat cultures are negative for any organism Placed on vanc and zosyn by ID, d/c vanc on 09/07 as Cx grew gm negative fawn and Cr trending up Ordered for a PICC line, not placed yet plan for further debridement and evaluation by plastic surgeon Sepsis, POA: From anterior abdominal wall abscess. continue sepsis protocol, continue abx Diabetes mellitus type 2: Continue insulin long acting and Sliding-scale ADA diet Diabetic peripheral neuropathy: Continue with gabapentin. Obstructive sleep apnea: continue CPAP QHS SHABBIR, resolved - could be due to vasomotor nephropathy -Continue iv fluid, monitor renal function. - d/c vanc Anemia, likely due to blood loss -Transfused 1 unit packed RBC pending, reordered today - Increased to Hemoglobin 8.5 Disposition: LTAC fo better wound care, CM notified Microbiology 09/04/16 Unknown Abdomen Surgical Biopsy Culture - Preliminary 09/01/16 14:53 Abdomen Surgical Culture - Final 09/04/16 Unknown Abdomen Surgical Culture - Final 09/04/16 Unknown Abdomen Anaerobic Culture - Preliminary 09/01/16 14:53 Abdomen Anaerobic Culture - Preliminary 08/30/16 07:07 Peripheral/Venous Blood Culture - Final NO GROWTH AFTER 5 DAYS 08/30/16 07:07 Peripheral/Venous Blood Culture - Final NO GROWTH AFTER 5 DAYS Await plastic surgery eval she may need more surgeries Ordered interventional radiology to place a PICC line for at least 3 weeks antibiotics, discussed with infectious disease DC the to LTAC once PICC line placed and cleared by surgery History Interval history: Patient seen and examined. Follow up on abdominal infection. Overnight uneventful. No cp, sob, n/v or severe headaches. Imaging, old records, testing, labs, nursing notes reviewed. Hospitalist Physical - Physical exam Narrative exam: GEN: WDWN, NAD, AWAKE, ALERT, ORIENTATED 3, BMI 58.4 HEENT: NCAT, PERRL, EOMI, OP CLEAR NECK: SUPPLE, NO THYROMEGALY, NO JVD, NO LAD CVS: RRR, NORMAL S1S2 LUNGS/CHEST: CTA B, NORMAL CHEST EXPANSION B, GOOD AIR ENTRY B ABD: SOFT, RIGHT LOWER QUADRANT EXTENSIVE OPEN ABDOMINAL WOUND WITH WOUND VAC IN PLACE, GBS, NO REBOUND OR GUARDING MSK: FROM X 4 EXTREMITIES NEURO: CN 2-12 GROSSLY INTACT, NO new FOCAL DEFICITS PSY: CALM - Constitutional Vitals: Temp Pulse Resp BP Pulse Ox 98 F 72 18 137/65 98 09/09/16 08:00 09/09/16 08:00 09/09/16 08:00 09/09/16 08:00 09/09/16 09:21 General appearance: Present: no acute distress, obese Results - Labs CBC & Chem 7: 09/09/16 06:26 09/09/16 06:26 Labs: Laboratory Last Values WBC 10.8 K/mm3 (4.5-11.0) 09/09/16 06:26 RBC 3.32 M/mm3 (3.65-5.03) L 09/09/16 06:26 Hgb 8.5 gm/dl (10.1-14.3) L 09/09/16 06:26 Hct 26.5 % (30.3-42.9) L 09/09/16 06:26 MCV 80 fl (79-97) 09/09/16 06:26 MCH 26 pg (28-32) L 09/09/16 06:26 MCHC 32 % (30-34) 09/09/16 06:26 RDW 16.3 % (13.2-15.2) H 09/09/16 06:26 Plt Count 504 K/mm3 (140-440) H 09/09/16 06:26 Lymph % (Auto) 15.4 % (13.4-35.0) 09/09/16 06:26 [place] % (Auto) 7.9 % (0.0-7.3) H 09/09/16 06:26 Eos % (Auto) 2.5 % (0.0-4.3) 09/09/16 06:26 Baso % (Auto) 0.7 % (0.0-1.8) 09/09/16 06:26 Lymph # 1.7 K/mm3 (1.2-5.4) 09/09/16 06:26 [place] # 0.9 K/mm3 (0.0-0.8) H 09/09/16 06:26 Eos # 0.3 K/mm3 (0.0-0.4) 09/09/16 06:26 Baso # 0.1 K/mm3 (0.0-0.1) 09/09/16 06:26 Add Manual Diff Complete 09/06/16 04:32 Total Counted 100 09/06/16 04:32 Seg Neutrophils % 73.5 % (40.0-70.0) H 09/09/16 06:26 Seg Neuts % (Manual) 57.0 % (40.0-70.0) 09/06/16 04:32 Band Neutrophils % 6.0 % 09/06/16 04:32 Lymphocytes % (Manual) 26.0 % (13.4-35.0) 09/06/16 04:32 Reactive Lymphs % (Man) 0 % 09/06/16 04:32 Monocytes % (Manual) 7.0 % (0.0-7.3) 09/06/16 04:32 Eosinophils % (Manual) 4.0 % (0.0-4.3) 09/06/16 04:32 Basophils % (Manual) 0 % (0.0-1.8) 09/06/16 04:32 Metamyelocytes % 0 % 09/06/16 04:32 Myelocytes % 0 % 09/06/16 04:32 Promyelocytes % 0 % 09/06/16 04:32 Blast Cells % 0 % 09/06/16 04:32 Nucleated RBC % Not Reportable 09/06/16 04:32 Seg Neutrophils # 8.0 K/mm3 (1.8-7.7) H 09/09/16 06:26 Seg Neutrophils # Man 7.6 K/mm3 (1.8-7.7) 09/06/16 04:32 Band Neutrophils # 0.8 K/mm3 09/06/16 04:32 Lymphocytes # (Manual) 3.5 K/mm3 (1.2-5.4) 09/06/16 04:32 Abs React Lymphs (Man) 0.0 K/mm3 09/06/16 04:32 Monocytes # (Manual) 0.9 K/mm3 (0.0-0.8) H 09/06/16 04:32 Eosinophils # (Manual) 0.5 K/mm3 (0.0-0.4) H 09/06/16 04:32 Basophils # (Manual) 0.0 K/mm3 (0.0-0.1) 09/06/16 04:32 Metamyelocytes # 0.0 K/mm3 09/06/16 04:32 Myelocytes # 0.0 K/mm3 09/06/16 04:32 Promyelocytes # 0.0 K/mm3 09/06/16 04:32 Blast Cells # 0.0 K/mm3 09/06/16 04:32 WBC Morphology Not Reportable 09/06/16 04:32 Hypersegmented Neuts Not Reportable 09/06/16 04:32 Hyposegmented Neuts Not Reportable 09/06/16 04:32 Hypogranular Neuts Not Reportable 09/06/16 04:32 Smudge Cells Not Reportable 09/06/16 04:32 Toxic Granulation Not Reportable 09/06/16 04:32 Toxic Vacuolation Not Reportable 09/06/16 04:32 Dohle Bodies Not Reportable 09/06/16 04:32 [place] Anomaly Not Reportable 09/06/16 04:32 Eddy Rods Not Reportable 09/06/16 04:32 Platelet Estimate Appears normal 09/06/16 04:32 Clumped Platelets Not Reportable 09/06/16 04:32 Plt Clumps, EDTA Not Reportable 09/06/16 04:32 Large Platelets Not Reportable 09/06/16 04:32 Giant Platelets Not Reportable 09/06/16 04:32 Platelet Satelliting Not Reportable 09/06/16 04:32 Plt Morphology Comment Not Reportable 09/06/16 04:32 RBC Morphology Not Reportable 09/06/16 04:32 Dimorphic RBCs Not Reportable 09/06/16 04:32 Polychromasia Not Reportable 09/06/16 04:32 Hypochromasia Few 09/06/16 04:32 Poikilocytosis Not Reportable 09/06/16 04:32 Anisocytosis 1+ 09/06/16 04:32 Microcytosis Not Reportable 09/06/16 04:32 Macrocytosis Not Reportable 09/06/16 04:32 Spherocytes Not Reportable 09/06/16 04:32 Pappenheimer Bodies Not Reportable 09/06/16 04:32 Sickle Cells Not Reportable 09/06/16 04:32 Target Cells Not Reportable 09/06/16 04:32 Tear Drop Cells Not Reportable 09/06/16 04:32 Ovalocytes Not Reportable 09/06/16 04:32 Helmet Cells Not Reportable 09/06/16 04:32 [place] Bodies Not Reportable 09/06/16 04:32 [place] Rings Not Reportable 09/06/16 04:32 [place] Cells Not Reportable 09/06/16 04:32 Bite Cells Not Reportable 09/06/16 04:32 Crenated Cell Not Reportable 09/06/16 04:32 Elliptocytes Not Reportable 09/06/16 04:32 Acanthocytes (Spur) Not Reportable 09/06/16 04:32 Rouleaux Not Reportable 09/06/16 04:32 Hemoglobin C Crystals Not Reportable 09/06/16 04:32 Schistocytes Not Reportable 09/06/16 04:32 Malaria parasites Not Reportable 09/06/16 04:32 [place] Bodies Not Reportable 09/06/16 04:32 Hem Pathologist Commnt No 09/06/16 04:32 VBG pH 7.368 (7.320-7.420) 08/30/16 07:07 Sodium 140 mmol/L (137-145) 09/09/16 06:26 Potassium 4.9 mmol/L (3.6-5.0) 09/09/16 06:26 Chloride 106.3 mmol/L (98-107) 09/09/16 06:26 Carbon Dioxide 24 mmol/L (22-30) 09/09/16 06:26 Anion Gap 15 mmol/L 09/09/16 06:26 BUN 11 mg/dL (7-17) 09/09/16 06:26 Creatinine 1.7 mg/dL (0.7-1.2) H 09/09/16 06:26 Estimated GFR 40 ml/min 09/09/16 06:26 BUN/Creatinine Ratio 6.47 % 09/09/16 06:26 Glucose 104 mg/dL (65-100) H 09/09/16 06:26 POC Glucose 112 (70-105) H 09/09/16 07:27 Hemoglobin A1c 9.7 % (4-6) H 08/30/16 12:09 Lactic Acid 0.9 mmol/L (0.7-2.0) 09/02/16 10:49 Calcium 8.4 mg/dL (8.4-10.2) 09/09/16 06:26 Phosphorus 2.7 mg/dL (2.5-4.5) 08/31/16 05:50 Magnesium 2.1 mg/dL (1.7-2.3) 08/31/16 05:50 Total Bilirubin 0.4 mg/dL (0.1-1.2) 09/02/16 06:46 AST 26 units/L (5-40) 09/02/16 06:46 ALT 15 units/L (7-56) 09/02/16 06:46 Alkaline Phosphatase 135 units/L (35-129) H 09/02/16 06:46 Total Protein 6.1 g/dL (6.3-8.2) L 09/02/16 06:46 Albumin 1.8 g/dL (3.9-5) L 09/02/16 06:46 Albumin/Globulin Ratio 0.4 % 09/02/16 06:46 Triglycerides 126 mg/dL (2-149) 08/30/16 12:09 Cholesterol 106 mg/dL (50-199) 08/30/16 12:09 LDL Cholesterol Direct 74 mg/dL (50-130) 08/30/16 12:09 HDL Cholesterol 7 mg/dL (40-59) L 08/30/16 12:09 Cholesterol/HDL Ratio 15.14 % 08/30/16 12:09 Urine Color Yellow (Yellow) 08/29/16 Unknown Urine Turbidity Clear (Clear) 08/29/16 Unknown Urine pH 6.0 (5.0-7.0) 08/29/16 Unknown Ur Specific [place] 1.027 (1.003-1.030) 08/29/16 Unknown Urine Protein 100 mg/dl mg/dL (Negative) 08/29/16 Unknown Urine Glucose (UA) >=500 mg/dL (Negative) 08/29/16 Unknown Urine Ketones Neg mg/dL (Negative) 08/29/16 Unknown Urine Blood Mod (Negative) 08/29/16 Unknown Urine Nitrite Neg (Negative) 08/29/16 Unknown Urine Bilirubin Neg (Negative) 08/29/16 Unknown Urine Urobilinogen 4.0 mg/dL (<2.0) 08/29/16 Unknown Ur Leukocyte Esterase Neg (Negative) 08/29/16 Unknown Urine WBC (Auto) 3.0 /HPF (0.0-6.0) 08/29/16 Unknown Urine RBC (Auto) 7.0 /HPF (0.0-6.0) 08/29/16 Unknown U Epithel Cells (Auto) 2.0 /HPF (0-13.0) 08/29/16 Unknown Urine Bacteria (Auto) 1+ /HPF (Negative) 08/29/16 Unknown Urine Mucus Few /HPF 08/29/16 Unknown Urine HCG, Qual Negative (Negative) 08/30/16 Unknown Vancomycin Trough 33.0 ug/mL (5.0-20.0) H 09/07/16 14:25 Random Vancomycin 25.4 ug/mL (0-40.0) 09/08/16 08:17 Ketones 0.5 mmol/L (-0.28) H 08/30/16 07:07 Blood Type O POSITIVE 09/06/16 10:20 Antibody Screen Negative 09/06/16 10:20 Crossmatch See Detail 09/06/16 10:20 - Imaging and Cardiology CT scan - abdomen: report reviewed
[2016-09-09] MEDS ORDERED: SUBLIMAZE ONE (12:42)
[2016-09-09] MEDS ORDERED: VERSED ONE (12:42)
[2016-09-09] MEDS ORDERED: HEPARIN/NS 5000 UNIT/500ML(CATH LAB) 500 ML IR ONE (12:42)
[2016-09-09] MEDS ORDERED: XYLOCAINE 1%/ EPI 1:100,000 INFILTRATI ONE (12:43)
[2016-09-09] MEDS ORDERED: ANCEF/STERILE WATER 2 GM/20 ML 2 GM/20 ML SYRINGE IV ONE (12:43)
--- NOTE | 2016-09-09 13:24 | Progress Note ---
Subjective Narrative: looks improving Induration much less wound vac change yesterday . will Cont same , left a massege with Dr montana to see his opinion . Objective Vital Signs - 12hr 09/09/16 09/09/16 09/09/16 01:48 02:03 02:33 Temperature 98.4 F 143 F H 97.2 F L Pulse Rate 78 74 76 Pulse Rate [ From Monitor] Pulse Rate [ Left Radial] Respiratory 18 18 18 Rate Blood Pressure 150/88 143/86 148/88 Blood Pressure [Right Arm] O2 Sat by Pulse 98 98 98 Oximetry 09/09/16 09/09/16 09/09/16 03:03 03:33 04:00 Temperature 97.2 F L 97.4 F L 97.4 F L Pulse Rate 74 74 Pulse Rate [ 73 From Monitor] Pulse Rate [ Left Radial] Respiratory 18 18 20 Rate Blood Pressure 135/82 129/81 Blood Pressure 137/86 [Right Arm] O2 Sat by Pulse 98 98 Oximetry 09/09/16 09/09/16 09/09/16 04:03 04:30 08:00 Temperature 97.4 F L 97.4 F L 98 F Pulse Rate 74 74 Pulse Rate [ From Monitor] Pulse Rate [ 72 Left Radial] Respiratory 18 18 18 Rate Blood Pressure 132/82 132/82 Blood Pressure 137/65 [Right Arm] O2 Sat by Pulse 98 98 Oximetry 09/09/16 09:21 Temperature Pulse Rate Pulse Rate [ From Monitor] Pulse Rate [ Left Radial] Respiratory Rate Blood Pressure Blood Pressure [Right Arm] O2 Sat by Pulse 98 Oximetry - Labs 09/09/16 06:26 09/09/16 06:26 Diabetes panel 09/09/16 Range/Units 06:26 Sodium 140 (137-145) mmol/L Potassium 4.9 (3.6-5.0) mmol/L Chloride 106.3 (98-107) mmol/L Carbon Dioxide 24 (22-30) mmol/L BUN 11 (7-17) mg/dL Creatinine 1.7 H (0.7-1.2) mg/dL Glucose 104 H (65-100) mg/dL Calcium 8.4 (8.4-10.2) mg/dL Calcium panel 09/09/16 Range/Units 06:26 Calcium 8.4 (8.4-10.2) mg/dL Pituitary panel 09/09/16 Range/Units 06:26 Sodium 140 (137-145) mmol/L Potassium 4.9 (3.6-5.0) mmol/L Chloride 106.3 (98-107) mmol/L Carbon Dioxide 24 (22-30) mmol/L BUN 11 (7-17) mg/dL Creatinine 1.7 H (0.7-1.2) mg/dL Glucose 104 H (65-100) mg/dL Calcium 8.4 (8.4-10.2) mg/dL Adrenal panel 09/09/16 Range/Units 06:26 Sodium 140 (137-145) mmol/L Potassium 4.9 (3.6-5.0) mmol/L Chloride 106.3 (98-107) mmol/L Carbon Dioxide 24 (22-30) mmol/L BUN 11 (7-17) mg/dL Creatinine 1.7 H (0.7-1.2) mg/dL Glucose 104 H (65-100) mg/dL Calcium 8.4 (8.4-10.2) mg/dL
[2016-09-09] MEDS ORDERED: ZOFRAN ONE (13:46)
--- NOTE | 2016-09-09 13:53 | Operative Report ---
Operative Report Operative Report: This is a 41-year-old female with an anterior abdominal wall abscess. She requires long-term IV access for antibiotic administration. The patient's history and imaging were reviewed. After a detailed discussion of the risks and benefits of the procedure, informed consent was signed. The patient was placed in the supine position on the procedure table. Preliminary sonography of the left arm was performed, and permanent images were acquired. The patient was prepped and draped in the usual sterile fashion. After administration of local anesthetic, the left basilic vein was accessed under ultrasound guidance. Over a wire, the 21-gauge access needle was exchanged for a 4 Stateless peel-away sheath/tissue dilator. After measuring the appropriate length, a 50 cm double-lumen Bard power PICC line was advanced through the peel-away sheath. After confirming position of the tip in the right atrium, each port was aspirated and flushed. A final image was acquired, the PICC line was secured to the skin with a StatLock, and sterile dressings were applied. The patient was then transported off the table in stable condition. Preliminary sonographic imaging demonstrates a patent and compressible left basilic vein. The tip of the left basilic PICC line is in the right atrium, confirmed by fluoroscopy. Each port flushes and aspirates freely.
--- NOTE | 2016-09-09 17:44 | Progress Note ---
Subjective Date of service: 09/09/16 Principal diagnosis: sepsis Interval history: Patient seen and evaluated. No new complaints. PHYSICAL EXAM VS - Afebrile chest - good air entry cvs - s1s2 abd - wound vac in place. LABS - Reviewed. See lab section no growth so far from cultures. ASSESSMENT 1. Sepsis 2. Abdominal wall abscess s/p debridement. 4. DM2 4. Obesity RECOMMENDATION 1. continue zosyn. Added vancomycin after it was dropped without my knowledge. Please ensure patient gets vancomycin at appropriate dosing. She is diabetic with infected necrotic wound. Culture no growth. Providing broad coverage. 2. Continue wound care. Objective - Constitutional Vitals: Vital Signs Temp Pulse Resp BP Pulse Ox 97.7 F 76 20 182/89 98 09/09/16 14:30 09/09/16 14:30 09/09/16 14:30 09/09/16 14:30 09/09/16 09:21 Temperature -Last 24 Hours Temperature 97.7 F Temperature 98 F Temperature 97.4 F Temperature 97.4 F Temperature 97.4 F Temperature 97.4 F Temperature 97.2 F Temperature 97.2 F Temperature 143 F Temperature 98.4 F Temperature 98.6 F - Labs CBC & Chem 7: 09/09/16 06:26 09/09/16 06:26 Labs: Abnormal lab results 09/06/16 09/08/16 09/09/16 Range/Units 10:20 21:22 06:26 RBC 3.32 L (3.65-5.03) M/mm3 Hgb 8.5 L (10.1-14.3) gm/dl Hct 26.5 L (30.3-42.9) % MCH 26 L (28-32) pg RDW 16.3 H (13.2-15.2) % Plt Count 504 H (140-440) K/mm3 [place] % (Auto) 7.9 H (0.0-7.3) % [place] # 0.9 H (0.0-0.8) K/mm3 Seg Neutrophils % 73.5 H (40.0-70.0) % Seg Neutrophils # 8.0 H (1.8-7.7) K/mm3 Creatinine (0.7-1.2) mg/dL Glucose (65-100) mg/dL POC Glucose 160 H (70-105) Crossmatch See Detail 09/09/16 09/09/16 Range/Units 06:26 07:27 RBC (3.65-5.03) M/mm3 Hgb (10.1-14.3) gm/dl Hct (30.3-42.9) % MCH (28-32) pg RDW (13.2-15.2) % Plt Count (140-440) K/mm3 [place] % (Auto) (0.0-7.3) % [place] # (0.0-0.8) K/mm3 Seg Neutrophils % (40.0-70.0) % Seg Neutrophils # (1.8-7.7) K/mm3 Creatinine 1.7 H (0.7-1.2) mg/dL Glucose 104 H (65-100) mg/dL POC Glucose 112 H (70-105) Crossmatch
[2016-09-09] MEDS: MORPHINE IV PRN (21:48)
[2016-09-09] MEDS: LEVEMIR SUB-Q SCH (22:00)
[2016-09-10] MEDS: ZOSYN/NS 4.5GM/100ML 4.5 GM/100 ML VIAL IV SCH ×3 (06:11→22:07)
[2016-09-10 06:46] LABS: Hematocrit 25.6 % (30.3-42.9); Hemoglobin 8.3 gm/dl (10.1-14.3); Mean Corpuscular HGB Conc 33 % (30-34); Mean Corpuscular Volume 79 fl (79-97); Platelet Count 437 K/mm3 (140-440); Red Blood Count 3.23 M/mm3 (3.65-5.03); White Blood Count 10.5 K/mm3 (4.5-11.0)
[2016-09-10 06:48] LABS: Mean Corpuscular Hemoglobin 26 pg (28-32)
[2016-09-10 06:59] LABS: BUN/Creatinine Ratio 7.64; Calcium 8.2 mg/dL (8.4-10.2); Potassium 4.7 mmol/L (3.6-5.0)
--- NOTE | 2016-09-10 08:10 | Vascular Lab Report ---
MISCELLANEOUS VESSEL IDENTIFICATION: COMMENTS ON THE SCAN: The left basilic vein was identified and under real-time ultrasound guidance was cannulated. IMPRESSION: Successful ultrasound guided vein cannulation.
[2016-09-10] MEDS ORDERED: VANCOMYCIN PHARMACY TO DOSE IV SCH (10:00)
--- NOTE | 2016-09-10 10:37 | Progress Note ---
Assessment and Plan Assessment and plan: Patient is a 41-year-old woman with a history of type II diabetes mellitus, morbid obesity BMI 58.4, chronic anemia, obstructive sleep apnea on CPAP and diabetic peripheral neuropathy who presented with abscess in the right lower quadrants of the anterior abdominal wall. She was placed on 2 antibiotics as outpatient but was unable to tolerate PO meds. In the emergency department, she was found to have abscess, cellulitis of the anterior abdominal wall right lower quadrant and BG of 440. Abscess with cellulitis of the anterior abdominal wall right lower quadrant: S/P I&D on 09/01, and Wound debridement on 09/04 with replacement of wound vac , wound culture on 09/01 growing gram-negative rods, repeat cultures are negative for any organism Placed on vanc and zosyn by ID, d/c vanc on 09/07 as Cx grew gm negative fawn and Cr trending up==> Vancomycin restarted by ID Ordered for a PICC line, IR placed plan for further debridement and evaluation by plastic surgeon per Dr. Mccracken Sepsis, POA: From anterior abdominal wall abscess. continue sepsis protocol, continue abx Diabetes mellitus type 2: Continue insulin long acting and Sliding-scale ADA diet Diabetic peripheral neuropathy: Continue with gabapentin. Obstructive sleep apnea: continue CPAP QHS SHABBIR, resolved - suspected, poa vasomotor nephropathy - Continue iv fluid, monitor renal function. - d/c vanc Anemia, likely due to blood loss -Transfused 1 unit packed RBC pending, reordered today - Increased to Hemoglobin 8.5 Disposition: LTAC fo better wound care, CM notified Microbiology 09/04/16 Unknown Abdomen Surgical Biopsy Culture - Preliminary 09/01/16 14:53 Abdomen Surgical Culture - Final 09/04/16 Unknown Abdomen Surgical Culture - Final 09/04/16 Unknown Abdomen Anaerobic Culture - Preliminary 09/01/16 14:53 Abdomen Anaerobic Culture - Preliminary 08/30/16 07:07 Peripheral/Venous Blood Culture - Final NO GROWTH AFTER 5 DAYS 08/30/16 07:07 Peripheral/Venous Blood Culture - Final NO GROWTH AFTER 5 DAYS Await plastic surgery eval she may need more surgeries Ordered interventional radiology to place a PICC line for at least 3 weeks antibiotics, discussed with infectious disease Patient doesnt want LTAC so home ABx and wound vac to be setup History Interval history: Patient seen and examined. Follow up on abdominal infection. Overnight uneventful. No cp, sob, n/v or severe headaches. Imaging, old records, testing, labs, nursing notes reviewed. Hospitalist Physical - Physical exam Narrative exam: GEN: WDWN, NAD, AWAKE, ALERT, ORIENTATED 3, BMI 58.4 HEENT: NCAT, PERRL, EOMI, OP CLEAR NECK: SUPPLE, NO THYROMEGALY, NO JVD, NO LAD CVS: RRR, NORMAL S1S2 LUNGS/CHEST: CTA B, NORMAL CHEST EXPANSION B, GOOD AIR ENTRY B ABD: SOFT, RIGHT LOWER QUADRANT EXTENSIVE OPEN ABDOMINAL WOUND WITH WOUND VAC IN PLACE, GBS, NO REBOUND OR GUARDING MSK: FROM X 4 EXTREMITIES NEURO: CN 2-12 GROSSLY INTACT, NO new FOCAL DEFICITS PSY: CALM - Constitutional Vitals: Temp Pulse Resp BP Pulse Ox 97.7 F 85 18 153/88 97 09/10/16 07:30 09/10/16 07:30 09/10/16 07:30 09/10/16 07:30 09/10/16 07:30 General appearance: Present: no acute distress, obese Results - Labs CBC & Chem 7: 09/10/16 06:23 09/10/16 06:23 Labs: Laboratory Last Values WBC 10.5 K/mm3 (4.5-11.0) 09/10/16 06:23 RBC 3.23 M/mm3 (3.65-5.03) L 09/10/16 06:23 Hgb 8.3 gm/dl (10.1-14.3) L 09/10/16 06:23 Hct 25.6 % (30.3-42.9) L 09/10/16 06:23 MCV 79 fl (79-97) 09/10/16 06:23 MCH 26 pg (28-32) L 09/10/16 06:23 MCHC 33 % (30-34) 09/10/16 06:23 RDW 16.0 % (13.2-15.2) H 09/10/16 06:23 Plt Count 437 K/mm3 (140-440) 09/10/16 06:23 Lymph % (Auto) 15.4 % (13.4-35.0) 09/09/16 06:26 [place] % (Auto) 7.9 % (0.0-7.3) H 09/09/16 06:26 Eos % (Auto) 2.5 % (0.0-4.3) 09/09/16 06:26 Baso % (Auto) 0.7 % (0.0-1.8) 09/09/16 06:26 Lymph # 1.7 K/mm3 (1.2-5.4) 09/09/16 06:26 [place] # 0.9 K/mm3 (0.0-0.8) H 09/09/16 06:26 Eos # 0.3 K/mm3 (0.0-0.4) 09/09/16 06:26 Baso # 0.1 K/mm3 (0.0-0.1) 09/09/16 06:26 Add Manual Diff Complete 09/06/16 04:32 Total Counted 100 09/06/16 04:32 Seg Neutrophils % 73.5 % (40.0-70.0) H 09/09/16 06:26 Seg Neuts % (Manual) 57.0 % (40.0-70.0) 09/06/16 04:32 Band Neutrophils % 6.0 % 09/06/16 04:32 Lymphocytes % (Manual) 26.0 % (13.4-35.0) 09/06/16 04:32 Reactive Lymphs % (Man) 0 % 09/06/16 04:32 Monocytes % (Manual) 7.0 % (0.0-7.3) 09/06/16 04:32 Eosinophils % (Manual) 4.0 % (0.0-4.3) 09/06/16 04:32 Basophils % (Manual) 0 % (0.0-1.8) 09/06/16 04:32 Metamyelocytes % 0 % 09/06/16 04:32 Myelocytes % 0 % 09/06/16 04:32 Promyelocytes % 0 % 09/06/16 04:32 Blast Cells % 0 % 09/06/16 04:32 Nucleated RBC % Not Reportable 09/06/16 04:32 Seg Neutrophils # 8.0 K/mm3 (1.8-7.7) H 09/09/16 06:26 Seg Neutrophils # Man 7.6 K/mm3 (1.8-7.7) 09/06/16 04:32 Band Neutrophils # 0.8 K/mm3 09/06/16 04:32 Lymphocytes # (Manual) 3.5 K/mm3 (1.2-5.4) 09/06/16 04:32 Abs React Lymphs (Man) 0.0 K/mm3 09/06/16 04:32 Monocytes # (Manual) 0.9 K/mm3 (0.0-0.8) H 09/06/16 04:32 Eosinophils # (Manual) 0.5 K/mm3 (0.0-0.4) H 09/06/16 04:32 Basophils # (Manual) 0.0 K/mm3 (0.0-0.1) 09/06/16 04:32 Metamyelocytes # 0.0 K/mm3 09/06/16 04:32 Myelocytes # 0.0 K/mm3 09/06/16 04:32 Promyelocytes # 0.0 K/mm3 09/06/16 04:32 Blast Cells # 0.0 K/mm3 09/06/16 04:32 WBC Morphology Not Reportable 09/06/16 04:32 Hypersegmented Neuts Not Reportable 09/06/16 04:32 Hyposegmented Neuts Not Reportable 09/06/16 04:32 Hypogranular Neuts Not Reportable 09/06/16 04:32 Smudge Cells Not Reportable 09/06/16 04:32 Toxic Granulation Not Reportable 09/06/16 04:32 Toxic Vacuolation Not Reportable 09/06/16 04:32 Dohle Bodies Not Reportable 09/06/16 04:32 Pelger-Huet Anomaly Not Reportable 09/06/16 04:32 Eddy Rods Not Reportable 09/06/16 04:32 Platelet Estimate Appears normal 09/06/16 04:32 Clumped Platelets Not Reportable 09/06/16 04:32 Plt Clumps, EDTA Not Reportable 09/06/16 04:32 Large Platelets Not Reportable 09/06/16 04:32 Giant Platelets Not Reportable 09/06/16 04:32 Platelet Satelliting Not Reportable 09/06/16 04:32 Plt Morphology Comment Not Reportable 09/06/16 04:32 RBC Morphology Not Reportable 09/06/16 04:32 Dimorphic RBCs Not Reportable 09/06/16 04:32 Polychromasia Not Reportable 09/06/16 04:32 Hypochromasia Few 09/06/16 04:32 Poikilocytosis Not Reportable 09/06/16 04:32 Anisocytosis 1+ 09/06/16 04:32 Microcytosis Not Reportable 09/06/16 04:32 Macrocytosis Not Reportable 09/06/16 04:32 Spherocytes Not Reportable 09/06/16 04:32 Pappenheimer Bodies Not Reportable 09/06/16 04:32 Sickle Cells Not Reportable 09/06/16 04:32 Target Cells Not Reportable 09/06/16 04:32 Tear Drop Cells Not Reportable 09/06/16 04:32 Ovalocytes Not Reportable 09/06/16 04:32 Helmet Cells Not Reportable 09/06/16 04:32 [place] Bodies Not Reportable 09/06/16 04:32 [place] Rings Not Reportable 09/06/16 04:32 [place] Cells Not Reportable 09/06/16 04:32 Bite Cells Not Reportable 09/06/16 04:32 Crenated Cell Not Reportable 09/06/16 04:32 Elliptocytes Not Reportable 09/06/16 04:32 Acanthocytes (Spur) Not Reportable 09/06/16 04:32 Rouleaux Not Reportable 09/06/16 04:32 Hemoglobin C Crystals Not Reportable 09/06/16 04:32 Schistocytes Not Reportable 09/06/16 04:32 Malaria parasites Not Reportable 09/06/16 04:32 [place] Bodies Not Reportable 09/06/16 04:32 Hem Pathologist Commnt No 09/06/16 04:32 VBG pH 7.368 (7.320-7.420) 08/30/16 07:07 Sodium 142 mmol/L (137-145) 09/10/16 06:23 Potassium 4.7 mmol/L (3.6-5.0) 09/10/16 06:23 Chloride 106.0 mmol/L (98-107) 09/10/16 06:23 Carbon Dioxide 25 mmol/L (22-30) 09/10/16 06:23 Anion Gap 16 mmol/L 09/10/16 06:23 BUN 13 mg/dL (7-17) 09/10/16 06:23 Creatinine 1.7 mg/dL (0.7-1.2) H 09/10/16 06:23 Estimated GFR 40 ml/min 09/10/16 06:23 BUN/Creatinine Ratio 7.64 % 09/10/16 06:23 Glucose 163 mg/dL (65-100) H 09/10/16 06:23 POC Glucose 198 (70-105) H 09/10/16 07:43 Hemoglobin A1c 9.7 % (4-6) H 08/30/16 12:09 Lactic Acid 0.9 mmol/L (0.7-2.0) 09/02/16 10:49 Calcium 8.2 mg/dL (8.4-10.2) L 09/10/16 06:23 Phosphorus 2.7 mg/dL (2.5-4.5) 08/31/16 05:50 Magnesium 2.1 mg/dL (1.7-2.3) 08/31/16 05:50 Total Bilirubin 0.4 mg/dL (0.1-1.2) 09/02/16 06:46 AST 26 units/L (5-40) 09/02/16 06:46 ALT 15 units/L (7-56) 09/02/16 06:46 Alkaline Phosphatase 135 units/L (35-129) H 09/02/16 06:46 Total Protein 6.1 g/dL (6.3-8.2) L 09/02/16 06:46 Albumin 1.8 g/dL (3.9-5) L 09/02/16 06:46 Albumin/Globulin Ratio 0.4 % 09/02/16 06:46 Triglycerides 126 mg/dL (2-149) 08/30/16 12:09 Cholesterol 106 mg/dL (50-199) 08/30/16 12:09 LDL Cholesterol Direct 74 mg/dL (50-130) 08/30/16 12:09 HDL Cholesterol 7 mg/dL (40-59) L 08/30/16 12:09 Cholesterol/HDL Ratio 15.14 % 08/30/16 12:09 Urine Color Yellow (Yellow) 08/29/16 Unknown Urine Turbidity Clear (Clear) 08/29/16 Unknown Urine pH 6.0 (5.0-7.0) 08/29/16 Unknown Ur Specific [place] 1.027 (1.003-1.030) 08/29/16 Unknown Urine Protein 100 mg/dl mg/dL (Negative) 08/29/16 Unknown Urine Glucose (UA) >=500 mg/dL (Negative) 08/29/16 Unknown Urine Ketones Neg mg/dL (Negative) 08/29/16 Unknown Urine Blood Mod (Negative) 08/29/16 Unknown Urine Nitrite Neg (Negative) 08/29/16 Unknown Urine Bilirubin Neg (Negative) 08/29/16 Unknown Urine Urobilinogen 4.0 mg/dL (<2.0) 08/29/16 Unknown Ur Leukocyte Esterase Neg (Negative) 08/29/16 Unknown Urine WBC (Auto) 3.0 /HPF (0.0-6.0) 08/29/16 Unknown Urine RBC (Auto) 7.0 /HPF (0.0-6.0) 08/29/16 Unknown U Epithel Cells (Auto) 2.0 /HPF (0-13.0) 08/29/16 Unknown Urine Bacteria (Auto) 1+ /HPF (Negative) 08/29/16 Unknown Urine Mucus Few /HPF 08/29/16 Unknown Urine HCG, Qual Negative (Negative) 08/30/16 Unknown Vancomycin Trough 33.0 ug/mL (5.0-20.0) H 09/07/16 14:25 Random Vancomycin 25.4 ug/mL (0-40.0) 09/08/16 08:17 Ketones 0.5 mmol/L (-0.28) H 08/30/16 07:07 Blood Type O POSITIVE 09/06/16 10:20 Antibody Screen Negative 09/06/16 10:20 Crossmatch See Detail 09/06/16 10:20
[2016-09-10] MEDS ORDERED: VANCOMYCIN VIAL 1,500 MG in NACL 0.9% 500 ML 500 ML IV ONE (11:00)
[2016-09-10] MEDS: ASPIRIN PO SCH (11:23)
[2016-09-10] MEDS: HEPARIN SUB-Q SCH ×2 (11:24→22:55)
--- NOTE | 2016-09-10 11:48 | Progress Note ---
Subjective Narrative: wound looks clean dry , drainage is less will check in am with wound RN Objective Vital Signs - 12hr 09/10/16 09/10/16 09/10/16 00:42 04:15 07:30 Temperature 98.4 F 98.3 F 97.7 F Pulse Rate [ 83 From Monitor] Pulse Rate [ 85 Left Radial] Pulse Rate [ 80 Right Radial] Respiratory 18 20 18 Rate Blood Pressure 162/87 174/87 153/88 [Right Arm] O2 Sat by Pulse 94 96 97 Oximetry - Labs 09/10/16 06:23 09/10/16 06:23 Diabetes panel 09/10/16 Range/Units 06:23 Sodium 142 (137-145) mmol/L Potassium 4.7 (3.6-5.0) mmol/L Chloride 106.0 (98-107) mmol/L Carbon Dioxide 25 (22-30) mmol/L BUN 13 (7-17) mg/dL Creatinine 1.7 H (0.7-1.2) mg/dL Glucose 163 H (65-100) mg/dL Calcium 8.2 L (8.4-10.2) mg/dL Calcium panel 09/10/16 Range/Units 06:23 Calcium 8.2 L (8.4-10.2) mg/dL Pituitary panel 09/10/16 Range/Units 06:23 Sodium 142 (137-145) mmol/L Potassium 4.7 (3.6-5.0) mmol/L Chloride 106.0 (98-107) mmol/L Carbon Dioxide 25 (22-30) mmol/L BUN 13 (7-17) mg/dL Creatinine 1.7 H (0.7-1.2) mg/dL Glucose 163 H (65-100) mg/dL Calcium 8.2 L (8.4-10.2) mg/dL Adrenal panel 09/10/16 Range/Units 06:23 Sodium 142 (137-145) mmol/L Potassium 4.7 (3.6-5.0) mmol/L Chloride 106.0 (98-107) mmol/L Carbon Dioxide 25 (22-30) mmol/L BUN 13 (7-17) mg/dL Creatinine 1.7 H (0.7-1.2) mg/dL Glucose 163 H (65-100) mg/dL Calcium 8.2 L (8.4-10.2) mg/dL
[2016-09-10] MEDS: PERCOCET 5/325 PO PRN ×2 (12:28→21:55)
[2016-09-10] MEDS: VANCOMYCIN VIAL 1,750 MG in NACL 0.9% 500 ML 500 ML IV SCH (12:55)
--- NOTE | 2016-09-10 20:10 | Progress Note ---
Subjective Date of service: 09/10/16 Principal diagnosis: sepsis Interval history: Patient seen and evaluated. No new complaints. PHYSICAL EXAM VS - Afebrile chest - good air entry cvs - s1s2 abd - wound vac in place. LABS - Reviewed. See lab section wound culture - strep arginosus and bacteroides. ASSESSMENT 1. Sepsis 2. Abdominal wall abscess s/p debridement. 4. DM2 4. Obesity RECOMMENDATION 1. continue current iv abx 2. Will evaluate wound in am. Objective - Constitutional Vitals: Vital Signs Temp Pulse Resp BP Pulse Ox 98.8 F 75 16 171/93 98 09/10/16 16:00 09/10/16 16:00 09/10/16 16:00 09/10/16 16:00 09/10/16 10:00 Temperature -Last 24 Hours Temperature 98.8 F Temperature 97.9 F Temperature 97.7 F Temperature 98.3 F Temperature 98.4 F - Labs CBC & Chem 7: 09/10/16 06:23 09/10/16 06:23 Labs: Abnormal lab results 09/09/16 09/10/16 09/10/16 Range/Units 21:25 06:23 06:23 RBC 3.23 L (3.65-5.03) M/mm3 Hgb 8.3 L (10.1-14.3) gm/dl Hct 25.6 L (30.3-42.9) % MCH 26 L (28-32) pg RDW 16.0 H (13.2-15.2) % Creatinine 1.7 H (0.7-1.2) mg/dL Glucose 163 H (65-100) mg/dL POC Glucose 156 H (70-105) Calcium 8.2 L (8.4-10.2) mg/dL 09/10/16 09/10/16 09/10/16 Range/Units 07:43 11:27 15:55 RBC (3.65-5.03) M/mm3 Hgb (10.1-14.3) gm/dl Hct (30.3-42.9) % MCH (28-32) pg RDW (13.2-15.2) % Creatinine (0.7-1.2) mg/dL Glucose (65-100) mg/dL POC Glucose 198 H 179 H 132 H (70-105) Calcium (8.4-10.2) mg/dL
[2016-09-10] MEDS: LEVEMIR SUB-Q SCH (22:55)
[2016-09-11] MEDS: ZOSYN/NS 4.5GM/100ML 4.5 GM/100 ML VIAL IV SCH ×3 (05:31→21:07)
--- NOTE | 2016-09-11 10:18 | Progress Note ---
Assessment and Plan Assessment and plan: Patient is a 41-year-old woman with a history of type II diabetes mellitus, morbid obesity BMI 58.4, chronic anemia, obstructive sleep apnea on CPAP and diabetic peripheral neuropathy who presented with abscess in the right lower quadrants of the anterior abdominal wall. She was placed on 2 antibiotics as outpatient but was unable to tolerate PO meds. In the emergency department, she was found to have abscess, cellulitis of the anterior abdominal wall right lower quadrant and BG of 440. Abscess with cellulitis of the anterior abdominal wall right lower quadrant: S/P I&D on 09/01, and Wound debridement on 09/04 with replacement of wound vac , wound culture on 09/01 growing gram-negative rods, repeat cultures are negative for any organism Placed on vanc and zosyn by ID, d/c vanc on 09/07 as Cx grew gm negative fawn and Cr trending up==> Vancomycin restarted by ID Ordered for a PICC line, IR placed plan for further debridement and evaluation by plastic surgeon per Dr. Mccracken Sepsis, POA: From anterior abdominal wall abscess. continue sepsis protocol, continue abx Diabetes mellitus type 2: Continue insulin long acting and Sliding-scale ADA diet Diabetic peripheral neuropathy: Continue with gabapentin. Obstructive sleep apnea: continue CPAP QHS SHABBIR, resolved - suspected, poa vasomotor nephropathy - Continue iv fluid, monitor renal function. - d/c vanc Anemia, likely due to blood loss -Transfused 1 unit packed RBC pending, reordered today - Increased to Hemoglobin 8.5 Disposition: LTAC fo better wound care, CM notified Microbiology 09/04/16 Unknown Abdomen Surgical Biopsy Culture - Preliminary 09/01/16 14:53 Abdomen Surgical Culture - Final 09/04/16 Unknown Abdomen Surgical Culture - Final 09/04/16 Unknown Abdomen Anaerobic Culture - Preliminary 09/01/16 14:53 Abdomen Anaerobic Culture - Preliminary 08/30/16 07:07 Peripheral/Venous Blood Culture - Final NO GROWTH AFTER 5 DAYS 08/30/16 07:07 Peripheral/Venous Blood Culture - Final NO GROWTH AFTER 5 DAYS Await plastic surgery eval she may need more surgeries Ordered interventional radiology to place a PICC line for at least 3 weeks antibiotics, discussed with infectious disease Patient doesnt want LTAC so home ABx and wound vac to be setup new issue accelerated hypertension, stopped nss ivf. still waiting on home iv abx setup History Interval history: Patient seen and examined. Follow up on abdominal infection. Overnight uneventful. No cp, sob, n/v or severe headaches. Imaging, old records, testing, labs, nursing notes reviewed. Hospitalist Physical - Physical exam Narrative exam: GEN: WDWN, NAD, AWAKE, ALERT, ORIENTATED 3, BMI 58.4 HEENT: NCAT, PERRL, EOMI, OP CLEAR NECK: SUPPLE, NO THYROMEGALY, NO JVD, NO LAD CVS: RRR, NORMAL S1S2 LUNGS/CHEST: CTA B, NORMAL CHEST EXPANSION B, GOOD AIR ENTRY B ABD: SOFT, RIGHT LOWER QUADRANT EXTENSIVE OPEN ABDOMINAL WOUND WITH WOUND VAC IN PLACE, GBS, NO REBOUND OR GUARDING MSK: FROM X 4 EXTREMITIES NEURO: CN 2-12 GROSSLY INTACT, NO new FOCAL DEFICITS PSY: CALM - Constitutional Vitals: Temp Pulse Resp BP Pulse Ox 98.4 F 74 18 162/84 97 09/11/16 07:30 09/11/16 07:30 09/11/16 07:30 09/11/16 07:30 09/11/16 07:30 General appearance: Present: no acute distress, obese Results - Labs CBC & Chem 7: 09/10/16 06:23 09/11/16 06:15 Labs: Laboratory Last Values WBC 10.5 K/mm3 (4.5-11.0) 09/10/16 06:23 RBC 3.23 M/mm3 (3.65-5.03) L 09/10/16 06:23 Hgb 8.3 gm/dl (10.1-14.3) L 09/10/16 06:23 Hct 25.6 % (30.3-42.9) L 09/10/16 06:23 MCV 79 fl (79-97) 09/10/16 06:23 MCH 26 pg (28-32) L 09/10/16 06:23 MCHC 33 % (30-34) 09/10/16 06:23 RDW 16.0 % (13.2-15.2) H 09/10/16 06:23 Plt Count 437 K/mm3 (140-440) 09/10/16 06:23 Lymph % (Auto) 15.4 % (13.4-35.0) 09/09/16 06:26 Falls % (Auto) 7.9 % (0.0-7.3) H 09/09/16 06:26 Eos % (Auto) 2.5 % (0.0-4.3) 09/09/16 06:26 Baso % (Auto) 0.7 % (0.0-1.8) 09/09/16 06:26 Lymph # 1.7 K/mm3 (1.2-5.4) 09/09/16 06:26 Falls # 0.9 K/mm3 (0.0-0.8) H 09/09/16 06:26 Eos # 0.3 K/mm3 (0.0-0.4) 09/09/16 06:26 Baso # 0.1 K/mm3 (0.0-0.1) 09/09/16 06:26 Add Manual Diff Complete 09/06/16 04:32 Total Counted 100 09/06/16 04:32 Seg Neutrophils % 73.5 % (40.0-70.0) H 09/09/16 06:26 Seg Neuts % (Manual) 57.0 % (40.0-70.0) 09/06/16 04:32 Band Neutrophils % 6.0 % 09/06/16 04:32 Lymphocytes % (Manual) 26.0 % (13.4-35.0) 09/06/16 04:32 Reactive Lymphs % (Man) 0 % 09/06/16 04:32 Monocytes % (Manual) 7.0 % (0.0-7.3) 09/06/16 04:32 Eosinophils % (Manual) 4.0 % (0.0-4.3) 09/06/16 04:32 Basophils % (Manual) 0 % (0.0-1.8) 09/06/16 04:32 Metamyelocytes % 0 % 09/06/16 04:32 Myelocytes % 0 % 09/06/16 04:32 Promyelocytes % 0 % 09/06/16 04:32 Blast Cells % 0 % 09/06/16 04:32 Nucleated RBC % Not Reportable 09/06/16 04:32 Seg Neutrophils # 8.0 K/mm3 (1.8-7.7) H 09/09/16 06:26 Seg Neutrophils # Man 7.6 K/mm3 (1.8-7.7) 09/06/16 04:32 Band Neutrophils # 0.8 K/mm3 09/06/16 04:32 Lymphocytes # (Manual) 3.5 K/mm3 (1.2-5.4) 09/06/16 04:32 Abs React Lymphs (Man) 0.0 K/mm3 09/06/16 04:32 Monocytes # (Manual) 0.9 K/mm3 (0.0-0.8) H 09/06/16 04:32 Eosinophils # (Manual) 0.5 K/mm3 (0.0-0.4) H 09/06/16 04:32 Basophils # (Manual) 0.0 K/mm3 (0.0-0.1) 09/06/16 04:32 Metamyelocytes # 0.0 K/mm3 09/06/16 04:32 Myelocytes # 0.0 K/mm3 09/06/16 04:32 Promyelocytes # 0.0 K/mm3 09/06/16 04:32 Blast Cells # 0.0 K/mm3 09/06/16 04:32 WBC Morphology Not Reportable 09/06/16 04:32 Hypersegmented Neuts Not Reportable 09/06/16 04:32 Hyposegmented Neuts Not Reportable 09/06/16 04:32 Hypogranular Neuts Not Reportable 09/06/16 04:32 Smudge Cells Not Reportable 09/06/16 04:32 Toxic Granulation Not Reportable 09/06/16 04:32 Toxic Vacuolation Not Reportable 09/06/16 04:32 Dohle Bodies Not Reportable 09/06/16 04:32 Pelger-Huet Anomaly Not Reportable 09/06/16 04:32 Eddy Rods Not Reportable 09/06/16 04:32 Platelet Estimate Appears normal 09/06/16 04:32 Clumped Platelets Not Reportable 09/06/16 04:32 Plt Clumps, EDTA Not Reportable 09/06/16 04:32 Large Platelets Not Reportable 09/06/16 04:32 Giant Platelets Not Reportable 09/06/16 04:32 Platelet Satelliting Not Reportable 09/06/16 04:32 Plt Morphology Comment Not Reportable 09/06/16 04:32 RBC Morphology Not Reportable 09/06/16 04:32 Dimorphic RBCs Not Reportable 09/06/16 04:32 Polychromasia Not Reportable 09/06/16 04:32 Hypochromasia Few 09/06/16 04:32 Poikilocytosis Not Reportable 09/06/16 04:32 Anisocytosis 1+ 09/06/16 04:32 Microcytosis Not Reportable 09/06/16 04:32 Macrocytosis Not Reportable 09/06/16 04:32 Spherocytes Not Reportable 09/06/16 04:32 Pappenheimer Bodies Not Reportable 09/06/16 04:32 Sickle Cells Not Reportable 09/06/16 04:32 Target Cells Not Reportable 09/06/16 04:32 Tear Drop Cells Not Reportable 09/06/16 04:32 Ovalocytes Not Reportable 09/06/16 04:32 Helmet Cells Not Reportable 09/06/16 04:32 [place] Bodies Not Reportable 09/06/16 04:32 [place] Rings Not Reportable 09/06/16 04:32 Praveen Cells Not Reportable 09/06/16 04:32 Bite Cells Not Reportable 09/06/16 04:32 Crenated Cell Not Reportable 09/06/16 04:32 Elliptocytes Not Reportable 09/06/16 04:32 Acanthocytes (Spur) Not Reportable 09/06/16 04:32 Rouleaux Not Reportable 09/06/16 04:32 Hemoglobin C Crystals Not Reportable 09/06/16 04:32 Schistocytes Not Reportable 09/06/16 04:32 Malaria parasites Not Reportable 09/06/16 04:32 [place] Bodies Not Reportable 09/06/16 04:32 Hem Pathologist Commnt No 09/06/16 04:32 VBG pH 7.368 (7.320-7.420) 08/30/16 07:07 Sodium 142 mmol/L (137-145) 09/10/16 06:23 Potassium 4.7 mmol/L (3.6-5.0) 09/10/16 06:23 Chloride 106.0 mmol/L (98-107) 09/10/16 06:23 Carbon Dioxide 25 mmol/L (22-30) 09/10/16 06:23 Anion Gap 16 mmol/L 09/10/16 06:23 BUN 13 mg/dL (7-17) 09/10/16 06:23 Creatinine 1.6 mg/dL (0.7-1.2) H 09/11/16 06:15 Estimated GFR 43 ml/min 09/11/16 06:15 BUN/Creatinine Ratio 7.64 % 09/10/16 06:23 Glucose 163 mg/dL (65-100) H 09/10/16 06:23 POC Glucose 103 (70-105) 09/11/16 08:35 Hemoglobin A1c 9.7 % (4-6) H 08/30/16 12:09 Lactic Acid 0.9 mmol/L (0.7-2.0) 09/02/16 10:49 Calcium 8.2 mg/dL (8.4-10.2) L 09/10/16 06:23 Phosphorus 2.7 mg/dL (2.5-4.5) 08/31/16 05:50 Magnesium 2.1 mg/dL (1.7-2.3) 08/31/16 05:50 Total Bilirubin 0.4 mg/dL (0.1-1.2) 09/02/16 06:46 AST 26 units/L (5-40) 09/02/16 06:46 ALT 15 units/L (7-56) 09/02/16 06:46 Alkaline Phosphatase 135 units/L (35-129) H 09/02/16 06:46 Total Protein 6.1 g/dL (6.3-8.2) L 09/02/16 06:46 Albumin 1.8 g/dL (3.9-5) L 09/02/16 06:46 Albumin/Globulin Ratio 0.4 % 09/02/16 06:46 Triglycerides 126 mg/dL (2-149) 08/30/16 12:09 Cholesterol 106 mg/dL (50-199) 08/30/16 12:09 LDL Cholesterol Direct 74 mg/dL (50-130) 08/30/16 12:09 HDL Cholesterol 7 mg/dL (40-59) L 08/30/16 12:09 Cholesterol/HDL Ratio 15.14 % 08/30/16 12:09 Urine Color Yellow (Yellow) 08/29/16 Unknown Urine Turbidity Clear (Clear) 08/29/16 Unknown Urine pH 6.0 (5.0-7.0) 08/29/16 Unknown Ur Specific [place] 1.027 (1.003-1.030) 08/29/16 Unknown Urine Protein 100 mg/dl mg/dL (Negative) 08/29/16 Unknown Urine Glucose (UA) >=500 mg/dL (Negative) 08/29/16 Unknown Urine Ketones Neg mg/dL (Negative) 08/29/16 Unknown Urine Blood Mod (Negative) 08/29/16 Unknown Urine Nitrite Neg (Negative) 08/29/16 Unknown Urine Bilirubin Neg (Negative) 08/29/16 Unknown Urine Urobilinogen 4.0 mg/dL (<2.0) 08/29/16 Unknown Ur Leukocyte Esterase Neg (Negative) 08/29/16 Unknown Urine WBC (Auto) 3.0 /HPF (0.0-6.0) 08/29/16 Unknown Urine RBC (Auto) 7.0 /HPF (0.0-6.0) 08/29/16 Unknown U Epithel Cells (Auto) 2.0 /HPF (0-13.0) 08/29/16 Unknown Urine Bacteria (Auto) 1+ /HPF (Negative) 08/29/16 Unknown Urine Mucus Few /HPF 08/29/16 Unknown Urine HCG, Qual Negative (Negative) 08/30/16 Unknown Vancomycin Trough 33.0 ug/mL (5.0-20.0) H 09/07/16 14:25 Random Vancomycin 25.4 ug/mL (0-40.0) 09/08/16 08:17 Ketones 0.5 mmol/L (-0.28) H 08/30/16 07:07 Blood Type O POSITIVE 09/06/16 10:20 Antibody Screen Negative 09/06/16 10:20 Crossmatch See Detail 09/06/16 10:20
[2016-09-11] MEDS: ASPIRIN PO SCH (10:36)
[2016-09-11] MEDS: PERCOCET 5/325 PO PRN ×2 (10:37→21:04)
[2016-09-11] MEDS: HEPARIN SUB-Q SCH ×2 (10:37→21:10)
[2016-09-11] MEDS: NORVASC PO SCH (10:37)
[2016-09-11] MEDS: MORPHINE IV PRN (10:45)
[2016-09-11] MEDS: VANCOMYCIN VIAL 1,750 MG in NACL 0.9% 500 ML 500 ML IV SCH (13:00)
--- NOTE | 2016-09-11 15:43 | Progress Note ---
Subjective Narrative: wound clean , packed .will cont same ,will check in AM , will need resection of all the the flap ,will obtain CT . Objective Vital Signs - 12hr 09/11/16 09/11/16 07:30 12:00 Temperature 98.4 F 98.2 F Pulse Rate [ 74 74 Left Radial] Respiratory 18 20 Rate Blood Pressure 162/84 [Left Arm] Blood Pressure 187/91 [Right Arm] O2 Sat by Pulse 97 95 Oximetry - Labs 09/10/16 06:23 09/11/16 06:15 Diabetes panel 09/11/16 Range/Units 06:15 Creatinine 1.6 H (0.7-1.2) mg/dL Pituitary panel 09/11/16 Range/Units 06:15 Creatinine 1.6 H (0.7-1.2) mg/dL Adrenal panel 09/11/16 Range/Units 06:15 Creatinine 1.6 H (0.7-1.2) mg/dL
[2016-09-11 18:20] LABS: BUN/Creatinine Ratio 7.64; Calcium 8.3 mg/dL (8.4-10.2); Chloride 102.1 mmol/L (98-107); Potassium 4.4 mmol/L (3.6-5.0)
--- NOTE | 2016-09-11 20:12 | Cat Scan Report ---
FINAL REPORT PROCEDURE: CT ABDOMEN PELVIS WO CON TECHNIQUE: Computerized axial tomography of the abdomen and pelvis was performed without intravenous contrast. HISTORY: infected wound on rt side. COMPARISON: August 30, 2016 FINDINGS: Visualized lower thorax: Bilateral lower lung atelectasis.. Liver: Normal size and attenuation. Spleen: Normal size and attenuation. Gallbladder and biliary system: Cholecystectomy clips. Pancreas: Normal. Adrenals: Normal. Kidneys: Normal. GI tract: No dilated loops of bowel. Appendix is normal. Lymph nodes and mesentery: Normal. Vasculature: Normal. Bladder: Normal. Reproductive organs: Normal uterus.. Peritoneum: No free fluid. Musculoskeletal structures: Degenerative changes of the spine. Other: Right lateral abdominal wall hernia containing bowel. There is fat containing periumbilical hernia. There is large soft tissue wound involving right anterior and lateral abdominal wall. IMPRESSION: No intra-abdominal mass or obstruction. There is a large wound of the abdominal wall..
--- NOTE | 2016-09-11 20:39 | Progress Note ---
Subjective Date of service: 09/11/16 Principal diagnosis: sepsis Interval history: Patient seen and evaluated. No new complaints. PHYSICAL EXAM VS - Afebrile chest - good air entry cvs - s1s2 abd - wound vac in place. LABS - Reviewed. See lab section wound culture - strep arginosus and bacteroides. ASSESSMENT 1. Sepsis 2. Abdominal wall abscess s/p debridement. 4. DM2 4. Obesity RECOMMENDATION 1. Discussed at length with patient about plan of care. She does not want the wound vac. She prefers the wound to be packed. I informed her that she will need labor specialist to take care of the wound preferrably in a monitored setting. She insists she should be discharged home. 2. d/c planning on iv ceftriaxone 1g daily for two weeks plus oral flagyl 500mg every 8hourly for 2weeks. Out patient wound care. Patient must them be reevaluated for need of continued iv antibiotics. Objective - Constitutional Vitals: Vital Signs Temp Pulse Resp BP Pulse Ox 97.9 F 75 18 189/90 95 09/11/16 16:30 09/11/16 16:30 09/11/16 16:30 09/11/16 16:30 09/11/16 12:00 Temperature -Last 24 Hours Temperature 97.9 F Temperature 98.2 F Temperature 98.4 F Temperature 98.0 F - Labs CBC & Chem 7: 09/10/16 06:23 09/11/16 17:30 Labs: Abnormal lab results 09/10/16 09/11/16 09/11/16 Range/Units 22:46 06:15 12:38 Creatinine 1.6 H (0.7-1.2) mg/dL Glucose (65-100) mg/dL POC Glucose 142 H 115 H (70-105) Calcium (8.4-10.2) mg/dL 09/11/16 09/11/16 Range/Units 16:44 17:30 Creatinine 1.7 H (0.7-1.2) mg/dL Glucose 114 H (65-100) mg/dL POC Glucose 114 H (70-105) Calcium 8.3 L (8.4-10.2) mg/dL
[2016-09-11] MEDS: LEVEMIR SUB-Q SCH (23:37)
[2016-09-12] MEDS: ZOSYN/NS 4.5GM/100ML 4.5 GM/100 ML VIAL IV SCH ×2 (06:41→14:00)
--- NOTE | 2016-09-12 10:24 | Progress Note ---
Assessment and Plan Assessment and plan: Patient is a 41-year-old woman with a history of type II diabetes mellitus, morbid obesity BMI 58.4, chronic anemia, obstructive sleep apnea on CPAP and diabetic peripheral neuropathy who presented with abscess in the right lower quadrants of the anterior abdominal wall. She was placed on 2 antibiotics as outpatient but was unable to tolerate PO meds. In the emergency department, she was found to have abscess, cellulitis of the anterior abdominal wall right lower quadrant and BG of 440. Abscess with cellulitis of the anterior abdominal wall right lower quadrant: S/P I&D on 09/01, and Wound debridement on 09/04 with replacement of wound vac , wound culture on 09/01 growing gram-negative rods, repeat cultures are negative for any organism Placed on vanc and zosyn by ID, d/c vanc on 09/07 as Cx grew gm negative fawn and Cr trending up==> Vancomycin restarted by ID Ordered for a PICC line, IR placed plan for further debridement and evaluation by plastic surgeon per Dr. Mccracken Sepsis, POA: From anterior abdominal wall abscess. continue sepsis protocol, continue abx Diabetes mellitus type 2: Continue insulin long acting and Sliding-scale ADA diet Diabetic peripheral neuropathy: Continue with gabapentin. Obstructive sleep apnea: continue CPAP QHS SHABBIR, resolved - suspected, poa vasomotor nephropathy - Continue iv fluid, monitor renal function. - d/c vanc Anemia, likely due to blood loss -Transfused 1 unit packed RBC pending, reordered today - Increased to Hemoglobin 8.5 Disposition: LTAC fo better wound care, CM notified Microbiology 09/04/16 Unknown Abdomen Surgical Biopsy Culture - Preliminary 09/01/16 14:53 Abdomen Surgical Culture - Final 09/04/16 Unknown Abdomen Surgical Culture - Final 09/04/16 Unknown Abdomen Anaerobic Culture - Preliminary 09/01/16 14:53 Abdomen Anaerobic Culture - Preliminary 08/30/16 07:07 Peripheral/Venous Blood Culture - Final NO GROWTH AFTER 5 DAYS 08/30/16 07:07 Peripheral/Venous Blood Culture - Final NO GROWTH AFTER 5 DAYS Await plastic surgery eval she may need more surgeries Ordered interventional radiology to place a PICC line for at least 3 weeks antibiotics, discussed with infectious disease Patient doesnt want LTAC so home ABx and wound vac to be setup new issue accelerated hypertension, stopped nss ivf. still waiting on home iv abx setup==>d/w case management History Interval history: Patient seen and examined. Follow up on abdominal infection. Overnight uneventful. No cp, sob, n/v or severe headaches. Imaging, old records, testing, labs, nursing notes reviewed. She refuses wound vac, I d/w her at length the benefits as well as the risk. It is uncomfortable to her. Hospitalist Physical - Physical exam Narrative exam: GEN: WDWN, NAD, AWAKE, ALERT, ORIENTATED 3, BMI 58.4 HEENT: NCAT, PERRL, EOMI, OP CLEAR NECK: SUPPLE, NO THYROMEGALY, NO JVD, NO LAD CVS: RRR, NORMAL S1S2 LUNGS/CHEST: CTA B, NORMAL CHEST EXPANSION B, GOOD AIR ENTRY B ABD: SOFT, RIGHT LOWER QUADRANT EXTENSIVE OPEN ABDOMINAL WOUND WITH WOUND VAC IN PLACE, GBS, NO REBOUND OR GUARDING MSK: FROM X 4 EXTREMITIES NEURO: CN 2-12 GROSSLY INTACT, NO new FOCAL DEFICITS PSY: CALM - Constitutional Vitals: Temp Pulse Resp BP Pulse Ox 98.6 F 77 18 118/62 96 09/12/16 07:30 09/12/16 07:30 09/12/16 07:30 09/12/16 07:30 09/12/16 07:30 General appearance: Present: no acute distress, obese Results - Labs CBC & Chem 7: 09/10/16 06:23 09/11/16 17:30 Labs: Laboratory Last Values WBC 10.5 K/mm3 (4.5-11.0) 09/10/16 06:23 RBC 3.23 M/mm3 (3.65-5.03) L 09/10/16 06:23 Hgb 8.3 gm/dl (10.1-14.3) L 09/10/16 06:23 Hct 25.6 % (30.3-42.9) L 09/10/16 06:23 MCV 79 fl (79-97) 09/10/16 06:23 MCH 26 pg (28-32) L 09/10/16 06:23 MCHC 33 % (30-34) 09/10/16 06:23 RDW 16.0 % (13.2-15.2) H 09/10/16 06:23 Plt Count 437 K/mm3 (140-440) 09/10/16 06:23 Lymph % (Auto) 15.4 % (13.4-35.0) 09/09/16 06:26 [place] % (Auto) 7.9 % (0.0-7.3) H 09/09/16 06:26 Eos % (Auto) 2.5 % (0.0-4.3) 09/09/16 06:26 Baso % (Auto) 0.7 % (0.0-1.8) 09/09/16 06:26 Lymph # 1.7 K/mm3 (1.2-5.4) 09/09/16 06:26 [place] # 0.9 K/mm3 (0.0-0.8) H 09/09/16 06:26 Eos # 0.3 K/mm3 (0.0-0.4) 09/09/16 06:26 Baso # 0.1 K/mm3 (0.0-0.1) 09/09/16 06:26 Add Manual Diff Complete 09/06/16 04:32 Total Counted 100 09/06/16 04:32 Seg Neutrophils % 73.5 % (40.0-70.0) H 09/09/16 06:26 Seg Neuts % (Manual) 57.0 % (40.0-70.0) 09/06/16 04:32 Band Neutrophils % 6.0 % 09/06/16 04:32 Lymphocytes % (Manual) 26.0 % (13.4-35.0) 09/06/16 04:32 Reactive Lymphs % (Man) 0 % 09/06/16 04:32 Monocytes % (Manual) 7.0 % (0.0-7.3) 09/06/16 04:32 Eosinophils % (Manual) 4.0 % (0.0-4.3) 09/06/16 04:32 Basophils % (Manual) 0 % (0.0-1.8) 09/06/16 04:32 Metamyelocytes % 0 % 09/06/16 04:32 Myelocytes % 0 % 09/06/16 04:32 Promyelocytes % 0 % 09/06/16 04:32 Blast Cells % 0 % 09/06/16 04:32 Nucleated RBC % Not Reportable 09/06/16 04:32 Seg Neutrophils # 8.0 K/mm3 (1.8-7.7) H 09/09/16 06:26 Seg Neutrophils # Man 7.6 K/mm3 (1.8-7.7) 09/06/16 04:32 Band Neutrophils # 0.8 K/mm3 09/06/16 04:32 Lymphocytes # (Manual) 3.5 K/mm3 (1.2-5.4) 09/06/16 04:32 Abs React Lymphs (Man) 0.0 K/mm3 09/06/16 04:32 Monocytes # (Manual) 0.9 K/mm3 (0.0-0.8) H 09/06/16 04:32 Eosinophils # (Manual) 0.5 K/mm3 (0.0-0.4) H 09/06/16 04:32 Basophils # (Manual) 0.0 K/mm3 (0.0-0.1) 09/06/16 04:32 Metamyelocytes # 0.0 K/mm3 09/06/16 04:32 Myelocytes # 0.0 K/mm3 09/06/16 04:32 Promyelocytes # 0.0 K/mm3 09/06/16 04:32 Blast Cells # 0.0 K/mm3 09/06/16 04:32 WBC Morphology Not Reportable 09/06/16 04:32 Hypersegmented Neuts Not Reportable 09/06/16 04:32 Hyposegmented Neuts Not Reportable 09/06/16 04:32 Hypogranular Neuts Not Reportable 09/06/16 04:32 Smudge Cells Not Reportable 09/06/16 04:32 Toxic Granulation Not Reportable 09/06/16 04:32 Toxic Vacuolation Not Reportable 09/06/16 04:32 Dohle Bodies Not Reportable 09/06/16 04:32 Pel[place] Anomaly Not Reportable 09/06/16 04:32 Eddy Rods Not Reportable 09/06/16 04:32 Platelet Estimate Appears normal 09/06/16 04:32 Clumped Platelets Not Reportable 09/06/16 04:32 Plt Clumps, EDTA Not Reportable 09/06/16 04:32 Large Platelets Not Reportable 09/06/16 04:32 Giant Platelets Not Reportable 09/06/16 04:32 Platelet Satelliting Not Reportable 09/06/16 04:32 Plt Morphology Comment Not Reportable 09/06/16 04:32 RBC Morphology Not Reportable 09/06/16 04:32 Dimorphic RBCs Not Reportable 09/06/16 04:32 Polychromasia Not Reportable 09/06/16 04:32 Hypochromasia Few 09/06/16 04:32 Poikilocytosis Not Reportable 09/06/16 04:32 Anisocytosis 1+ 09/06/16 04:32 Microcytosis Not Reportable 09/06/16 04:32 Macrocytosis Not Reportable 09/06/16 04:32 Spherocytes Not Reportable 09/06/16 04:32 Pappenheimer Bodies Not Reportable 09/06/16 04:32 Sickle Cells Not Reportable 09/06/16 04:32 Target Cells Not Reportable 09/06/16 04:32 Tear Drop Cells Not Reportable 09/06/16 04:32 Ovalocytes Not Reportable 09/06/16 04:32 Helmet Cells Not Reportable 09/06/16 04:32 [place] Bodies Not Reportable 09/06/16 04:32 [place] Rings Not Reportable 09/06/16 04:32 [place] Cells Not Reportable 09/06/16 04:32 Bite Cells Not Reportable 09/06/16 04:32 Crenated Cell Not Reportable 09/06/16 04:32 Elliptocytes Not Reportable 09/06/16 04:32 Acanthocytes (Spur) Not Reportable 09/06/16 04:32 Rouleaux Not Reportable 09/06/16 04:32 Hemoglobin C Crystals Not Reportable 09/06/16 04:32 Schistocytes Not Reportable 09/06/16 04:32 Malaria parasites Not Reportable 09/06/16 04:32 [place] Bodies Not Reportable 09/06/16 04:32 Hem Pathologist Commnt No 09/06/16 04:32 VBG pH 7.368 (7.320-7.420) 08/30/16 07:07 Sodium 142 mmol/L (137-145) 09/10/16 06:23 Potassium 4.7 mmol/L (3.6-5.0) 09/10/16 06:23 Chloride 106.0 mmol/L (98-107) 09/10/16 06:23 Carbon Dioxide 26 mmol/L (22-30) 09/11/16 17:30 Anion Gap 16 mmol/L 09/10/16 06:23 BUN 13 mg/dL (7-17) 09/11/16 17:30 Creatinine 1.7 mg/dL (0.7-1.2) H 09/11/16 17:30 Estimated GFR 40 ml/min 09/11/16 17:30 BUN/Creatinine Ratio 7.64 % 09/11/16 17:30 Glucose 114 mg/dL (65-100) H 09/11/16 17:30 POC Glucose 129 (70-105) H 09/12/16 07:23 Hemoglobin A1c 9.7 % (4-6) H 08/30/16 12:09 Lactic Acid 0.9 mmol/L (0.7-2.0) 09/02/16 10:49 Calcium 8.3 mg/dL (8.4-10.2) L 09/11/16 17:30 Phosphorus 2.7 mg/dL (2.5-4.5) 08/31/16 05:50 Magnesium 2.1 mg/dL (1.7-2.3) 08/31/16 05:50 Total Bilirubin 0.4 mg/dL (0.1-1.2) 09/02/16 06:46 AST 26 units/L (5-40) 09/02/16 06:46 ALT 15 units/L (7-56) 09/02/16 06:46 Alkaline Phosphatase 135 units/L (35-129) H 09/02/16 06:46 Total Protein 6.1 g/dL (6.3-8.2) L 09/02/16 06:46 Albumin 1.8 g/dL (3.9-5) L 09/02/16 06:46 Albumin/Globulin Ratio 0.4 % 09/02/16 06:46 Triglycerides 126 mg/dL (2-149) 08/30/16 12:09 Cholesterol 106 mg/dL (50-199) 08/30/16 12:09 LDL Cholesterol Direct 74 mg/dL (50-130) 08/30/16 12:09 HDL Cholesterol 7 mg/dL (40-59) L 08/30/16 12:09 Cholesterol/HDL Ratio 15.14 % 08/30/16 12:09 Urine Color Yellow (Yellow) 08/29/16 Unknown Urine Turbidity Clear (Clear) 08/29/16 Unknown Urine pH 6.0 (5.0-7.0) 08/29/16 Unknown Ur Specific [place] 1.027 (1.003-1.030) 08/29/16 Unknown Urine Protein 100 mg/dl mg/dL (Negative) 08/29/16 Unknown Urine Glucose (UA) >=500 mg/dL (Negative) 08/29/16 Unknown Urine Ketones Neg mg/dL (Negative) 08/29/16 Unknown Urine Blood Mod (Negative) 08/29/16 Unknown Urine Nitrite Neg (Negative) 08/29/16 Unknown Urine Bilirubin Neg (Negative) 08/29/16 Unknown Urine Urobilinogen 4.0 mg/dL (<2.0) 08/29/16 Unknown Ur Leukocyte Esterase Neg (Negative) 08/29/16 Unknown Urine WBC (Auto) 3.0 /HPF (0.0-6.0) 08/29/16 Unknown Urine RBC (Auto) 7.0 /HPF (0.0-6.0) 08/29/16 Unknown U Epithel Cells (Auto) 2.0 /HPF (0-13.0) 08/29/16 Unknown Urine Bacteria (Auto) 1+ /HPF (Negative) 08/29/16 Unknown Urine Mucus Few /HPF 08/29/16 Unknown Urine HCG, Qual Negative (Negative) 08/30/16 Unknown Vancomycin Trough 33.0 ug/mL (5.0-20.0) H 09/07/16 14:25 Random Vancomycin 25.4 ug/mL (0-40.0) 09/08/16 08:17 Ketones 0.5 mmol/L (-0.28) H 08/30/16 07:07 Blood Type O POSITIVE 09/06/16 10:20 Antibody Screen Negative 09/06/16 10:20 Crossmatch See Detail 09/06/16 10:20
--- NOTE | 2016-09-12 10:30 | Discharge Summary ---
Providers - Providers Date of Admission: 08/30/16 11:24 Date of discharge: 09/12/16 Attending physician: CAREY HAYDEN 09/01/16 14:54 Consult to Dietitian/Nutrition [CONS] Routine Physician Instructions: 1200 Srinath diet Reason For Exam: Reason for Consult: DM overweight 09/02/16 07:17 Consult to Wound/ET Nurse [CONS] Routine Reason For Exam: wound eval 09/02/16 17:02 Consult to Physician [CONS] Routine Consulting Provider: BINH PARDO Reason For Exam: Abdominal wall abscess Place consult to:: dr. pardo Notified:: office Phone number called:: Was contact made?: Yes If yes, spoke with:: tr Time called:: 12:31 09/03/16 14:06 Consult to Physician [CONS] Routine Consulting Provider: BINH PARDO Reason For Exam: abx recommendation Place consult to:: ID/DR. PARDO Notified:: OFFICE Phone number called:: [phone] Was contact made?: Yes If yes, spoke with:: OLMAN Time called:: 10:10 Comment:: DEJUAN NOTIFIED 09/05/16 14:28 Consult to PICC Line RN [CONS] Routine Reason For Exam: iv abx Type Line:: PICC 09/06/16 14:46 Consult to Case Management [CONS] Routine Services Needed at Discharge: Other Notified:: EXTRUDER OPERATOR HORIZONTAL Additional Physician Instructions: LTAC Primary care physician: VETERINARIAN ASSISTANT Hospitalization Condition: Stable Hospital course: Patient is a 41-year-old woman with a history of type II diabetes mellitus, morbid obesity BMI 58.4, chronic anemia, obstructive sleep apnea on CPAP and diabetic peripheral neuropathy who presented with abscess in the right lower quadrants of the anterior abdominal wall. She was placed on 2 antibiotics as outpatient but was unable to tolerate PO meds. In the emergency department, she was found to have abscess, cellulitis of the anterior abdominal wall right lower quadrant and BG of 440. Abscess with cellulitis of the anterior abdominal wall right lower quadrant: S/P I&D on 09/01, and Wound debridement on 09/04 with replacement of wound vac , wound culture on 09/01 growing gram-negative rods, repeat cultures are negative for any organism Placed on vanc and zosyn by ID, d/c vanc on 09/07 as Cx grew gm negative fawn and Cr trending up==> Vancomycin restarted by ID Ordered for a PICC line, IR placed plan for further debridement and evaluation by plastic surgeon per Dr. Smith Sepsis, POA: From anterior abdominal wall abscess. continue sepsis protocol, continue abx Diabetes mellitus type 2, uncontrolled: Continue insulin long acting insulin and Sliding-scale ADA diet Diabetic peripheral neuropathy: Continue with gabapentin. Obstructive sleep apnea: continue CPAP QHS SHABBIR, resolved - suspected, poa vasomotor nephropathy - Continue iv fluid, monitor renal function. - d/c vanc Anemia, acute on chronic, likely due to blood loss from wound -Transfused 1 unit packed RBC pending, reordered today - Increased to Hemoglobin 8.5 Disposition: home with home health, she refuses placement Microbiology: 09/04/16 Unknown Abdomen Surgical Biopsy Culture - Preliminary 09/01/16 14:53 Abdomen Surgical Culture - Final 09/04/16 Unknown Abdomen Surgical Culture - Final 09/04/16 Unknown Abdomen Anaerobic Culture - Preliminary 09/01/16 14:53 Abdomen Anaerobic Culture - Preliminary 08/30/16 07:07 Peripheral/Venous Blood Culture - Final NO GROWTH AFTER 5 DAYS 08/30/16 07:07 Peripheral/Venous Blood Culture - Final NO GROWTH AFTER 5 DAYS Await plastic surgery evaluation, none came, she should continue to follow up with her Surgeon, Dr. Friedman Ordered interventional radiology to place a PICC line for at least 3 weeks antibiotics, discussed with infectious disease Patient doesnt want LTAC so home ABx and wound vac to be setup new issue accelerated hypertension, stopped nss ivf, improved still waiting on home iv abx setup==>d/w case management per ID physician, Dr. Pardo: "ASSESSMENT 1. Sepsis 2. Abdominal wall abscess s/p debridement. 4. DM2 4. Obesity RECOMMENDATION 1. Discussed at length with patient about plan of care. She does not want the wound vac. She prefers the wound to be packed. I informed her that she will need brownfield redevelopment specialist to take care of the wound preferrably in a monitored setting. She insists she should be discharged home. 2. d/c planning on iv ceftriaxone 1g daily for two weeks plus oral flagyl 500mg every 8hourly for 2weeks. Out patient wound care. Patient must them be reevaluated for need of continued iv antibiotics." Disposition: DISCHARGED TO HOME OR SELFCARE Time spent for discharge: 40 minutes Core Measure Documentation - Palliative Care Palliative Care/ Comfort Measures: Not Applicable - Core Measures Any of the following diagnoses?: none - VTE Discharge Requirements Deep Vein Thrombosis/Pulmonary Embolism Present on Admission: No Has pt received <5 days of overlap therapy or INR<2.0: No Anticoagulant overlap therapy prescribed at discharge: No Contraindication No Overlap Therapy order at DC: Not Indicated Exam - Physical Exam Narrative exam: GEN: WDWN, NAD, AWAKE, ALERT, ORIENTATED 3, BMI 58.4 HEENT: NCAT, PERRL, EOMI, OP CLEAR NECK: SUPPLE, NO THYROMEGALY, NO JVD, NO LAD CVS: RRR, NORMAL S1S2 LUNGS/CHEST: CTA B, NORMAL CHEST EXPANSION B, GOOD AIR ENTRY B ABD: SOFT, RIGHT LOWER QUADRANT EXTENSIVE OPEN ABDOMINAL WOUND WITH WOUND VAC IN PLACE, GBS, NO REBOUND OR GUARDING MSK: FROM X 4 EXTREMITIES NEURO: CN 2-12 GROSSLY INTACT, NO new FOCAL DEFICITS PSY: CALM - Constitutional Vitals: Temp Pulse Resp BP Pulse Ox 98.6 F 77 18 118/62 96 09/12/16 07:30 09/12/16 07:30 09/12/16 07:30 09/12/16 07:30 09/12/16 07:30 Plan Activity: advance as tolerated (no strenous activites until cleared by PCP. ) Diet: low salt, diabetic Wound: change dressing, per wound nurse instructions Special Instructions: record blood sugar diary, no heavy lifting, home health RN Follow up with: PRIMARY CARE, [Primary Care Provider] - 3-5 Days DYLON SMITH MD [Staff Physician] - 7 Days BINH PARDO MD [Staff Physician] - 7 Days Prescriptions: Insulin Detemir [Levemir] 30 units SUB-Q QHS #1 mo amLODIPine [Norvasc] 5 mg PO QDAY #30 tablet Aspirin [Aspirin TAB] 325 mg PO QDAY #30 tablet cefTRIAXone/NS 1 GM/50 ML [Rocephin/Ns 1 gm/50 ml] 1 gm IV Q24HR #1 piggyback Gabapentin [Neurontin] 300 mg PO TID PRN #90 capsule PRN Reason: Pain Insulin Lispro [HumaLOG VIAL] 1 dose SQ AC #2 vial metroNIDAZOLE [Flagyl] 500 mg PO Q8HR #2 wk oxyCODONE /ACETAMINOPHEN [Percocet 5/325 mg] 2 tab PO Q6H PRN #30 tablet PRN Reason: Pain , Severe (7-10) Pantoprazole [Protonix] 40 mg PO QDAY #30 tablet
[2016-09-12] MEDS: ASPIRIN PO SCH (10:58)
[2016-09-12] MEDS: NORVASC PO SCH (10:58)
[2016-09-12] MEDS: HEPARIN SUB-Q SCH (10:58)
[2016-09-12] MEDS: VANCOMYCIN VIAL 1,750 MG in NACL 0.9% 500 ML 500 ML IV SCH (15:21)
[2016-09-12] MEDS: MORPHINE IV PRN (16:02)
[2016-09-12 17:18] VITALS: BP 179/103
== END 2016-09-12 19:00 | disposition home or self-care (01) | DRG 853 ==
LOC: ED 18:50 → 3A 08-30 11:24 → 2B-SURG 09-04 17:24
PROVIDERS: ADMIT Family Medicine; ATTEND Internal Medicine
PROC: 0J983ZZ Drainage of Abdomen Subcutaneous Tissue and Fascia, Percutaneous Approach (ICD-10-PCS; 2016-09-01)
PROC: 0JD80ZZ Extraction of Abdomen Subcutaneous Tissue and Fascia, Open Approach (ICD-10-PCS; 2016-09-04)
PROC: 02H633Z Insertion of Infusion Device into Right Atrium, Percutaneous Approach (ICD-10-PCS; principal; 2016-09-09)
PROC: B244ZZZ Ultrasonography of Right Heart (ICD-10-PCS; 2016-09-09)
PROC: 30233N1 Transfusion of Nonautologous Red Blood Cells into Peripheral Vein, Percutaneous Approach (ICD-10-PCS; 2016-09-09)
DX: A41.9 Sepsis, unspecified organism (principal); N17.0 Acute kidney failure with tubular necrosis; L02.211 Cutaneous abscess of abdominal wall; L03.311 Cellulitis of abdominal wall; Z68.43 Body mass index [BMI] 50.0-59.9, adult; D62 Acute posthemorrhagic anemia; E11.65 Type 2 diabetes mellitus with hyperglycemia; I10 Essential (primary) hypertension; J45.909 Unspecified asthma, uncomplicated; E66.01 Morbid (severe) obesity due to excess calories; E11.42 Type 2 diabetes mellitus with diabetic polyneuropathy; E78.5 Hyperlipidemia, unspecified; G47.33 Obstructive sleep apnea (adult) (pediatric); K43.9 Ventral hernia without obstruction or gangrene; Z79.4 Long term (current) use of insulin; Z99.81 Dependence on supplemental oxygen
CPT/HCPCS: 36415; 36569; 74176; 74177; 76937; 77001; 80048; 80053; 80061; 80202; 81001; 81025; 82010; 82140; 82565; 82805; 82962; 83036; 83735; 84100; 85007; 85025; 85027; 86850; 86900; 86901; 86920; 87040; 87075; 87116; 88304; 88305; 94760; 96365; 96375; C1751; J0330; J0690; J1100; J1170; J1644; J1815; J1818; J1956; J2250; J2270; J2405; J2543; J2704; J2710; J3010; J3370; J7030; J7040; J7050; P9016; Q9967